=== PATIENT | male | born 1935 | race Caucasian/White ===

== ENCOUNTER 2017-01-02 12:20 | Inpatient (IN) ==
[2017-01-02] MEDS ORDERED: SALINE FLUSH 10ml SYRINGE IVF PRN (14:00)
--- OUTSIDE RECORDS SUMMARY | 2017-01-02 14:03 | External Medical Summary | Referral Summary ---
:1935 Author Organization [facility] Address [address] [place] [address] Care Team Providers Name Role Phone Daryl Solis I Primary Care Physician Encounter VC Date(s): 05/29/16 - 06/07/16 [facility] [address] [place] [address] [phone] Discharge Disposition: 01-Home or Self Care Attending Physician: Barb Valentine DO Admitting Physician: Eleni Belcher DO Vital Signs Most recent to oldest [Reference Range]: 1 Temperature Axillary [35.2-36.7 degC] 37 degC *HI* (06/05/16 8:45 PM) Temperature Oral [35.8-37.3 degC] 36.5 degC (06/07/16 4:00 PM) Temperature Temporal Artery [36.3-37.8 degC] 36.8 degC 1 (06/05/16 4:00 AM) Peripheral Pulse Rate [60-100 bpm] 65 bpm (06/07/16 4:00 PM) Heart Rate Monitored [60-100 bpm] 84 bpm 2 (06/03/16 12:40 AM) Respiratory Rate [14-20 br/min] 16 br/min (06/07/16 4:00 PM) Blood Pressure [90-140/60-90 mmHg] 127/69 mmHg (06/07/16 4:00 PM) Mean Arterial Pressure, Cuff 100 mmHg (06/06/16 8:40 PM) SpO2 97 % (06/07/16 4:00 PM) Remote Telemetry Ongoing (06/06/16 9:05 PM) 1Result Comment: WILL RECHECK BP, JUST INC/ BED [id number] Comment: Per Caitie at [facility], pt. sleeping at this time. [facility] notified RNof rhythm and rate at 0046 Problem List Condition Effective Dates Status Health Status Informant Acute pain(Confirmed) Active CAD (coronary artery Active patient disease)(Confirmed) At risk for falls(Confirmed)1 Active At risk for injury(Confirmed)2 Active At risk of pressure sore(Confirmed) Active Diabetes(Confirmed) Active patient HTN (hypertension)(Confirmed) Active patient Hypothyroid(Confirmed) Active patient Tissue perfusion Active alteration(Confirmed)3 DMII (diabetes mellitus, type Active patient 2)(Confirmed) Urinary incontinence(Confirmed)4 Active 1This problem was added by Discern Expert.2Problem added automatically by system based on initiation of Risk for Injury Plan of [id number] added automatically by system based on initiation of Tissue Perfusion Cerebral Plan of [id number] added automatically by system based on initiation of Urinary Incontinence Plan of Care Allergies, Adverse Reactions, Alerts Substance Reaction Severity Status penicillin BODY STIFFNESS Active Medications aspirin 81 mg oral tablet 81 mg 1 tabs, Oral, Daily, # 30 tabs, 0 Refill(s) Start Date: 06/07/16 Status: Ordereddocusate sodium 100 mg oral capsule 100 mg 1 caps, Oral, BID, Constipation, 0 Refill(s) Start Date: 06/07/16 Status: Ordereddoxycycline monohydrate 100 mg oral tablet 100 mg 1 tabs, Oral, BID, X 5 days, # 10 tabs, 0 Refill(s) Start Date: 06/07/16 Stop Date: 06/12/16 Status: Orderedglimepiride 4 mg oral tablet 8 mg, Oral, Daily, # 60 tabs, 0 Refill(s) Start Date: 06/07/16 Status: Orderedlevothyroxine 50 mcg, Oral, Before Breakfast, 0 Refill(s) Start Date: 05/29/16 Status: OrderedLipitor 20 mg oral tablet 20 mg 1 tabs, Oral, Daily, # 30 tabs, 0 Refill(s) Start Date: 06/07/16 Status: Orderedlisinopril 20 mg oral tablet 20 mg 1 tabs, Oral, Daily, # 30 tabs, 0 Refill(s) Start Date: 06/07/16 Status: Orderedmeclizine 12.5 mg, Oral, TID, as needed for dizziness, 0 Refill(s) Start Date: 05/29/16 Status: Orderedmetoprolol tartrate 25 mg oral tablet 25 mg 1 tabs, Oral, BID, 0 Refill(s) Start Date: 05/29/16 Status: OrderedVimpat 50 mg oral tablet 50 mg 1 tabs, Oral, BID, # 180 tabs, 0 Refill(s) Start Date: 06/07/16 Stop Date: 09/05/16 Status: Ordered Results Hematology Most recent to oldest [Reference Range]: 1 WBC [4.8-10.8 10*3/uL] 7.2 10*3/uL (06/07/16 5:36 AM) RBC [4.60-6.20] 4.45 *LOW* (06/07/16 5:36 AM) Hgb [14.0-18.0 gm/dL] 13.2 gm/dL *LOW* (06/07/16 5:36 AM) Hct [42.0-52.0 %] 39.0 % *LOW* (06/07/16 5:36 AM) MCV [82.0-99.0 fL] 87.6 fL (06/07/16 5:36 AM) MCH [27.0-32.0 pg] 29.7 pg (06/07/16 5:36 AM) MCHC [32.0-36.0 gm/dL] 33.8 gm/dL (06/07/16 5:36 AM) RDW [11.5-14.5 %] 13.0 % (06/07/16 5:36 AM) Platelet [150-400 10*3/uL] 214 10*3/uL (06/07/16 5:36 AM) MPV [9.4-12.3 fL] 9.6 fL (06/07/16 5:36 AM) Immature Granulocytes [0.0-1.0 %] 0.1 % (05/29/16 12:00 PM) Neutrophils [51-75 %] 89 % *HI* (05/29/16 12:00 PM) Lymphocytes [20-46 %] 5 % *LOW* (05/29/16 12:00 PM) Monocytes [4-11 %] 6 % (05/29/16 12:00 PM) Eosinophils [0-4 %] 0 % (05/29/16 12:00 PM) Basophils [0-2 %] 0 % (05/29/16 12:00 PM) Neutro Absolute [1.90-7.00] 7.52 *HI* (05/29/16 12:00 PM) Lymph Absolute [0.80-3.30] 0.44 *LOW* (05/29/16 12:00 PM) Weld Absolute [0.30-1.00] 0.52 (05/29/16 12:00 PM) Eos Absolute [0.00-0.50] 0.00 (05/29/16 12:00 PM) Baso Absolute [0.00-0.20] 0.01 (05/29/16 12:00 PM) Nucleated RBC Automated [0 /100 WBC] 0.0 /100 WBC (05/29/16 12:00 PM) Chemistry Most recent to oldest [Reference Range]: 1 Sodium Lvl [136-144 mEq/L] 136 mEq/L (06/07/16 7:05 AM) Potassium Lvl [3.6-5.1 mEq/L] 4.0 mEq/L (06/07/16 7:05 AM) Chloride [99-109 mEq/L] 101 mEq/L (06/07/16 7:05 AM) CO2 [22-32 mEq/L] 26 mEq/L (06/07/16 7:05 AM) AGAP [3-20] 9 (06/07/16 7:05 AM) BUN [4-20 mg/dL] 9 mg/dL (06/07/16 7:05 AM) Glucose Lvl [70-100 mg/dL] 158 mg/dL *HI* (06/07/16 7:05 AM) Creatinine Lvl [0.64-1.27 mg/dL] 0.71 mg/dL (06/07/16 7:05 AM) eGFR [>60] >60 1 (06/07/16 7:05 AM) Calcium Lvl [8.6-10.0 mg/dL] 8.9 mg/dL (06/07/16 7:05 AM) Albumin Lvl [3.5-4.8 gm/dL] 3.2 gm/dL *LOW* (06/03/16 6:00 AM) Total Protein [6.1-7.9 gm/dL] 5.6 gm/dL *LOW* (05/31/16 4:30 AM) Globulin [1.9-4.3 gm/dL] 2.7 gm/dL (05/31/16 4:30 AM) ALT [17-63 U/L] 12 U/L *LOW* (05/31/16 4:30 AM) AST [15-41 U/L] 24 U/L (05/31/16 4:30 AM) Alk Phos [26-104 U/L] 43 U/L (05/31/16 4:30 AM) Bili Total [0.2-1.2 mg/dL] 1.2 mg/dL 2 (05/31/16 4:30 AM) Magnesium Lvl [1.8-2.5 mg/dL] 1.9 mg/dL (06/04/16 11:32 AM) Phosphorus [2.4-4.7 mg/dL] 3.2 mg/dL 3 (06/03/16 6:00 AM) Total CK [49-397 U/L] 359 U/L (05/30/16 10:37 AM) Troponin [<0.06 ng/mL] 0.10 ng/mL 4 *HHI* (05/30/16 4:18 AM) Sodium Venous [136-144 mEq/L] 142 mEq/L (05/29/16 3:25 PM) Potassium Venous [3.6-5.1 mEq/L] 3.8 mEq/L 5 (05/29/16 3:25 PM) Calcium Ionized Venous [1.19-1.41 mmol/L] 1.06 mmol/L *LOW* (05/29/16 3:25 PM) Total CO2 Venous [25-29 mEq/L] 29 mEq/L (05/29/16 3:25 PM) HGB Venous NPT [14.0-16.0 gm/dL] 13.6 gm/dL *LOW* (05/29/16 3:25 PM) HCT Venous [42.0-52.0 %] 40.0 % *LOW* (05/29/16 3:25 PM) Glucose Venous [70-100 mg/dL] 324 mg/dL *HI* (05/29/16 3:25 PM) BUN Venous [4-20] 16 (05/29/16 3:25 PM) Creatinine Venous [0.7-1.2 mg/dL] 0.9 mg/dL (05/29/16 3:25 PM) Venous CL [99-109 mEq/L] 99 mEq/L (05/29/16 3:25 PM) Anion Gap, Tyrone [3-20] 14 (05/29/16 3:25 PM) Blood Glucose, Capillary [70-100 mg/dL] 151 mg/dL *HI* (06/07/16 1:57 PM) Chol [0-200 mg/dL] 126 mg/dL (05/29/16 12:00 PM) Trig [0-150 mg/dL] 95 mg/dL (05/29/16 12:00 PM) HDL [>40 mg/dL] 26 mg/dL *ABN* (05/29/16 12:00 PM) LDL [0-100 mg/dL] 81 mg/dL (05/29/16 12:00 PM) VLDL Cholesterol [0-30 mg/dL] 19 mg/dL (05/29/16 12:00 PM) Cardiac Risk [0.0-5.7] 4.8 (05/29/16 12:00 PM) Hgb A1c [4.1-5.6 %] 9.1 % *HI* (05/31/16 4:30 AM) eAvg Glucose 214.5 mg/dL (05/31/16 4:30 AM) 1Result Comment: Multiply eGFR results by 1.21 for race.2Result Comment: Naproxen, specifically the metabolite O-desmethylnaproxen, may cause spurious elevation in Total Bilirubin levels.3Result Comment: High dosages of liposomal Amphotericin B (AmBisome) therapy or other drug preparations that use a liposomal envelope to facilitate drug delivery may cause falsely elevated results for phosphorus.4Result Comment: Critical value called, and read-back verified. Called to MARCIA Geronimo at 05/30/2016 05:195Result Comment: This test was performed on a whole blood specimen. The presence or absence of hemolysis cannot be assessed. Hemolysis can falsely elevate potassium levels. Normals are for venous specimens only.Toxicology Most recent to oldest [Reference Range]: 1 U Amphetamine Scrn Negative (05/29/16 1:37 PM) U Cocaine Scrn Negative (05/29/16 1:37 PM) U Cannab Scrn Negative (05/29/16 1:37 PM) U Opiate Scrn Negative (05/29/16 1:37 PM) U PCP Scrn Negative (05/29/16 1:37 PM) U Benzodiazepine Scrn Negative (05/29/16 1:37 PM) U Barbiturate Scrn Negative (05/29/16 1:37 PM) Methadone Lvl Negative (05/29/16 1:37 PM) Tricyclics Not Detected 1 (05/29/16 1:37 PM) 1Result Comment: Cut-off concentrations: Amphetamines: 1000 ng/mL Cocaine: 300 ng/mL Cannabinoid: 50 ng/mL Opiate: 300 ng/mL Phencyclidine (PCP): 25 ng/mL Benzodiazepine: 200 ng/mL Barbiturate: 200 ng/mL Methadone: 300 ng/mL Tricyclic: 300 ng/mL The urine drug screen assays are qualitative screens. A more specific GC/MS method must be performed to obtain a confirmed analytical result. Unconfirmed screening results must not be used for non-medical purposes(e.g. employment or legal testing)Urinalysis Most recent to oldest [Reference Range]: 1 UA Color Yellow (06/05/16 6:14 PM) UA Appear Clear (06/05/16 6:14 PM) UA pH [5.0-8.0] 6.0 (06/05/16 6:14 PM) UA Leuk Est [Negative] Pos 1+ *ABN* (06/05/16 6:14 PM) UA Nitrite [Negative] Positive *ABN* (06/05/16 6:14 PM) UA Protein [Negative] Pos 1+ *ABN* (06/05/16 6:14 PM) UA Glucose [Negative] Pos 3+ *ABN* (06/05/16 6:14 PM) UA Ketones [Negative] Negative (06/05/16 6:14 PM) UA Urobilinogen [<1.0] Negative (06/05/16 6:14 PM) UA Bili [Negative] Negative (06/05/16 6:14 PM) UA Blood [Negative] Pos 1+ *ABN* (06/05/16 6:14 PM) UA Spec Grav [1.003-1.030] 1.015 (06/05/16 6:14 PM) Type Clean Catch (06/05/16 6:14 PM) UA WBC [0-4 /HPF] >50 /HPF *ABN* (06/05/16 6:14 PM) UA RBC [0-2] 0-2 (06/05/16 6:14 PM) Epithelial Cells None Seen (06/05/16 6:14 PM) UA Bacteria Rare (06/05/16 6:14 PM) UA Mucous Present (06/05/16 6:14 PM) Microbiology Reports TEST:Urine Culture STATUS:Auth (Verified) BODY SITE: SOURCE:Urine COLLECTED DATE/TIME:06/05/16 6:14 PMUrine Culture- - - - - - - Positive urine culture (even if >100,000 cfu/ml) without presence of symptoms does not require antibiotic treatment unless the patient is or undergoing urinary surgery. Please document as bacteriuria. Staphylococcus, coagulase negative >100,000 cfu/ml ORGANISM:Staphylococcus coagulase negative Immunizations No data available for this section Procedures No data available for this section Social History Social History Type Response Smoking Status Never smoker Assessment and Plan No data available for this section
--- NOTE | 2017-01-02 14:26 | Emergency Department Report ---
General Adult HPI - General Chief complaint: Weakness Stated complaint: dizzy,weakness,fall,no balance Time Seen by Provider: 01/02/17 13:53 Source: patient, family Mode of arrival: ambulatory Limitations: no limitations - History of Present Illness HPI narrative: 81-year-old male presents to the emergency department with a chief complaint of generalized weakness which has been increasing over the past 2 weeks. Patient states that he was weak earlier today and suffered a fall because of the weakness. Patient notes that he did hit the left side of his ribs against a kitchen appliance. Patient notes a mild dull discomfort locally at the site of injury. No other complaints or associated symptoms. He was at home when his symptoms began. Symptoms have been persistent in nature since onset. No other complaints or associated symptoms. - Related Data Home Medications Medication Instructions Recorded Confirmed Cyanocobalamin (Vitamin B-12) 1,000 mcg PO DAILY #0 tab 05/04/16 01/02/17 [Vitamin B-12] Aspirin 81 mg PO DAILY 01/02/17 01/02/17 Coenzyme Q-10 [Co Q-10] 200 mg PO DAILY 01/02/17 01/02/17 Duloxetine [Cymbalta] 90 mg PO DAILY 01/02/17 01/02/17 Glimepiride [Amaryl] 8 mg PO WB 01/02/17 01/02/17 Lisinopril [Prinivil] 10 mg PO DAILY 01/02/17 01/02/17 Meclizine HCl 12.5 mg PO TID PRN 01/02/17 01/02/17 Pioglitazone [Actos] 30 mg PO DAILY 01/02/17 01/02/17 Pravastatin Sodium 80 mg PO HS 01/02/17 01/02/17 Previous Rx's Medication Instructions Recorded Levothyroxine Sodium 50 mcg PO ACB #30 tab 05/09/16 Nitroglycerin Oint [Nitro-Bid] 0.5 inch TOP O #0.5 inch 01/02/17 Allergies Allergy/AdvReac Type Severity Reaction Status Date / Time hydrochlorothiazide Allergy Intermediate SWELLING Verified 01/02/17 13:30 Penicillins Allergy Unknown Verified 01/02/17 13:30 losartan potassium Allergy Intermediate SWELLING Uncoded 12/28/11 17:09 pioglitazone HCl Allergy Mild FLUID Uncoded 12/28/11 17:09 RETENTION midazolam HCl Allergy Unknown Uncoded 12/28/11 17:09 Review of Systems Constitutional: Reports: weakness (generalized). Denies: fever, chills Eyes: Denies: eye pain, eye discharge ENT: Denies: ear pain, throat pain Cardiovascular: Denies: chest pain, palpitations Respiratory: Denies: cough, dyspnea Gastrointestinal: Denies: abdominal pain, nausea, vomiting, diarrhea Genitourinary: Denies: urgency, dysuria Musculoskeletal: Denies: back pain, arthralgia Integumentary: Denies: erythema, rash Neurological: Denies: headache, numbness Psychiatric: Denies: anxiety, depression Endocrine: Denies: fatigue, heat or cold intolerance Hematological/Lymphatic: Denies: easy bleeding, easy bruising Allergic/Immunologic: Denies: facial swelling, urticaria PFSH Patient Stated Medical History Cataracts Yes Coronary Artery Disease Yes Hypertension Yes Diabetes Mellitus Type 2 Yes Hx Urinary Tract Infection Yes Surgical History: CABG Family History: Reviewed and Non-contributory. - Social History Smoking status: Never smoker Substance use type: does not use Alcohol intake frequency: does not drink Physical Exam - Limitations Limitations: no limitations - General General appearance: alert, in no apparent distress - Normal Exams: Head:: Normocephalic without trauma Eyes:: Pupils are PERRLA w/ EOMI, No scleral icterus, irritation, or foreign bodies noted ENMT:: No facial trauma, nasal exudates, pharyngeal erythema, or exudates are noted Dental: No fractured, loose, or missing teeth noted Neck:: Full range of motion, without adenopathy, JVD, bruits or thyromegaly (No midline tenderness or deformity of the cervical spine. ) Chest/Respirations:: Clear all brewer, with good airflow, and symmetry bilaterally (L ribs tender to palpation without crepitus. No sign of trauma. ) Cardiovascular:: Regular rate and rhythm, without murmur or gallop, Pulses 2+ all extremities, capillary refill, <2 seconds all extremities Abdomen:: Bowel sounds positive, soft, non-tender, non-distended, no hepatosplenomegaly, masses or bruits noted Lymphatic:: No lymphadenopathy, or lymphedema noted Musculoskeletal:: No tenderness, or deformity noted, good range of motion, all extremities Integumentary:: No rashes, hives, or bruising noted, hair and nails, without abnormality Neurological:: Patient is alert, and oriented, cranial nerves, motor/sensory/ cerebellar, exams w/o gross deficits, to observation Psychiatric:: Patient exhibits, appropriate attention, emotion and affect Course Vital Signs Temperature 98.1 F 01/02/17 12:30 Pulse Rate 62 01/02/17 12:30 Respiratory Rate 18 01/02/17 12:30 Blood Pressure 103/52 01/02/17 12:30 Pulse Oximetry 99 01/02/17 12:30 Temperature 98.2 F 01/02/17 20:00 Pulse Rate 73 01/03/17 06:00 Respiratory Rate 27 H 01/03/17 06:00 Blood Pressure 168/76 H 01/03/17 06:00 Pulse Oximetry 100 01/03/17 06:00 Medical Decision Making - [facility] Narrative Medical decision making narrative: Labs / imaging were discussed in detail with the patient and family and questions are answered. Patient's potassium is noted to be 2.0. While in the emergency department the patient has 2 separate episodes and noted to be bradycardic in the 30s and recovered to the 50s. Patient is discussed with Dr. Ramirez who will see the patient in consultation and admitted to the service of the hospitalist Dr. Pennington. Patient is admitted to the hospital in improved condition. 40 meq of potassium by mouth 1 and 40 meq of potassium intravenously were ordered. Patient is admitted to the intensive care unit in improved condition. No further orders from accepting or consulting physicians who were in agreement with the current plan of management. Patient is admitted to the hospital in improved condition. - Differential Diagnosis Symptomatic bradycardia, rib fx, metabolic disorder, dehydration - Lab Data Result diagrams: 01/03/17 04:30 01/03/17 04:30 Lab Results 01/02/17 01/02/17 Range/Units 14:24 14:24 WBC 6.3 (4.5-11.0) T/MM3 RBC 3.62 L (4.50-5.90) M/MM3 Hgb 10.4 L (13.5-17.5) GM/DL Hct 32.6 L (41-53) % MCV 90.1 (80-100) UM3 MCH 28.7 (26-34) UUG MCHC 31.9 (31-37) GM/DL RDW Std Deviation 49.0 (36.9-50.2) FL Plt Count 167 (130-400) T/MM3 MPV 9.8 (9.4-12.4) UM3 Immature Gran % (Auto) 0.2 (0.0-0.5) % Neut % (Auto) 79.1 H (33-66) % Lymph % (Auto) 15.0 L (23-45) % Burnet % (Auto) 4.9 (0-9.0) % Eos % (Auto) 0.6 (0-4) % Baso % (Auto) 0.2 (0-2) % Neut # 5.0 (1.8-7.7) T/MM3 Lymph # 1.0 (1-4.8) T/MM3 Burnet # 0.3 (0-0.8) T/MM3 Eos # 0.0 (0-0.5) T/MM3 Baso # 0.0 (0-0.2) T/MM3 Abs Immat Gran (auto) 0.01 (0.00-0.03) T/MM3 Turbidity < 20 (0-20) Sodium 143 (134-144) MEQ/L Potassium 2.0 L* (3.6-5) MEQ/L Chloride 92 L (98-107) MEQ/L Carbon Dioxide 41 H* (22-30) MEQ/L Anion Gap 10 (5-15) MEQ/L BUN 14.0 (9-20) MG/DL Creatinine 1.0 (0.8-1.5) MG/DL GFR Calculation 72 BUN/Creatinine Ratio 14 (6-26) RATIO Glucose 254 H (75-110) MG/DL Calculated Osmolality 285 H (261-280) MOSM/KG Calcium 9.0 (8.4-10.2) MG/DL Total Bilirubin 1.30 (0.20-1.30) MG/DL Icterus Index < 2 (0-7) AST 20 (17-59) U/L ALT 27 (21-72) U/L Alkaline Phosphatase 82 (38-126) U/L Troponin I 0.068 (0-0.12) ng/ml Total Protein 6.8 (6.3-8.2) G/DL Albumin 3.6 (3.5-5.0) G/DL Globulin 3.2 (2.4-3.6) G/DL Albumin/Globulin Ratio 1.1 (1.1-2.2) RATIO TSH 1.37 (0.47-4.68) MIU/L Specimen Hemolysis < 15 (0-25) - Radiology Data CT HEAD - No acute processes. L Ribs with Chest X-ray: Non-displaced 10th rib fracture otherwise negative. - EKG Data EKG #1 EKG results narrative: Sinus bradycardia. 1st degree AV block. No STEMI. 52 bpm. Disposition Clinical Impression: hypokalemia, bradycardia Rib fracture Qualifiers: Encounter type: initial encounter Rib fracture type: single rib Fracture type: closed Laterality: left Qualified Code(s): S22.32XA - Fracture of one rib, left side, initial encounter for closed fracture [place] [facility] [place] Condition: Stable Time of Disposition: 15:00 (Admit. Dr. Pennington. ) - Seen By: physician
--- NOTE | 2017-01-02 14:49 | CT Scan Report ---
EXAM: CT head/brain wo con DATE: 01/02/2017 12:00 AM ENCOUNTER: Initial INDICATION: dizzy COMPARISON: 12/28/2011 TECHNIQUE: 5 mm axial tomographic images were obtained of the head without contrast. The current CT scan was performed using radiation dose-reduction techniques. FINDINGS: Ill defined hypoattenuations within the periventricular deep white matter, a nonspecific finding, however most suggestive of chronic small vessel ischemic disease. Intracranial atherosclerotic calcifications noted. The ward-white matter junction is otherwise normal. No intra or extra-axial mass or hemorrhage is identified. There is no midline shift. Symmetric prominence of the ventricles and cerebral sulci consistent with age appropriate cerebral volume loss. The ventricles are otherwise normal in shape and morphology. The basilar cisterns are patent. No acute osseous or soft tissue abnormality. Near complete opacification of the left sphenoid sinus with high-density material suggesting chronic inspissated secretions. The remaining visualized paranasal sinuses are normal. The visualized portions of the orbits and globes are normal. The mastoid air cells are clear. IMPRESSION: 1. No acute intracranial process identified by CT. 2. Age appropriate cerebral volume loss and mild chronic small vessel ischemic disease. 3. Likely chronic left sphenoid sinus disease. .
--- NOTE | 2017-01-02 15:07 | XRay Report ---
Indication: Injury Procedure: XR ribs LT min 3V w [id number]: Encounter: Initial Comparison: Chest radiographs 12/28/2011 Technique: An AP view of the chest and three views of the left ribs were obtained. Findings: Lungs and airways: Normal lung volumes. No focal airspace consolidation. Normal pulmonary vasculature. Pleura: No pleural effusion or pneumothorax. Heart and mediastinum: Postoperative changes of CABG. The cardiomediastinal silhouette and great vessels are otherwise within normal limits. Subtle cortical irregularity of the lateral left 10th rib seen only on the last of the submitted images. No acute osseous abnormality is seen. Postoperative changes of median sternotomy. Degenerative arthrosis of the AC joints. Impression: Nondisplaced lateral left 10th rib fracture with no pneumothorax or pleural effusion identified. .
[2017-01-02] MEDS ORDERED: POTASSIUM CHLORIDE PREMIX 10 MEQ/100 ML BAG IV SCH (16:00)
[2017-01-02] MEDS: NITROGLYCERIN 2% OINTMENT 1gm PACKET TP SCH ×2 (16:47→22:33)
[2017-01-02] MEDS: LIDOCAINE 1% 2ml INJ 10 MG, POTASSIUM CHLORIDE INJ 10 MEQ in NS 100 ML IV SCH ×4 (17:23→21:03)
--- NOTE | 2017-01-02 17:27 | History & Physical Report ---
<Cherry Johnson - Last Filed: 01/02/17 18:23> History of Present Illness Date: 01/02/17 Chief complaint: weakness, fall HPI: Riccardo Ackerman is an 81 year old male who was taken to [facility] ED for weakness and falling. Apparently over the last several months, he's had issues with weakness and falling - in more detail, however, he describes near-syncope/syncope, especially when he changes positions (i.e. bends down to pull his pants up). It most frequently occurs after urinating, but he reports feeling lightheaded/dizzy , like he's going to black out, when he changes positions doing other activities as well. He was admitted to [facility] in May, 2016 for stroke like symptoms. MRI at that time was negative for stroke, but neurology felt that he was having complex partial seizures and started him on Vimpat (which he's no longer taking for 2 reasons - first it was too expensive and second they didn't feel that he was having seizures - never had a witnessed one). After this hospitalization he lived with his daughter and son-in-law for about a month and then moved back home. However, family noticed increased weakness for about the last month, and recently took his keys away because they don't feel safe with him driving. He doesn't have a regular dietary intake and eats at odd times of the day - family also state that when they checked on him today he told them he hadn't eaten anything for 3 days (which he then denied to me). He has been trying to lose weight b/c his former PCP told him that if he lost 40 lbs he would no longer be diabetic, so over the last 6-7 months he's gone from 180 lbs to 140 lbs (but is still diabetic). His sugars typically range between 200-250 ( hgb A1c was 9.3% on 12/14/16). He also admits that he occasionally forgets to take his home meds, but this isn't too often. He has diabetic peripheral neuropathy to both feet but otherwise denies any paresthesias. No unilateral weakness, dysphagia, or choking. His son-in-law reports slurring of speech when he's dizzy, but overall denies any mental status changes other than occasional forgetfulness. He finished a course of abx for UTI last week, but doesn't get UTIs that often, despite having difficulty starting his stream of urine and difficulty emptying his bladder. He denies chest pain, palpitations, dyspnea, or recent leg swelling. He hasn't been sleeping well recently - has nocturia ( which was worse when he had the UTI). He denies any abdominal pain, nausea/ vomiting, constipation, or diarrhea. In the ED he was found to be profoundly hypokalemic with a level of 2.0. In addition, his palpated HR initially was in the 20s. By the time he was placed on the monitor it had improved into the 50-60s. However, during this interview his rhythm changed to bigeminy with a perfusing rate in the 30s - he remained asymptomatic and this resolved prior to transfer to the CCU. His BP increased greatly to 215/90s after hospital admission was recommended. CBC was unremarkable except for mild normocytic anemia (which is chronic). CT head was negative for acute findings. He was given PO and IV K bolus and admitted to the hospitalist service as an inpatient for electrolyte replacement and cardiac irritability with underlying CAD and DM. Review of Systems Comprehensive ROS: completed and no additional positive findings except those as stated - Constitutional Constitutional: Present: as per HPI - EENMT Eyes: Present: blurry vision (ever since cataracts removed) - Cardiovascular Cardiovascular: Absent: chest pain Vascular: Present: see HPI - Respiratory Respiratory: Present: as per HPI. Absent: cough - Gastrointestinal Gastrointestinal: Present: as per HPI - Genitourinary Genitourinary: Present: as per HPI - Musculoskeletal Musculoskeletal: Present: as per HPI - Integumentary/Breasts Integumentary: Present: rash (to left forearm) - Neurological Neurological: Present: as per HPI - Psychiatric Psychiatric: Present: as per HPI - Endocrine Endocrine: Present: as per HPI PFS CAD HTN History of syncope Type 2 DM, A1c was 9.3% on 12/14/16 Diabetic peripheral neuropathy Hypothyroidism - TSH was 0.96 on 12/14/16 Dyslipidemia Prostate cancer - radiation around 2006 Previous diagnoses of dementia (vascular vs. 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 Echocardiogram showed an EF of 55%, was otherwise unremarkable (read by Amira Gerber). * JENNIFER (creatinine peaked 1.7) - resolved * Uncontrolled diabetes - Hgb A1c 9.1 - glimepiride increased 8mg daily * Hypokalemia (mild) /Hypomagnesemia He was hospitalized at [facility] in 2011 with polymorphic VT and bradycardia, at which time he was mildly hypokalemic Surgical History: CABG x4 in 2010. Coronary stent x2. 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 Solis in [place]) CV _ used to see Dr. Chisholm but hasn't seen him for a while (doesn't wish to follow with him any longer) Medications Home Medications Medication Instructions Recorded Confirmed Type Cyanocobalamin (Vitamin B-12) 1,000 mcg PO DAILY #0 tab 05/04/16 01/02/17 History [Vitamin B-12] Aspirin 81 mg PO DAILY 01/02/17 01/02/17 History Coenzyme Q-10 [Co Q-10] 200 mg PO DAILY 01/02/17 01/02/17 History Duloxetine [Cymbalta] 90 mg PO DAILY 01/02/17 01/02/17 History Glimepiride [Amaryl] 8 mg PO WB 01/02/17 01/02/17 History Lisinopril [Prinivil] 10 mg PO DAILY 01/02/17 01/02/17 History Meclizine HCl 12.5 mg PO TID PRN 01/02/17 01/02/17 History Pioglitazone [Actos] 30 mg PO DAILY 01/02/17 01/02/17 History Pravastatin Sodium 80 mg PO HS 01/02/17 01/02/17 History Allergies Allergy/AdvReac Type Severity Reaction Status Date / Time hydrochlorothiazide Allergy Intermediate SWELLING Verified 01/02/17 13:30 Penicillins Allergy Unknown Verified 01/02/17 13:30 losartan potassium Allergy Intermediate SWELLING Uncoded 12/28/11 17:09 pioglitazone HCl Allergy Mild FLUID Uncoded 12/28/11 17:09 RETENTION midazolam HCl Allergy Unknown Uncoded 12/28/11 17:09 Exam Vital Signs: Temperature 98.1 F 01/02/17 12:30 Pulse Rate 56 L 01/02/17 16:45 Respiratory Rate 23 01/02/17 16:45 Blood Pressure 215/91 H 01/02/17 16:20 Pulse Oximetry 100 01/02/17 16:45 Telemetry Ectopy: Bigeminal PVC - Constitutional Present: no acute distress, well developed, thin - Routine HEENT Exam Head: Present: normocephalic Eye: Present: EOMI ENT: Present: mucous membranes moist, oropharynx clear. Absent: dentition normal (edentulous) - Routine Neck Exam Present: supple, lymphadenopathy (anterior cervical) - Routine Respiratory Exam Present: CTA bilaterally - Routine Cardiovascular Exam Present: S1, S2, bradycardia - Routine Abdominal Exam Present: soft, normoactive bowel sounds, non distended, non tender Comments: scaphoid abdomen - Routine Extremities Exam Present: no edema, pulses intact - Routine Skin Exam Present: intact, dry, pallor, warm, rash (left forearm (mild)) - Routine Neurological Exam Present: alert, oriented X3, CN II-XII intact, normal speech. Absent: motor deficit, altered mental status, nystagmus, facial asymmetry - Routine Psychiatric Exam Present: normal affect, normal thought process, cooperative Results - Labs CBC & Chem 7: 01/02/17 14:24 01/02/17 14:24 - ECG Data Tracing #1 Bradycardia Prolonged QT (U wave noted) Subtle ST depression in anterior leads - Imaging and Cardiology CT scan - head Status: image reviewed by me Additional comments: Type of Exam(s): CT head/brain wo con DATE: 01/02/2017 Ill defined hypoattenuations within the periventricular deep white matter, a nonspecific finding, however most suggestive of chronic small vessel ischemic disease. Intracranial atherosclerotic calcifications noted. The ward-white matter junction is otherwise normal. No intra or extra-axial mass or hemorrhage is identified. There is no midline shift. Symmetric prominence of the ventricles and cerebral sulci consistent with age appropriate cerebral volume loss. The ventricles are otherwise normal in shape and morphology. The basilar cisterns are patent. No acute osseous or soft tissue abnormality. Near complete opacification of the left sphenoid sinus with high-density material suggesting chronic inspissated secretions. The remaining visualized paranasal sinuses are normal. The visualized portions of the orbits and globes are normal. The mastoid air cells are clear. IMPRESSION: 1. No acute intracranial process identified by CT. 2. Age appropriate cerebral volume loss and mild chronic small vessel ischemic disease. 3. Likely chronic left sphenoid sinus disease. Chest x-ray Status: image reviewed by me Additional comments: Date of Exam: 01/02/17 Type of Exam(s): XR ribs LT min 3V w CXR1V Findings: Lungs and airways: Normal lung volumes. No focal airspace consolidation. Normal pulmonary vasculature. Pleura: No pleural effusion or pneumothorax. Heart and mediastinum: Postoperative changes of CABG. The cardiomediastinal silhouette and great vessels are otherwise within normal limits. Subtle cortical irregularity of the lateral left 10th rib seen only on the last of the submitted images. No acute osseous abnormality is seen. Postoperative changes of median sternotomy. Degenerative arthrosis of the AC joints. Impression: Nondisplaced lateral left 10th rib fracture with no pneumothorax or pleural effusion identified. Assessment and Plan (1) Hypokalemia Current visit: Yes Status: Acute DVT Prophylaxis: Lovenox Resuscitation Status: Full Code Assessment and Plan: ASSESSMENT Severe hypokalemia with bradycardia and bigeminy HTN with markedly elevated pressures CAD History of syncope Possible history of partial complex seizures - no longer on antiepileptic (was on Vimpat) Type 2 DM, A1c was 9.3% on 12/14/16 Diabetic peripheral neuropathy Hypothyroidism - TSH was 0.96 on 12/14/16 Dyslipidemia Prostate cancer - S/P radiation around 2006 PLAN Admit to CCU, inpatient status. Consult Dr. Wilkerson regarding cardiac ectopy. Case discussed with him. NTG paste ordered per attending. Replace K IV + PO. Check Mg. Recheck K this evening. History of urine retention and recent UTI - check UA. Straight cath if retention of 500 mL. Uncontrolled DM - monitor postprandial sugars. Resume diabetic meds. SSI (pt had been on insulin in the past, but chart from [facility] indicated he refused it). Advanced directives: Daughter Emilee is medical DPOA; Full code but wouldn't want life prolonged if there is little chance of recovery - i.e. no feeding tube. Family is aware of wishes. PCP: Dr. Paz. Hospital Course Summary Disclaimer: The visit summary below is not to be considered part of the above Progress Note. Hospital Course: 01/02/17 ASSESSMENT Severe hypokalemia with bradycardia and bigeminy HTN with markedly elevated pressures CAD History of syncope Possible history of partial complex seizures - no longer on antiepileptic (was on Vimpat) Type 2 DM, A1c was 9.3% on 12/14/16 Diabetic peripheral neuropathy Hypothyroidism - TSH was 0.96 on 12/14/16 Dyslipidemia Prostate cancer - S/P radiation around 2006 PLAN Admit to CCU, inpatient status. Consult Dr. Wilkerson regarding cardiac ectopy. Case discussed with him. NTG paste ordered per attending. Replace K IV + PO. Check Mg. Recheck K this evening. History of urine retention and recent UTI - check UA. Straight cath if retention of 500 mL. Uncontrolled DM - monitor postprandial sugars. Resume diabetic meds. SSI (pt had been on insulin in the past, but chart from [facility] indicated he refused it). Advanced directives: Daughter Emilee is medical DPOA; Full code but wouldn't want life prolonged if there is little chance of recovery - i.e. no feeding tube. Family is aware of wishes. PCP: Dr. Paz. <Ian Pennington - Last Filed: 01/02/17 18:58> History of Present Illness Date: 01/02/17 Exam Vital Signs: Temperature 98.1 F 01/02/17 12:30 Pulse Rate 56 L 01/02/17 16:45 Respiratory Rate 23 01/02/17 16:45 Blood Pressure 215/91 H 01/02/17 16:20 Pulse Oximetry 100 01/02/17 16:45 Results - Labs CBC & Chem 7: 01/02/17 14:24 01/02/17 18:04 Assessment and Plan (1) Hypokalemia Current visit: Yes Status: Acute GI Prophylaxis: other Assessment and Plan: Pt was seen and examined with Cherry in the ED. Noted above history findings as well as documented Physical exam findings. Pt SBP was very high and he was given Nitropaste. ED doctor reported pt HR was in the 20's at one time. Per Cherry pt went onto bigemi pattern with pulse deficit of 40/min - EKG showed HR of 80 every other beat was not felt. Pt is type II DM and states his HbA1c was 14% in the recent past but the last one was 9% PE Cachectic NC/AT Chest increased AP diameter - RRR Abd soft NT/ND Ext no edema. Diagnosis 1) Hypokalemia in a pt with uncontrolled HTN (Systolic) could be due to hyperaldosteronism - also with bradycardia and frequent PVCs in a pt with H.O CAD S/P CABG in the past. - R/O [place] - admit to the ICU - Syncope or near syncope - Check orthostatic BP - Cardiology consult as above. 2) Type II DM with HbA1C of 9.3% with macrovascular disease (CAD) and microvascular disease (neuropathy) - Will add Sliding scale. - get old records if needed to review diabetic control. 3) H.O Partial seizures - Was on Vimpat. No symptoms to suggest temporal lobe epilepsy at this time. 4) Hypothyroidism 5) H.O Prostate cancer. - H.O LUTS - with urinary rentention - cath if needed. Code status - FULL CODE> - Time spent with patient greater than 35 minutes Hospital Course Summary Disclaimer: The visit summary below is not to be considered part of the above Progress Note.
[2017-01-02] MEDS: ASPIRIN 81 MG CHEWABLE TABLET PO SCH (17:50)
[2017-01-02] MEDS: LISINOPRIL 10 MG TABLET PO SCH (17:50)
[2017-01-02] MEDS: ENOXAPARIN 40 MG/0.4 ML INJECTION SQ SCH (18:58)
[2017-01-02] MEDS: INSULIN ASPART 100unit/ml INJECTION SQ PRN (20:36)
[2017-01-03] MEDS: NITROGLYCERIN 2% OINTMENT 1gm PACKET TP SCH ×2 (04:09→11:51)
[2017-01-03] MEDS: LEVOTHYROXINE 50 MCG TABLET PO SCH (05:54)
[2017-01-03] MEDS: INSULIN ASPART 100unit/ml INJECTION SQ PRN ×4 (06:09→20:24)
[2017-01-03] MEDS: DULOXETINE 30 MG CAPSULE PO SCH (08:45)
[2017-01-03] MEDS: ASPIRIN 81 MG CHEWABLE TABLET PO SCH (08:45)
[2017-01-03] MEDS: LISINOPRIL 10 MG TABLET PO SCH (08:46)
[2017-01-03] MEDS: ENOXAPARIN 40 MG/0.4 ML INJECTION SQ SCH (08:46)
[2017-01-03] MEDS ORDERED: SPIRONOLACTONE 50 MG TABLET PO SCH (09:00)
--- NOTE | 2017-01-03 10:56 | Progress Note ---
Subjective: Pt states he is feeling a bit better today. Denies any near syncope or dizzy spells since admission. Objective Vital signs: Temperature 98.2 F 01/02/17 20:00 Pulse Rate 64 01/03/17 10:00 Respiratory Rate 19 01/03/17 10:00 Blood Pressure 136/65 01/03/17 10:00 Pulse Oximetry 95 01/03/17 10:00 Rhythm: Normal Sinus Rhythm Height/Weight/BMI: Height 5 ft 8 in Weight 63.8 kg Body Mass Index 21.4 - Constitutional Present: no acute distress, cachectic - Routine HEENT Exam Head: Present: normocephalic, atraumatic Eye: Present: EOMI, PERRL - Routine Respiratory Exam Present: accessory muscle use, CTA bilaterally - Routine Cardiovascular Exam Present: RRR, S1, S2 - Routine Abdominal Exam Present: soft, non distended, non tender - Routine Extremities Exam Absent: cyanosis, clubbing, edema - Routine Back/Spine/Pelvis Exam Back/Spine: Present: full ROM - Routine Neurological Exam Present: alert, oriented X3, CN II-XII intact - Routine Psychiatric Exam Present: normal affect, cooperative Results - Labs CBC & Chem 7: 01/03/17 04:30 01/03/17 04:30 Assessment and Plan (1) Hypokalemia Current visit: Yes Status: Acute DVT Prophylaxis: Lovenox GI Prophylaxis: other Resuscitation Status: Full Code Assessment and Plan: SUMMARY - This is a 81 YO male that was admitted yesterday due to recurrent falls at home, dizzy spells, near syncope. Pt SBP was very high in the ED, and he was given Nitropaste. ED doctor reported pt HR was in the 20's at one time. Per Cherry pt went onto bigemi pattern with pulse deficit of 40/min - EKG showed HR of 80 every other beat was not felt. Pt is type II DM and states his HbA1c was 14% in the recent past but the last one was 9% Rib X rays ".............................. Impression: Nondisplaced lateral left 10th rib fracture with no pneumothorax or pleural effusion identified. ..........................................." Diagnosis 1) S/P fall in a pt with marked hypertension in the ED and hypokalemia - with 10th rib fracture. Pt has extensive cardiac history including CABG and stents x 4. A) Hypertension and Hypokalemia - could be due to hyperaldosteronism - Aldosterone level ordered as well as renin. - Start Aldactone 50mg/day (01/03) - Cardiology consult with Dr Wilkerson has been completed. B) H/O CAD - No evidence of acute PR - TnI x 2 negative will check a third sample. - No pauses reported. 2) Type II DM with poor control per pt, reports last HbA1C of 9.3% with macrovascular disease (CAD) and microvascular disease (neuropathy) - Will add Sliding scale, continue close observation in the ICU. - Resume pravastatin 80mg/day 3) H.O Partial seizures - Was on Vimpat. No symptoms to suggest temporal lobe epilepsy at this time. 4) Hypothyroidism - TSH is normal. 5) H.O Prostate cancer. - H.O LUTS - with urinary rentention - cath if needed. PREVENTION DVT - LOVENOX PUD - OMEPRAZOLE. Code status - FULL CODE - Time spent with patient 25 - 35 minutes Sepsis Assessment - Evaluation Sepsis screening result: No Definite Risk Hospital Course Summary Disclaimer: The visit summary below is not to be considered part of the above Progress Note. Hospital Course: 01/02/17 ASSESSMENT Severe hypokalemia with bradycardia and bigeminy HTN with markedly elevated pressures CAD History of syncope Possible history of partial complex seizures - no longer on antiepileptic (was on Vimpat) Type 2 DM, A1c was 9.3% on 12/14/16 Diabetic peripheral neuropathy Hypothyroidism - TSH was 0.96 on 12/14/16 Dyslipidemia Prostate cancer - S/P radiation around 2006 PLAN Admit to CCU, inpatient status. Consult Dr. Wilkerson regarding cardiac ectopy. Case discussed with him. NTG paste ordered per attending. Replace K IV + PO. Check Mg. Recheck K this evening. History of urine retention and recent UTI - check UA. Straight cath if retention of 500 mL. Uncontrolled DM - monitor postprandial sugars. Resume diabetic meds. SSI (pt had been on insulin in the past, but chart from [facility] indicated he refused it). Advanced directives: Daughter Emilee is medical DPOA; Full code but wouldn't want life prolonged if there is little chance of recovery - i.e. no feeding tube. Family is aware of wishes. PCP: Dr. Paz.
--- NOTE | 2017-01-03 12:58 | Cardiology Consult Note ---
History of Present Illness Consult date: 01/03/17 History of present illness: Chief complaint arrhythmia Mr. Ackerman is a pleasant 81-year-old occasion male with a CABG he is to be seen by Dr. Peres at [facility] [address]. He was brought [place] [facility] [place] on 01/02/2017 following a fall. It happened in the bathroom as he was done he leaned forward and held on against rack to pull up his pants and then he describes feeling "and "numb all over and about to blackout and very lightheaded he fell down and besides his CAT. He denies preceding chest pain or pressure or palpitations. In the emergency room and before he was attached to the telemetry and he was reported to have a pulse rate in the 20s and we was placed on the telemetry he was found to have a frequent PVCs including ventricular bigeminy suite appears to his peripheral pulse was inaccurate. He was also found to be profoundly hypokalemic level of 2 is been getting intravenous and oral potassium chloride his and his potassium up to 2.9- 3.0 range. Patient apparently has been not eat has not been eating for over a month he has lost 40 pounds over several months. He has had falls for about 2 months and long-standing history of orthostatic hypotension documented in the past and the redemonstrated today here in CCU. Patient has been struggling also with confusion and issues been gradually declining for the last couple of years with his daughter his son-in-law is his main caregiver. They have not been any reported angina no unusual or new dyspnea or lower he has gotten short of breath with activity unchanged for several years. No orthopnea or PND. Patient was also noted to be I per tensive range of 200/90 is placed back on lisinopril. He is a started on spironolactone for hypokalemia and nitroglycerin paste was added for any concern about possible myocardial ischemia. Again patient denies any anginal type pain or change or significant in his shortness of breath. He is complaining of some rib pain since his fall which is readily reproducible by palpation. At one point there was a concern about possible seizure due to her mental status changes and confusion after falls and he was treated with an antiepileptic drug. Previous hospitalization months ago at [facility] also noted to have orthostatic hypotension and echocardiogram at that time read by Dr. layton Gerber showed normal LV function with out significant valvular dysfunction. According to family patient has not had any heart catheterization since CABG in 2010 and no recent stress nuclear scan that the recall. Review of Systems Review of systems: Comprehensive review of system is Entirely negative except as in history of present illness and no diarrhea nausea or vomiting patient did have recurrent UTI for which treated with antibiotics - Constitutional Constitutional: Present: as per HPI, anorexia - Cardiovascular Vascular: Present: see HPI - Genitourinary Genitourinary: Present: as per HPI PFSH Patient Stated Medical History Cataracts Yes Coronary Artery Disease Yes Hypertension Yes Diabetes Mellitus Type 2 Yes Hx Urinary Tract Infection Yes Surgical History: CABG 4 in 2010. Previous coronary stents 2 at proceeded his CABG no previous MS - Social History Smoking status: Never smoker Substance use type: does not use Alcohol intake frequency: holidays/special occasions only Medications Home Medications Medication Instructions Recorded Confirmed Type Cyanocobalamin (Vitamin B-12) 1,000 mcg PO DAILY #0 tab 05/04/16 01/02/17 History [Vitamin B-12] Aspirin 81 mg PO DAILY 01/02/17 01/02/17 History Coenzyme Q-10 [Co Q-10] 200 mg PO DAILY 01/02/17 01/02/17 History Duloxetine [Cymbalta] 90 mg PO DAILY 01/02/17 01/02/17 History Glimepiride [Amaryl] 8 mg PO WB 01/02/17 01/02/17 History Lisinopril [Prinivil] 10 mg PO DAILY 01/02/17 01/02/17 History Meclizine HCl 12.5 mg PO TID PRN 01/02/17 01/02/17 History Pioglitazone [Actos] 30 mg PO DAILY 01/02/17 01/02/17 History Pravastatin Sodium 80 mg PO HS 01/02/17 01/02/17 History Allergies Allergy/AdvReac Type Severity Reaction Status Date / Time hydrochlorothiazide Allergy Intermediate SWELLING Verified 01/02/17 13:30 Penicillins Allergy Unknown Verified 01/02/17 13:30 losartan potassium Allergy Intermediate SWELLING Uncoded 12/28/11 17:09 pioglitazone HCl Allergy Mild FLUID Uncoded 12/28/11 17:09 RETENTION midazolam HCl Allergy Unknown Uncoded 12/28/11 17:09 Exam Vital signs: Temperature 98.2 F 01/02/17 20:00 Pulse Rate 64 01/03/17 12:00 Respiratory Rate 19 01/03/17 10:00 Blood Pressure 136/65 01/03/17 10:00 Pulse Oximetry 95 01/03/17 10:00 Positive orthostasis with a 40 point drop upon standing up to 90s systolic see nurse's note - Constitutional no acute distress, other (a chronically ill elderly) - Routine HEENT Exam Head: Present: normocephalic, atraumatic Eye: Present: EOMI, PERRL ENT: Present: mucous membranes moist - Routine Neck Exam Present: normal carotid upstroke. Absent: JVD, carotid bruit, lymphadenopathy, thyromegaly - Routine Chest/Breast/Axilla Exam Chest wall: Present: tenderness (left side) - Routine Respiratory Exam Present: CTA bilaterally. Absent: accessory muscle use, dyspnea, decreased breath sounds, rales, wheezes - Routine Cardiovascular Exam Present: RRR, murmur (soft 1/6 systolic murmur best heard at left lower sternal border) - Routine Abdominal Exam Present: soft, normoactive bowel sounds, non distended, non tender - Routine Extremities Exam Present: no edema, non tender, normal capillary refill. Absent: cyanosis, clubbing, pulses intact (mildly decreased pedal pulses bilaterally) - Routine Skin Exam Present: intact. Absent: cyanosis - Routine Neurological Exam Present: alert, oriented X3, CN II-XII intact, normal speech. Absent: motor deficit, facial asymmetry - Routine Psychiatric Exam Present: normal affect, cooperative Results 01/03/17 04:30 01/03/17 04:30 Cardiac Enzymes 01/03/17 01/03/17 Range/Units 04:30 11:10 Troponin I 0.071 0.049 (0-0.12) ng/ml CBC 01/03/17 Range/Units 04:30 WBC 10.7 D (4.5-11.0) T/MM3 RBC 3.62 L (4.50-5.90) M/MM3 Hgb 10.3 L (13.5-17.5) GM/DL Hct 32.1 L (41-53) % Plt Count 160 (130-400) T/MM3 Neut # Not performed Lymph # Not performed [place] # Not performed Eos # Not performed Baso # Not performed Comprehensive Metabolic Panel 01/02/17 01/02/17 01/03/17 Range/Units 18:04 22:12 04:30 Sodium 140 140 (134-144) MEQ/L Potassium 2.4 L* D 3.0 L D 2.9 L* (3.6-5) MEQ/L Chloride 95 L 94 L (98-107) MEQ/L Carbon Dioxide 34 H 38 H (22-30) MEQ/L BUN 20.0 26.0 H (9-20) MG/DL Creatinine 1.1 1.2 (0.8-1.5) MG/DL Glucose 380 H 299 H (75-110) MG/DL Calcium 8.8 8.9 (8.4-10.2) MG/DL Intake and Output 01/02/17 01/03/17 01/03/17 22:59 06:59 14:59 Intake Total 960 / 960 260 / 260 Output Total 300 / 300 Balance 660 / 660 260 / 260 Intake: IV 500 / 500 Xylocaine-Mpf 1% Vial 10 400 / 400 mg KCl 10 Meq In Normal Saline 100 ml @ 100 mls/ hr IV .Q1H CHANG Rx#: [id number] POTASSIUM CHLORIDE PREMIX 100 / 100 10 meq In 100 ml @ 100 mls/hr IV Q1H CHANG Rx#: [id number] Oral 460 / 460 260 / 260 Output: Urine 300 / 300 Other: Urine Appearance Clear Urine Color Yellow Yellow # Voids 1 Weight 64 kg 63.8 kg Patient Weight 01/04/17 06:59 Weight 63.8 kg - Imaging and Cardiology EKG results: other (diffuse nonspecific ST-T abnormality with prolonged QT prominent U wave probably related to profound hypokalemia) Imaging & Cardiology Narrative: 01/03/17 13:14 Chest x-ray does not show any CHF - EKG Interpretation EKG: sinus rhythm Assessment and Plan - Assessment and Plan (1) Premature ventricular contractions Current visit: Yes Status: Acute (2) Ventricular bigeminy seen on surveillance monitor Current visit: Yes Status: Acute (3) Orthostatic hypotension Current visit: Yes Status: Acute (4) Orthostatic hypotension dysautonomic syndrome Current visit: Yes Status: Acute (5) Falls frequently Current visit: Yes Status: Acute (6) S/P CABG x 4 Current visit: Yes Status: Acute (7) Hypokalemia Current visit: Yes Status: Acute (8) Rib fracture Current visit: Yes Status: Acute Hospital Course Summary Disclaimer: The visit summary below is not to be considered part of the above Progress Note. 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 - no longer on antiepileptic (was on Vimpat) Type 2 DM, A1c was 9.3% on 12/14/16 Diabetic peripheral neuropathy Hypothyroidism - TSH was 0.96 on 12/14/16 Dyslipidemia Prostate cancer - S/P radiation around 2006 Chronic anemia Discontinue nitroglycerin paste due to orthostasis and lack of angina Agree with your management owing serial EKGs and troponins, so far no evidence of acute cardiac syndrome EKG abnormality appears to be related to hypokalemia Discontinue spironolactone and I'm going to hold lisinopril due to orthostasis I recommend taking and treating only standing blood pressure, to prevent orthostatic hypotension and and hopefully prevent falls If orthostasis continues consider addition of Florinef 0.1 mg daily to twice a day Bilateral lower extremity pressure stockings Thank you very much for your consultation we'll follow patient along with you! 01/03/17 13:14 Sepsis Assessment - Evaluation Sepsis screening result: No Definite Risk
[2017-01-03] MEDS ORDERED: GLIMEPIRIDE 4 MG TABLET PO SCH (17:00)
[2017-01-03] MEDS: INSULIN GLARGINE 100unit/ml INJECTION SQ SCH (17:50)
[2017-01-03] MEDS: ONDANSETRON 4 MG/2 ML INJECTION IVP PRN (17:50)
[2017-01-03] MEDS: OMEPRAZOLE 20 MG CAPSULE PO SCH (17:51)
[2017-01-03] MEDS: MAGNESIUM SULFATE 1gm PREMIX 1 GM/100 ML BAG IV SCH ×2 (18:24→20:01)
[2017-01-03] MEDS: ACETAMINOPHEN 325 MG TABLET PO PRN (20:24)
[2017-01-03] MEDS: PRAVASTATIN 40 MG TABLET PO SCH (20:24)
[2017-01-04] MEDS: ACETAMINOPHEN 325 MG TABLET PO PRN (04:24)
[2017-01-04] MEDS: OMEPRAZOLE 20 MG CAPSULE PO SCH ×2 (05:54→16:50)
[2017-01-04] MEDS: LEVOTHYROXINE 50 MCG TABLET PO SCH (05:55)
--- NOTE | 2017-01-04 08:32 | Progress Note ---
<Cherry Johnson D - Last Filed: 01/04/17 08:29> Subjective: Les was sleeping but woke up easily. He wasn't very talkative this morning. He complains of feeling cold and pulled his covers up over his head. His only pain is where his rib is fractured. He still feels weak all over. He hasn't had a good appetite but denies vomiting. He denies feeling short of breath or having chest pain. BG was low this am at 66 - he took juice but refused zoey cracker + PB; nonetheless his BG came up to 96. Objective Vital signs: Temperature 97.5 F 01/04/17 03:31 Pulse Rate 62 01/04/17 07:40 Respiratory Rate 20 01/04/17 07:40 Blood Pressure 146/65 H 01/04/17 07:40 Pulse Oximetry 98 01/04/17 07:40 Rhythm: Normal Sinus Rhythm Height/Weight/BMI: Height 1.73 m Weight 65 kg Body Mass Index 21.4 - Constitutional Present: no acute distress, well nourished, well developed, thin - Routine HEENT Exam Head: Present: normocephalic - Routine Respiratory Exam Present: CTA bilaterally, diminished air movement - Routine Cardiovascular Exam Present: RRR, S1, S2, murmur (very soft systolic murmur) - Routine Abdominal Exam Present: soft, normoactive bowel sounds, non distended - Routine Extremities Exam Present: no edema, pulses intact - Routine Musculoskeletal Exam Musculoskeletal: Present: no joint swelling - Routine Skin Exam Present: intact, dry, pallor, warm - Routine Neurological Exam Present: alert, normal speech - Routine Psychiatric Exam Present: normal thought process Results - Labs CBC & Chem 7: 01/04/17 03:53 01/04/17 03:53 Assessment and Plan (1) Hypokalemia Current visit: Yes Status: Acute Resuscitation Status: Full Code Assessment and Plan: SUMMARY - This is a 81 YO male that was admitted yesterday due to recurrent falls at home, dizzy spells, near syncope. Pt SBP was very high in the ED, and he was given Nitropaste. ED doctor reported pt HR was in the 20's at one time. Per Cherry pt went onto bigemi pattern with pulse deficit of 40/min - EKG showed HR of 80 every other beat was not felt. Pt is type II DM and states his HbA1c was 14% in the recent past but the last one was 9% Rib X rays ".............................. Impression: Nondisplaced lateral left 10th rib fracture with no pneumothorax or pleural effusion identified. ..........................................." Diagnosis 1) S/P fall in a pt with marked hypertension in the ED and hypokalemia - with 10th rib fracture. Pt has extensive cardiac history including CABG and stents x 4. A) Hypertension and Hypokalemia and hypomagnesemia - could be due to hyperaldosteronism - Aldosterone and renin levels are pending. - Considered Aldactone 50mg/day (01/03), but Dr. Wilkerson recommended against this and lisinopril due to orthostasis. - Per Dr. Wilkerson, treat only standing BP to prevent orthostatic hypotension (and falls) - consider Florinef 0.1 mg BID - BP much improved, most lately running 130s/60s - Hypokalemia has improved to 3.5; mg is also better at 2.1 - continue oral replacement B) H/O CAD; bradycardia - No evidence of acute CO - TnI x 2 negative x3 - HR stable in the 60s. EKG abnormality on admit was most likely related to hypokalemia. 2) Leukocytosis, left shift - WBC increased to 11.7 and bands up to 9% - No UTI. CXR done today was personally reviewed ?LLL infiltrate? (Though pt has no respiratory symptoms) 3) Type II DM with poor control per pt, last HbA1C of 9.3% (12/14/16) with macrovascular disease (CAD) and microvascular disease (neuropathy) - Continue Sliding scale. Repeat HbA1c was 8.3%. - Lantus was started yesterday (given at 1750) - had hypoglycemia this am. Will discuss timing of Lantus with attending. - Resume pravastatin 80mg/day 4) H.O Partial seizures - Previously on Vimpat. No symptoms to suggest temporal lobe epilepsy at this time. 5) Hypothyroidism - TSH is normal. 6) H.O Prostate cancer. - H.O LUTS - with urinary retention - cath if needed. PREVENTION DVT - LOVENOX PUD - OMEPRAZOLE. Code status - FULL CODE Sepsis Assessment - Evaluation Sepsis screening result: No Definite Risk Hospital Course Summary Disclaimer: The visit summary below is not to be considered part of the above Progress Note. 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 - no longer on antiepileptic (was on Vimpat) Type 2 DM, A1c was 9.3% on 12/14/16 Diabetic peripheral neuropathy Hypothyroidism - TSH was 0.96 on 12/14/16 Dyslipidemia Prostate cancer - S/P radiation around 2006 Chronic anemia Discontinue nitroglycerin paste due to orthostasis and lack of angina Agree with your management owing serial EKGs and troponins, so far no evidence of acute cardiac syndrome EKG abnormality appears to be related to hypokalemia Discontinue spironolactone and I'm going to hold lisinopril due to orthostasis I recommend taking and treating only standing blood pressure, to prevent orthostatic hypotension and and hopefully prevent falls If orthostasis continues consider addition of Florinef 0.1 mg daily to twice a day Bilateral lower extremity pressure stockings Thank you very much for your consultation we'll follow patient along with you! 01/03/17 13:14 <Ian Pennington - Last Filed: 01/04/17 15:28> Objective Vital signs: Temperature 98.7 F 01/04/17 11:00 Pulse Rate 70 01/04/17 11:00 Respiratory Rate 16 01/04/17 11:00 Blood Pressure 145/58 H 01/04/17 11:00 Pulse Oximetry 97 01/04/17 11:00 Height/Weight/BMI: Height 5 ft 8 in Weight 64.8 kg Body Mass Index 21.4 Results - Labs CBC & Chem 7: 01/04/17 03:53 01/04/17 03:53 Assessment and Plan (1) Hypokalemia Current visit: Yes Status: Acute Assessment and Plan: Above pt seen and examined. Pt oral intake has dropped precipitously. This AM his BS was low and pt was given D50%. He is increasingly agitated and upset with his family member(s). Overall looks very depressed. States pain on the L side of his chest is much worse. WBC count is up with a L shift. AM CXR did not show an infiltrate. PT NC/AT Mucosas a bit dry Neck supple Chest - Decreased air entry on the L base Abd - soft NT/NT Ext - No edema Labs - WBC up, L shift. A/P - ? of LLL atelectasis with developing PNA ? - Recheck CXR PA and Lateral - Duonebs - Pain control - Recheck CBC at 18:00 H - Diminished oral intake - Reduce insulin to avoid hypoglycemia. Family requested competency evaluation due to pt increased agitation and refusal to eat. - Time spent with patient 25 - 35 minutes Hospital Course Summary Disclaimer: The visit summary below is not to be considered part of the above Progress Note.
[2017-01-04] MEDS ORDERED: PIOGLITAZONE 30 MG TABLET PO SCH (09:00)
[2017-01-04] MEDS: ASPIRIN 81 MG CHEWABLE TABLET PO SCH (09:23)
[2017-01-04] MEDS: DULOXETINE 30 MG CAPSULE PO SCH (09:23)
[2017-01-04] MEDS: ENOXAPARIN 40 MG/0.4 ML INJECTION SQ SCH (09:23)
--- NOTE | 2017-01-04 09:34 | XRay Report ---
INDICATION: F/U on Rib Fracture (R/O Atelectasis) PROCEDURE: CHEST 2-VIEWS UPRIGHT (PA & LAT) Encounter: Initial COMPARISON: January 02, 2017 FINDINGS: The lungs are clear without evidence of focal abnormal airspace opacity. There is no pleural effusion or pneumothorax. Poststernotomy changes are present. The heart size, mediastinal contours and pulmonary vascularity are within normal limits. The known left rib fracture is not visualized on this exam. IMPRESSION: No acute cardiopulmonary disease. .
[2017-01-04] MEDS: INSULIN GLARGINE 100unit/ml INJECTION SQ SCH (09:41)
[2017-01-04] MEDS: DEXTROSE 50% SYRINGE 50ml (1 AMP) IVP PRN (14:59)
--- NOTE | 2017-01-04 15:56 | XRay Report ---
INDICATION: Rib fracture-leukocytosis - L shift PROCEDURE: CHEST 2-VIEWS UPRIGHT (PA & LAT) Encounter: Initial COMPARISON: January 04, 2017 at zero 654 FINDINGS: Lungs are stable and grossly clear. No pleural effusion or pneumothorax. No visible change from the recent comparison study. Cardiomediastinal contours and pulmonary vascularity are unchanged. Impression: Stable chest. .
[2017-01-04] MEDS: HYDROCODONE/APAP 5mg/325mg TABLET PO SCH ×3 (16:35→23:30)
--- NOTE | 2017-01-04 18:50 | Cardiology Progress Note ---
Subjective Principal diagnosis: falls, hypokalemia Interval history: pt is lying in bed, appears comfortable. son in law is in the room. pt has been up to go to the bathroom only; states he feels slightly dizzy when standing up. denies SOA, CP, or chest pressure, lightheadedness, dizziness while lying. complains of pain in his left lower rib which is reproducible to palpation. pts potassium has increased to 3.5. the son in law states that the family decided they want to leave tomorrow, saying that whatever treatment that is done here in the hospital, that they can do at home. pts family is worried and feel that spending more time in the hospital is not beneficial; states that the pt has been in and out of the hospital multiple times and due to financial issues they don't feel he would benefit. Exam Vital signs: Temperature 96.2 F L 01/04/17 15:00 Pulse Rate 73 01/04/17 16:04 Respiratory Rate 16 01/04/17 15:00 Blood Pressure 145/70 H 01/04/17 15:00 Pulse Oximetry 96 01/04/17 15:00 - Constitutional no acute distress Comments: chronically ill, elderly, quiet - Routine HEENT Exam Head: Present: normocephalic, atraumatic Eye: Present: EOMI, PERRL ENT: Present: mucous membranes moist - Routine Neck Exam Present: supple. Absent: JVD, carotid bruit - Routine Chest/Breast/Axilla Exam Chest wall: Present: tenderness (left lower ribs- reproducible to palpation) - Routine Respiratory Exam Present: CTA bilaterally. Absent: accessory muscle use, dyspnea, decreased breath sounds, respiratory distress - Routine Cardiovascular Exam Present: RRR - Routine Abdominal Exam Present: soft, non tender - Routine Extremities Exam Present: no edema, pulses intact (diminished B). Absent: cyanosis - Routine Skin Exam Present: intact, warm. Absent: cyanosis, erythema - Routine Neurological Exam Present: alert, oriented X3, CN II-XII intact, normal speech. Absent: motor deficit, facial asymmetry - Routine Psychiatric Exam Present: normal affect Assessment and Plan - Assessment and Plan (1) Premature ventricular contractions Current visit: Yes Status: Acute Related to hypokalemia, resolved. It appears that was the reason for the slow palpable pulse rate, , no significant bradycardia or recurrent PVCs on prolonged cardiac monitoring in the hospital. (2) Ventricular bigeminy seen on air sampling and monitoring Current visit: Yes Status: Acute (3) Orthostatic hypotension Current visit: Yes Status: Acute (4) Orthostatic hypotension dysautonomic syndrome Current visit: Yes Status: Acute (5) Falls frequently Current visit: Yes Status: Acute (6) S/P CABG x 4 Current visit: Yes Status: Acute (7) Hypokalemia Problem details: Appears related to poor oral intake chronically. He does explain the EKG abnormality. he remains asymptomatic without angina or CHF. Current visit: Yes Status: Acute (8) Rib fracture Current visit: Yes Status: Acute - Assessment and Plan educated the patient, son in law, and daughter (was on the phone) about how yesterday we d/c nitro, spironolactone, and lisinopril and that it may take a few days to see results of that. educated on the risks of taking him out AMA. educated on using 15 P for the miguel hose. after educating, the family would like the father to be out of the hospital by monday, explained that is ultimately up to the hospitalist and what they decide. will continue to monitor BP, get pt ambulatory and assess orthostatic hypotension. Hospital Course Summary Disclaimer: The visit summary below is not to be considered part of the above Progress Note. Hospital Course: This appears stable continue present treatment 01/02/17 ASSESSMENT Severe hypokalemia with bradycardia and bigeminy HTN with markedly elevated pressures and documented a chronic orthostatic hypotension and falls CAD History of syncope Possible history of partial complex seizures - no longer on antiepileptic (was on Vimpat) Type 2 DM, A1c was 9.3% on 12/14/16 Diabetic peripheral neuropathy Hypothyroidism - TSH was 0.96 on 12/14/16 Dyslipidemia Prostate cancer - S/P radiation around 2006 Chronic anemia Discontinue nitroglycerin paste due to orthostasis and lack of angina Agree with your management owing serial EKGs and troponins, so far no evidence of acute cardiac syndrome EKG abnormality appears to be related to hypokalemia Discontinue spironolactone and I'm going to hold lisinopril due to orthostasis I recommend taking and treating only standing blood pressure, to prevent orthostatic hypotension and and hopefully prevent falls If orthostasis continues consider addition of Florinef 0.1 mg daily to twice a day Bilateral lower extremity pressure stockings Thank you very much for your consultation we'll follow patient along with you! 01/03/17 13:14 01/07/17 13:45
[2017-01-04] MEDS: PRAVASTATIN 40 MG TABLET PO SCH (20:39)
--- NOTE | 2017-01-04 21:59 | Neuropsychiatric Consult ---
[facility] Date: 01/04/17 Reason for Consultation: Depression Start Time: 18:00 Stop Time: 18:30 History of Present Illness: HPI: 81 Y/O CM admitted for increasing falls. Psychiatry was consulted as family was concerned about depression. On face to face the pt is pleasant but confused. He is oriented x 2 but is not sure of the month. He is some what tangential and is a poor historian. He falls asleep at times during the interview. Pt states he does feel depressed but denies any S/i. STRESSORS: Pt states his health issues and recent falls are a stressor and he is unable to be as active as he has in the past. PSYCH ROS; Pt reports feeling depressed with issues falling asleep, decreased energy and motivation, some anhedonia at times. and some morbid thoughts but denies any S/I. He denies any anxiety, elvis, or psychosis. He does appear to have some possible delirium as he is slightly confused. PAST PSYCH: Pt is currently on Cymbalta which the family states is more for his neuropathy. He denies ever seeing a psychiatrist and has not past psych hx. [facility] Patient Stated Medical History Cataracts Yes Coronary Artery Disease Yes Hypertension Yes Diabetes Mellitus Type 2 Yes Hx Urinary Tract Infection Yes Surgical History: CABG 4 in 2010. Previous coronary stents 2 at proceeded his CABG no previous SD - Social History Smoking status: Never smoker Review of Systems - Cardiovascular Vascular: Present: see HPI - Genitourinary Genitourinary: Present: as per HPI - Psychiatric Psychiatric: Present: abnormal sleep pattern, anhedonia, depression, difficulty concentrating Mental Status Exam Vitals: Last Vital Signs Temp 98.7 F 01/04/17 20:00 Pulse 70 01/04/17 20:00 Resp 14 01/04/17 20:00 BP 127/64 01/04/17 20:00 Pulse Ox 95 01/04/17 20:00 Height: 1.73 m Weight: 64.8 kg - Mental Status Exam Muscle Strength/Tone: Normal Dressing: Casual Grooming: Fair Attitude: Cooperative Motor Activity: Retardation Eye Contact: Fair Speech: Slowed Volume: Soft Rhythm: Appropriate Rhythm Orientation: Disoriented to time Mood: Depressed Affect: Sad Rate of Thoughts: Delayed Thought Organization: [place] Associations: [employer] Abstract Reasoning: Poor abstract reasoning Thought Content: Normal Perception/Psychotic: Perception Normal Fund of Knowledge: Poor fund of knowledge Memory: Poor-immediate, Poor-recent Suicidal Ideation: None Homicidal Ideation: None Insight: Fair Judgement: Fair Impulse Control: Fair - Laboratory Result Diagrams: 01/04/17 18:38 01/04/17 18:38 Laboratory Results - last 24 hr 01/04/17 01/04/17 01/04/17 03:53 03:53 03:53 WBC 11.7 H RBC 3.28 L Hgb 9.4 L Hct 30.0 L MCV 91.5 MCH 28.7 MCHC 31.3 RDW Std Deviation 51.5 H Plt Count 149 MPV 10.7 Immature Gran % (Auto) Not performed Neut % (Auto) Not performed Lymph % (Auto) Not performed [place] % (Auto) Not performed Eos % (Auto) Not performed Baso % (Auto) Not performed Neut # Not performed Lymph # Not performed [place] # Not performed Eos # Not performed Baso # Not performed Abs Immat Gran (auto) Not performed Neutrophils % (Manual) 83.0 H Band Neutrophils % 9.0 H Lymphocytes % (Manual) 4.0 L Monocytes % (Manual) 4.0 Neutrophils # (Manual) 9.7 H Band Neutrophils # 1.1 Lymphocytes # (Manual) 0.5 L Monocytes # (Manual) 0.5 RBC Morph Comment Normal Turbidity < 20 Sodium 141 Potassium 3.5 L D Chloride 96 L Carbon Dioxide 37 H Anion Gap 8 BUN 24.0 H Creatinine 1.0 GFR Calculation 72 BUN/Creatinine Ratio 24 Glucose 81 Glucometer Hemoglobin A1c 8.3 H Calculated Osmolality 274 Calcium 8.8 Magnesium 2.1 D Total Bilirubin 0.90 Icterus Index < 2 AST 20 ALT 27 Alkaline Phosphatase 71 Total Protein 6.2 L Albumin 3.1 L Globulin 3.1 Albumin/Globulin Ratio 1.0 L Prealbumin 11.9 L Vitamin B12 > 1000 H Specimen Hemolysis < 15 01/04/17 01/04/17 01/04/17 06:17 06:38 07:52 WBC RBC Hgb Hct MCV MCH MCHC RDW Std Deviation Plt Count MPV Immature Gran % (Auto) Neut % (Auto) Lymph % (Auto) [place] % (Auto) Eos % (Auto) Baso % (Auto) Neut # Lymph # [place] # Eos # Baso # Abs Immat Gran (auto) Neutrophils % (Manual) Band Neutrophils % Lymphocytes % (Manual) Monocytes % (Manual) Neutrophils # (Manual) Band Neutrophils # Lymphocytes # (Manual) Monocytes # (Manual) RBC Morph Comment Turbidity Sodium Potassium Chloride Carbon Dioxide Anion Gap BUN Creatinine GFR Calculation BUN/Creatinine Ratio Glucose Glucometer 66 66 96 Hemoglobin A1c Calculated Osmolality Calcium Magnesium Total Bilirubin Icterus Index AST ALT Alkaline Phosphatase Total Protein Albumin Globulin Albumin/Globulin Ratio Prealbumin Vitamin B12 Specimen Hemolysis 01/04/17 01/04/17 01/04/17 10:19 14:07 15:18 WBC RBC Hgb Hct MCV MCH MCHC RDW Std Deviation Plt Count MPV Immature Gran % (Auto) Neut % (Auto) Lymph % (Auto) [place] % (Auto) Eos % (Auto) Baso % (Auto) Neut # Lymph # [place] # Eos # Baso # Abs Immat Gran (auto) Neutrophils % (Manual) Band Neutrophils % Lymphocytes % (Manual) Monocytes % (Manual) Neutrophils # (Manual) Band Neutrophils # Lymphocytes # (Manual) Monocytes # (Manual) RBC Morph Comment Turbidity Sodium Potassium Chloride Carbon Dioxide Anion Gap BUN Creatinine GFR Calculation BUN/Creatinine Ratio Glucose Glucometer 95 57 103 Hemoglobin A1c Calculated Osmolality Calcium Magnesium Total Bilirubin Icterus Index AST ALT Alkaline Phosphatase Total Protein Albumin Globulin Albumin/Globulin Ratio Prealbumin Vitamin B12 Specimen Hemolysis 01/04/17 01/04/17 01/04/17 18:38 18:38 20:48 WBC 12.7 H RBC 3.20 L Hgb 9.3 L Hct 29.4 L MCV 91.9 MCH 29.1 MCHC 31.6 RDW Std Deviation 53.1 H Plt Count 142 MPV 10.3 Immature Gran % (Auto) Not performed Neut % (Auto) Not performed Lymph % (Auto) Not performed [place] % (Auto) Not performed Eos % (Auto) Not performed Baso % (Auto) Not performed Neut # Not performed Lymph # Not performed [place] # Not performed Eos # Not performed Baso # Not performed Abs Immat Gran (auto) Not performed Neutrophils % (Manual) 82.0 H Band Neutrophils % 8.0 H Lymphocytes % (Manual) 2.0 L Monocytes % (Manual) 8.0 Neutrophils # (Manual) 10.4 H Band Neutrophils # 1.0 Lymphocytes # (Manual) 0.3 L Monocytes # (Manual) 1.0 H RBC Morph Comment Normal Turbidity < 20 Sodium 139 Potassium 5.0 D Chloride 98 Carbon Dioxide 32 H Anion Gap 9 BUN 25.0 H Creatinine 1.0 GFR Calculation 72 BUN/Creatinine Ratio 25 Glucose 117 H Glucometer 86 Hemoglobin A1c Calculated Osmolality 273 Calcium 8.7 Magnesium Total Bilirubin Icterus Index < 2 AST ALT Alkaline Phosphatase Total Protein Albumin Globulin Albumin/Globulin Ratio Prealbumin Vitamin B12 Specimen Hemolysis < 15 Assessment and Plan (1) Major depressive disorder Qualifiers: Major depression recurrence: single episode Major depression episode severity: moderate Current visit: Yes Status: Acute Continue medical management. Discussed possibly starting Remeron to target mood , sleep and help with appetite. We discussed taking care of medical issues and seeing if confusion improves and then possibly starting Remeron either before discharge or as an outpatient. Family is in agreement with this plan. (2) Delirium Problem details: Suspect Current visit: Yes Status: Acute
[2017-01-05] MEDS: HYDROCODONE/APAP 5mg/325mg TABLET PO SCH ×3 (03:55→11:30)
[2017-01-05] MEDS: DEXTROSE 50% SYRINGE 50ml (1 AMP) IVP PRN ×3 (05:52→20:00)
[2017-01-05] MEDS: LEVOTHYROXINE 50 MCG TABLET PO SCH (06:43)
[2017-01-05] MEDS: OMEPRAZOLE 20 MG CAPSULE PO SCH ×2 (06:43→17:28)
[2017-01-05] MEDS ORDERED: D5W 1,000 ML IV SCH (06:45)
[2017-01-05] MEDS: DULOXETINE 30 MG CAPSULE PO SCH (08:24)
[2017-01-05] MEDS: ENOXAPARIN 40 MG/0.4 ML INJECTION SQ SCH (08:24)
[2017-01-05] MEDS: ASPIRIN 81 MG CHEWABLE TABLET PO SCH (08:25)
[2017-01-05] MEDS ORDERED: POLYETHYL GLYCOL 3350 17gm PACKET PO SCH (09:00)
--- NOTE | 2017-01-05 10:24 | Cardiology Progress Note ---
Subjective Principal diagnosis: falls, hypokalemia Interval history: pt seen at 0910. pt is lying in bed, appears comfortable. pt states he doesn't feel any better, still feels dizzy. pt seems confused and doesn't remember much. he states he has not been eating d/t decreased appetite; he does not remember what he ate last, he does say that he has been drinking water. he has not been up to walk. denies CP, chest pressure, lightheadedness, SOA. Exam Vital signs: Temperature 98.5 F 01/05/17 07:54 Pulse Rate 61 01/05/17 07:54 Respiratory Rate 14 01/05/17 07:54 Blood Pressure 165/71 H 01/05/17 07:54 Pulse Oximetry 98 01/05/17 07:54 Narrative: potassium lab last night went from 5 to 5.3, order to hold potassium. supine BP reviewed, would like orthostatic BP tele strip was normal sinus rhythm - Constitutional no acute distress, cooperative - Routine HEENT Exam Head: Present: normocephalic, atraumatic Eye: Present: EOMI, PERRL ENT: Present: mucous membranes moist - Routine Neck Exam Absent: JVD, carotid bruit - Routine Chest/Breast/Axilla Exam Chest wall: Present: tenderness (L lower ribs) - Routine Respiratory Exam Present: CTA bilaterally. Absent: accessory muscle use, decreased breath sounds , respiratory distress - Routine Cardiovascular Exam Present: RRR, murmur (I/ Sys murmur heard at LLSB) - Routine Abdominal Exam Present: soft, non tender - Routine Extremities Exam Present: pulses intact. Absent: cyanosis - Routine Skin Exam Present: intact, warm. Absent: cyanosis - Routine Neurological Exam Present: alert, normal speech. Absent: motor deficit, facial asymmetry (poor historian, falls asleep while talking to him) - Routine Psychiatric Exam Present: cooperative Assessment and Plan - Assessment and Plan (1) Premature ventricular contractions Current visit: Yes Status: Acute (2) Ventricular bigeminy seen on school lunch monitor Current visit: Yes Status: Acute (3) Orthostatic hypotension Current visit: Yes Status: Acute * ordered orthostatic BP, will re-assess in evening. * pt is wearing pressure stockings * informed pt to find a local ingredient scaler helper in [place] to f/u with. (4) Orthostatic hypotension dysautonomic syndrome Current visit: Yes Status: Acute (5) Falls frequently Current visit: Yes Status: Acute (6) S/P CABG x 4 Current visit: Yes Status: Acute (7) Hypokalemia Current visit: Yes Status: Acute * held potassium, informed hospitalist * hospitalist will continue further care for hypokalemia (8) Rib fracture Current visit: Yes Status: Acute Hospital Course Summary Disclaimer: The visit summary below is not to be considered part of the above Progress Note. 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 - no longer on antiepileptic (was on Vimpat) Type 2 DM, A1c was 9.3% on 12/14/16 Diabetic peripheral neuropathy Hypothyroidism - TSH was 0.96 on 12/14/16 Dyslipidemia Prostate cancer - S/P radiation around 2006 Chronic anemia Discontinue nitroglycerin paste due to orthostasis and lack of angina Agree with your management owing serial EKGs and troponins, so far no evidence of acute cardiac syndrome EKG abnormality appears to be related to hypokalemia Discontinue spironolactone and I'm going to hold lisinopril due to orthostasis I recommend taking and treating only standing blood pressure, to prevent orthostatic hypotension and and hopefully prevent falls If orthostasis continues consider addition of Florinef 0.1 mg daily to twice a day Bilateral lower extremity pressure stockings Thank you very much for your consultation we'll follow patient along with you! 01/03/17 13:14
[2017-01-05] MEDS ORDERED: CHOLESTYRAMINE LIGHT 4 G PACKET PO PRN (13:14)
[2017-01-05] MEDS: MetroNIDAZOLE 500 MG TABLET PO SCH ×2 (14:16→17:28)
--- NOTE | 2017-01-05 14:33 | Progress Note ---
Subjective: F/U: Hypokalemia, orthostasis, Type II DM More listless and tired. Hard to get up and be mobile; about all therapy could do was have patient set on side of bed. Oral drive decreased. Sugars decreased. Breathing well. Did have loose, liquid stool. Objective Vital signs: Temperature 98.3 F 01/05/17 11:47 Pulse Rate 68 01/05/17 11:47 Respiratory Rate 20 01/05/17 11:47 Blood Pressure 136/67 01/05/17 11:47 Pulse Oximetry 96 01/05/17 11:47 Rhythm: Normal Sinus Rhythm Height/Weight/BMI: Height 1.73 m Weight 64.7 kg Body Mass Index 21.4 - Constitutional Present: no acute distress, well nourished, well developed, other (Appears weak and tired. ) - Routine HEENT Exam Head: Present: normocephalic, atraumatic Eye: Present: EOMI, PERRL ENT: Present: mucous membranes moist - Routine Respiratory Exam Present: decreased breath sounds. Absent: respiratory distress, rhonchi, wheezes, crackles - Routine Cardiovascular Exam Present: RRR - Routine Abdominal Exam Present: soft, normoactive bowel sounds, non distended, non tender - Routine Extremities Exam Absent: cyanosis, clubbing - Routine Skin Exam Present: intact, dry, warm - Routine Neurological Exam Present: CN II-XII intact, moving all extremities, vision grossly intact, hearing grossly intact - Routine Psychiatric Exam Present: depressed. Absent: anxious, agitated Results - Labs CBC & Chem 7: 01/04/17 18:38 01/04/17 22:45 Assessment and Plan (1) Hypokalemia Current visit: Yes Status: Acute DVT Prophylaxis: SCD's Resuscitation Status: Full Code Assessment and Plan: ASSESSMENT Severe hypokalemia with bradycardia and bigeminy -improved. 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 Routine Miralax stopped. Will stop D5W due to concern to potentially develop hyponatremia. Start D10NS at 50cc/hr. Oral potassium stopped as patient overcorrected. Will need to continue to monitor potassium. Encourage increase in activities - today, only able to sit up at side of bed with therapy. Lantus stopped yesterday evening due to low sugars. Will stop ISS due to concern for hypoglycemia with patient's low oral intake. Will start Miacalcin due to rib fracture. Stop routine [place] due to delirium. Encourage oral intake. Case discussed with Dr Wilkerson and CM. Time spent with patient care 25 minutes. - Time spent with patient 25 - 35 minutes Hospital Course Summary Disclaimer: The visit summary below is not to be considered part of the above Progress Note. 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 Consult Dr. Wilkerson regarding cardiac ectopy. Case discussed with him. NTG paste ordered per attending. Replace K IV + PO. Check Mg. Recheck K this evening. History of urine retention and recent UTI - check UA. Straight cath if retention of 500 mL. Uncontrolled DM - monitor postprandial sugars. Resume diabetic meds. SSI (pt had been on insulin in the past, but chart from [facility] indicated he refused it). Advanced directives: Daughter Emiele is medical DPOA; Full code but wouldn't want life prolonged if there is little chance of recovery - i.e. no feeding tube. Family is aware of wishes. PCP: Dr. Paz. 01/03/[address] [place] [address] Dr Wilkerson - he states pt is very orthostatic and recommends to stop Aldactone. Will proceed. Sliding scale coverage changed to intermediate dose. BS is above 200 consistently Will resume Glimepiride at 4mg - daily (Was on 8mg/day) Will resume Actos in the AM - Will be cautious with fluid retention. Discussed with family and home care scheduler (Silvio - son in law) - and probably pt will be better off with no Actos and Amaryl - will start Lantus and will check a nuclear emptying scan in 2 days. Pt likely has autonomic neuropathy with postural hypotension Cardiology Discontinue nitroglycerin paste due to orthostasis and lack of angina Agree with your management owing serial EKGs and troponins, so far no evidence of acute cardiac syndrome EKG abnormality appears to be related to hypokalemia Discontinue spironolactone and I'm going to hold lisinopril due to orthostasis I recommend taking and treating only standing blood pressure, to prevent orthostatic hypotension and and hopefully prevent falls If orthostasis continues consider addition of Florinef 0.1 mg daily to twice a day Bilateral lower extremity pressure stockings Thank you very much for your consultation we'll follow patient along with you ! 01/04/17 [place] Blood sugars very low with Lantus - Lantus stopped. Looks down and depressed. Psych consult initiated. Potassium elevated to 5.0, increased to 5.3 recheck later this evening. Oral potassium stopped. Psych Dx: MDD, single episode, moderate; delirium Discussed possibly starting Remeron to target mood, sleep and help with appetite. We discussed taking care of medical issues and seeing if confusion improves and then possibly starting Remeron either before discharge or as an outpatient. Family is in agreement with this plan. 01/05/17 [place] Blood sugars still low-oral drive variable. Had loose stool-C diff positive. WBC elevated. Start metronidazole 500mg TID to treat C diff; Questran as needed for loose stools. Routine Miralax stopped. Will stop D5W due to concern to potentially develop hyponatremia. Start D10NS at 50cc/hr. Oral potassium stopped as patient overcorrected. Will need to continue to monitor potassium. Encourage increase in activities - today, only able to sit up at side of bed with therapy. Lantus stopped yesterday evening due to low sugars. Will stop ISS due to concern for hypoglycemia with patient's low oral intake. Will start Miacalcin due to rib fracture. Stop routine [place] due to delirium. Encourage oral intake.
[2017-01-05] MEDS: CALCITONIN NASAL SPRAY 3.7ml NS SCH (15:42)
[2017-01-05] MEDS: SODIUM CHLORIDE CONC 154 MEQ in D10W 1,000 ML IV SCH (15:42)
[2017-01-05] MEDS ORDERED: DEXTROSE 50% INJECTION 50ml VIAL IV ONE (19:58)
[2017-01-05] MEDS: PRAVASTATIN 40 MG TABLET PO SCH (23:47)
[2017-01-06] MEDS: DEXTROSE 50% SYRINGE 50ml (1 AMP) IVP PRN ×3 (05:01→21:48)
[2017-01-06] MEDS: OMEPRAZOLE 20 MG CAPSULE PO SCH ×2 (06:31→17:35)
[2017-01-06] MEDS: LEVOTHYROXINE 50 MCG TABLET PO SCH (06:31)
[2017-01-06] MEDS ORDERED: D5-1/2NS 1,000 ML IV SCH (07:00)
[2017-01-06] MEDS: ASPIRIN 81 MG CHEWABLE TABLET PO SCH (08:12)
[2017-01-06] MEDS: DULOXETINE 30 MG CAPSULE PO SCH (08:12)
[2017-01-06] MEDS: ENOXAPARIN 40 MG/0.4 ML INJECTION SQ SCH (08:12)
[2017-01-06] MEDS: MetroNIDAZOLE 500 MG TABLET PO SCH ×3 (08:12→17:11)
[2017-01-06] MEDS: CALCITONIN NASAL SPRAY 3.7ml NS SCH (08:13)
[2017-01-06] MEDS: SODIUM CHLORIDE CONC 154 MEQ in D10W 1,000 ML IV SCH ×3 (10:19→23:03)
--- NOTE | 2017-01-06 12:11 | Progress Note ---
Subjective: F/U: Hypokalemia, orthostasis, Type II DM Resting in bed this morning. Nursing reports was able to walk to bathroom with assistance. Very worn out from that activity. Chest wall sore from rib fracture- pain with movements. Is more awake and alert, but still very weak and tired. Oral drive very minimal-not liking the food here. Breathing stable; mild cough at times. Urinating well. Stools less watery. No ab pain or cramping. Not reporting nausea. Objective Vital signs: Temperature 98.7 F 01/06/17 08:00 Pulse Rate 74 01/06/17 08:04 Respiratory Rate 20 01/06/17 08:00 Blood Pressure 120/62 01/06/17 08:04 Pulse Oximetry 98 01/06/17 08:04 Rhythm: Normal Sinus Rhythm Height/Weight/BMI: Height 1.73 m Weight 66.1 kg Body Mass Index 21.4 - Constitutional Present: no acute distress, well nourished, well developed, other (Appear very tired and weak. Answers guestions with short phrases. ) - Routine HEENT Exam Head: Present: normocephalic, atraumatic Eye: Present: EOMI, PERRL ENT: Present: mucous membranes moist - Routine Respiratory Exam Present: decreased breath sounds. Absent: respiratory distress, wheezes, crackles - Routine Cardiovascular Exam Present: RRR, no murmur - Routine Abdominal Exam Present: soft, normoactive bowel sounds, non distended, non tender - Routine Extremities Exam Present: no edema. Absent: cyanosis, clubbing - Routine Musculoskeletal Exam Musculoskeletal: Present: no clubbing or cyanosis - Routine Skin Exam Present: dry, warm - Routine Neurological Exam Present: alert, CN II-XII intact, vision grossly intact, hearing grossly intact - Routine Psychiatric Exam Absent: anxious, agitated Results - Labs CBC & Chem 7: 01/06/17 05:28 01/06/17 05:28 Assessment and Plan (1) Hypokalemia Current visit: Yes Status: Acute DVT Prophylaxis: Lovenox Resuscitation Status: Full Code Assessment and Plan: ASSESSMENT Severe hypokalemia with bradycardia and bigeminy -improved. 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 D10 NS increase to 100cc/hr. Blood sugar lowering agents stopped. Oral drive minimal. Okay for outside food. Start Marinol 5mg BID to stimulate appetite. Continue metronidazole 500mg TID to treat C diff; Questran as needed for loose stools. Stool frequency slowing, becoming less watery. Stress the importance of increasing activities. Continue PT/OT. Nursing to ambulate TID with assistance. Discussed with son about IRU - Not in favor of this. Does not feel Dr Ackerman would participate. Does not see anything that would be done there that could not be done at home. Pt's profound weakness a concern for us medically. Monitor lab. Case discussed with CM and patient's son. Time spent with patient care 35 minutes. - Time spent with patient greater than 35 minutes Hospital Course Summary Disclaimer: The visit summary below is not to be considered part of the above Progress Note. 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 Consult Dr. Wilkerson regarding cardiac ectopy. Case discussed with him. NTG paste ordered per attending. Replace K IV + PO. Check Mg. Recheck K this evening. History of urine retention and recent UTI - check UA. Straight cath if retention of 500 mL. Uncontrolled DM - monitor postprandial sugars. Resume diabetic meds. SSI (pt had been on insulin in the past, but chart from [facility] indicated he refused it). Advanced directives: Daughter Emilee is medical DPOA; Full code but wouldn't want life prolonged if there is little chance of recovery - i.e. no feeding tube. Family is aware of wishes. PCP: Dr. Paz. 01/03/17 [place] Discussed case with Dr Wilkerson - he states pt is very orthostatic and recommends to stop Aldactone. Will proceed. Sliding scale coverage changed to intermediate dose. BS is above 200 consistently Will resume Glimepiride at 4mg - daily (Was on 8mg/day) Will resume Actos in the AM - Will be cautious with fluid retention. Discussed with family and manager critical care (Silvio - son in law) - and probably pt will be better off with no Actos and Amaryl - will start Lantus and will check a nuclear emptying scan in 2 days. Pt likely has autonomic neuropathy with postural hypotension Cardiology Discontinue nitroglycerin paste due to orthostasis and lack of angina Agree with your management owing serial EKGs and troponins, so far no evidence of acute cardiac syndrome EKG abnormality appears to be related to hypokalemia Discontinue spironolactone and I'm going to hold lisinopril due to orthostasis I recommend taking and treating only standing blood pressure, to prevent orthostatic hypotension and and hopefully prevent falls If orthostasis continues consider addition of Florinef 0.1 mg daily to twice a day Bilateral lower extremity pressure stockings Thank you very much for your consultation we'll follow patient along with you ! 01/04/17 [place] Blood sugars very low with Lantus - Lantus stopped. Looks down and depressed. Psych consult initiated. Potassium elevated to 5.0, increased to 5.3 recheck later this evening. Oral potassium stopped. Psych Dx: MDD, single episode, moderate; delirium Discussed possibly starting Remeron to target mood, sleep and help with appetite. We discussed taking care of medical issues and seeing if confusion improves and then possibly starting Remeron either before discharge or as an outpatient. Family is in agreement with this plan. 01/05/17 [place] Blood sugars still low-oral drive variable. Had loose stool-C diff positive. WBC elevated. Start metronidazole 500mg TID to treat C diff; Questran as needed for loose stools. Routine Miralax stopped. Will stop D5W due to concern to potentially develop hyponatremia. Start D10NS at 50cc/hr. Oral potassium stopped as patient overcorrected. Will need to continue to monitor potassium. Encourage increase in activities - today, only able to sit up at side of bed with therapy. Lantus stopped yesterday evening due to low sugars. Will stop ISS due to concern for hypoglycemia with patient's low oral intake. Will start Miacalcin due to rib fracture. Stop routine [place] due to delirium. Encourage oral intake. 01/06/17 Blood sugars still low. D10 NS increase to 100cc/hr. Blood sugar lowering agents stopped. Oral drive minimal. Okay for outside food. Start Marinol 5mg BID to stimulate appetite. Continue metronidazole 500mg TID to treat C diff; Questran as needed for loose stools. Stool frequency slowing, becoming less watery. Stress the importance of increasing activities. Continue PT/OT. Nursing to ambulate TID with assistance. Discussed with son about IRU - Not in favor of this. Does not feel Dr Ackerman would participate. Does not see anything that would be done there that could not be done at home. Pt's profound weakness a concern for us medically.
[2017-01-06] MEDS: DRONABINOL 2.5 MG CAPSULE PO SCH ×2 (12:24→22:15)
--- NOTE | 2017-01-06 13:39 | Cardiology Progress Note ---
Subjective Principal diagnosis: falls, hypokalemia, orthostatic hypotension Interval history: pt seen at 1200. pt is lying in bed, appears comfortable and more alert today. pt has been up to the bathroom with assistance from nurse. he felt lightheaded laying in bed this morning for about 30 seconds. pt complains of left rib pain. pt still has decreased appetite. denies CP, chest pressure, syncope, SOA, dizziness. he states that he feels alright and wants to go home. Exam Vital signs: Temperature 98.7 F 01/06/17 08:00 Pulse Rate 72 01/06/17 12:00 Respiratory Rate 18 01/06/17 12:00 Blood Pressure 157/72 H 01/06/17 12:00 Pulse Oximetry 96 01/06/17 12:00 Narrative: all labs and imaging reviewed. tele strip shows normal sinus rhythm. orthostatic BP dropped 40 points from 160 to 140. - Constitutional no acute distress, cooperative - Routine HEENT Exam Head: Present: normocephalic, atraumatic Eye: Present: EOMI, PERRL ENT: Present: mucous membranes moist - Routine Neck Exam Present: supple. Absent: JVD, carotid bruit - Routine Chest/Breast/Axilla Exam Chest wall: Present: tenderness (Left lower rib) - Routine Respiratory Exam Present: decreased breath sounds (bases B), crackles (minimal at bases B). Absent: accessory muscle use, dyspnea, respiratory distress - Routine Cardiovascular Exam Present: RRR, murmur (I/IV sys murmur LLSB) - Routine Abdominal Exam Present: soft, non distended, non tender - Routine Extremities Exam Absent: cyanosis, clubbing, edema - Routine Skin Exam Present: intact, warm. Absent: cyanosis - Routine Neurological Exam Present: alert, CN II-XII intact, normal speech. Absent: motor deficit, facial asymmetry - Routine Psychiatric Exam Present: normal affect Assessment and Plan - Assessment and Plan (1) Premature ventricular contractions Current visit: Yes Status: Acute (2) Ventricular bigeminy seen on director of cardiac rehabilitation Current visit: Yes Status: Acute (3) Orthostatic hypotension Current visit: Yes Status: Acute (4) Orthostatic hypotension dysautonomic syndrome Current visit: Yes Status: Acute * ONLY treat standing BP to prevent orthostasis. * will be signing off on pt. (5) Falls frequently Current visit: Yes Status: Acute (6) S/P CABG x 4 Current visit: Yes Status: Acute follow up with transmission worker for management. (7) Hypokalemia Current visit: Yes Status: Acute potassium is under control currently, it will be managed by hospitalist. (8) Rib fracture Current visit: Yes Status: Acute (9) CAD (coronary artery disease) Current visit: Yes Status: Acute Hospital Course Summary Disclaimer: The visit summary below is not to be considered part of the above Progress Note. 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 Consult Dr. Wilkerson regarding cardiac ectopy. Case discussed with him. NTG paste ordered per attending. Replace K IV + PO. Check Mg. Recheck K this evening. History of urine retention and recent UTI - check UA. Straight cath if retention of 500 mL. Uncontrolled DM - monitor postprandial sugars. Resume diabetic meds. SSI (pt had been on insulin in the past, but chart from [facility] indicated he refused it). Advanced directives: Daughter Emilee is medical DPOA; Full code but wouldn't want life prolonged if there is little chance of recovery - i.e. no feeding tube. Family is aware of wishes. PCP: Dr. Paz. 01/03/[address] [place] [address] case with Dr Wilkerson - he states pt is very orthostatic and recommends to stop Aldactone. Will proceed. Sliding scale coverage changed to intermediate dose. BS is above 200 consistently Will resume Glimepiride at 4mg - daily (Was on 8mg/day) Will resume Actos in the AM - Will be cautious with fluid retention. Discussed with family and group care worker (Silvio - son in law) - and probably pt will be better off with no Actos and Amaryl - will start Lantus and will check a nuclear emptying scan in 2 days. Pt likely has autonomic neuropathy with postural hypotension Cardiology Discontinue nitroglycerin paste due to orthostasis and lack of angina Agree with your management owing serial EKGs and troponins, so far no evidence of acute cardiac syndrome EKG abnormality appears to be related to hypokalemia Discontinue spironolactone and I'm going to hold lisinopril due to orthostasis I recommend taking and treating only standing blood pressure, to prevent orthostatic hypotension and and hopefully prevent falls If orthostasis continues consider addition of Florinef 0.1 mg daily to twice a day Bilateral lower extremity pressure stockings Thank you very much for your consultation we'll follow patient along with you ! 01/04/17 [place] Blood sugars very low with Lantus - Lantus stopped. Looks down and depressed. Psych consult initiated. Potassium elevated to 5.0, increased to 5.3 recheck later this evening. Oral potassium stopped. Psych Dx: MDD, single episode, moderate; delirium Discussed possibly starting Remeron to target mood, sleep and help with appetite. We discussed taking care of medical issues and seeing if confusion improves and then possibly starting Remeron either before discharge or as an outpatient. Family is in agreement with this plan. 01/05/17 [place] Blood sugars still low-oral drive variable. Had loose stool-C diff positive. WBC elevated. Start metronidazole 500mg TID to treat C diff; Questran as needed for loose stools. Routine Miralax stopped. Will stop D5W due to concern to potentially develop hyponatremia. Start D10NS at 50cc/hr. Oral potassium stopped as patient overcorrected. Will need to continue to monitor potassium. Encourage increase in activities - today, only able to sit up at side of bed with therapy. Lantus stopped yesterday evening due to low sugars. Will stop ISS due to concern for hypoglycemia with patient's low oral intake. Will start Miacalcin due to rib fracture. Stop routine [place] due to delirium. Encourage oral intake. 01/06/17 Blood sugars still low. D10 NS increase to 100cc/hr. Blood sugar lowering agents stopped. Oral drive minimal. Okay for outside food. Start Marinol 5mg BID to stimulate appetite. Continue metronidazole 500mg TID to treat C diff; Questran as needed for loose stools. Stool frequency slowing, becoming less watery. Stress the importance of increasing activities. Continue PT/OT. Nursing to ambulate TID with assistance. Discussed with son about IRU - Not in favor of this. Does not feel Dr Ackerman would participate. Does not see anything that would be done there that could not be done at home. Pt's profound weakness a concern for us medically.
[2017-01-06] MEDS: PRAVASTATIN 40 MG TABLET PO SCH (22:16)
[2017-01-07] MEDS: OMEPRAZOLE 20 MG CAPSULE PO SCH ×2 (07:18→17:07)
[2017-01-07] MEDS: LEVOTHYROXINE 50 MCG TABLET PO SCH (07:18)
[2017-01-07] MEDS: DRONABINOL 2.5 MG CAPSULE PO SCH ×2 (08:53→20:02)
[2017-01-07] MEDS: DULOXETINE 30 MG CAPSULE PO SCH (08:53)
[2017-01-07] MEDS: MetroNIDAZOLE 500 MG TABLET PO SCH ×3 (08:53→17:07)
[2017-01-07] MEDS: ASPIRIN 81 MG CHEWABLE TABLET PO SCH (08:55)
[2017-01-07] MEDS: CALCITONIN NASAL SPRAY 3.7ml NS SCH (08:56)
[2017-01-07] MEDS: ENOXAPARIN 40 MG/0.4 ML INJECTION SQ SCH (09:36)
[2017-01-07] MEDS: SODIUM CHLORIDE CONC 154 MEQ in D10W 1,000 ML IV SCH ×2 (09:36→18:18)
--- NOTE | 2017-01-07 17:10 | Progress Note ---
Subjective: F/U: Hypokalemia, orthostasis, Type II DM Sitting up in chair this afternoon-appears restless. Report little appetite. Nursing charting patient eating about 50% of meals. No nausea or ab pain. Strength feels fair. Breathing well. Not reporting ab pain. Objective Vital signs: Temperature 96.1 F L 01/07/17 16:00 Pulse Rate 74 01/07/17 16:00 Respiratory Rate 18 01/07/17 12:30 Blood Pressure 149/73 H 01/07/17 16:00 Pulse Oximetry 95 01/07/17 16:00 Rhythm: Normal Sinus Rhythm Height/Weight/BMI: Height 1.73 m Weight 65.1 kg Body Mass Index 21.4 - Constitutional Present: well nourished, well developed, disheveled - Routine HEENT Exam Head: Present: normocephalic, atraumatic Eye: Present: EOMI, PERRL ENT: Present: mucous membranes moist - Routine Respiratory Exam Present: CTA bilaterally. Absent: respiratory distress, rhonchi, wheezes, crackles - Routine Cardiovascular Exam Present: RRR, no murmur - Routine Abdominal Exam Present: soft, normoactive bowel sounds, non distended, non tender - Routine Extremities Exam Present: no edema. Absent: cyanosis, clubbing - Routine Neurological Exam Present: alert, CN II-XII intact, abnormal gait, moving all extremities, vision grossly intact, hearing grossly intact - Routine Psychiatric Exam Comments: More awake than prior visit, but appears more restless and irritable Results - Labs CBC & Chem 7: 01/07/17 04:58 01/07/17 04:58 Assessment and Plan (1) Hypokalemia Problem details: Appears related to poor oral intake chronically. He does explain the EKG abnormality. he remains asymptomatic without angina or CHF. Current visit: Yes Status: Acute DVT Prophylaxis: Lovenox Resuscitation Status: Full Code Assessment and Plan: ASSESSMENT Severe hypokalemia with bradycardia and bigeminy -improved. 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 Potassium decrease to 3.7 (hemolysis yesterday) - restart potassium at 20mEq BID. Nursing to help ambulate patient. Orthostatic decreased with positional changes noted. Needs caution with positional change. Metronidazole for C. diff (Day #3). Marinol to stimulate appetite (Day #2). Recheck BMP in am secondary to hypokalemia concern. Time spent with patient care 25 minutes. Hospital Course Summary Disclaimer: The visit summary below is not to be considered part of the above Progress Note. 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 Consult Dr. Wilkerson regarding cardiac ectopy. Case discussed with him. NTG paste ordered per attending. Replace K IV + PO. Check Mg. Recheck K this evening. History of urine retention and recent UTI - check UA. Straight cath if retention of 500 mL. Uncontrolled DM - monitor postprandial sugars. Resume diabetic meds. SSI (pt had been on insulin in the past, but chart from [facility] indicated he refused it). Advanced directives: Daughter Emilee is medical DPOA; Full code but wouldn't want life prolonged if there is little chance of recovery - i.e. no feeding tube. Family is aware of wishes. PCP: Dr. Paz. 01/03/17 [place] [address]iscuss[address] case with Dr Wilkerson - he states pt is very orthostatic and recommends to stop Aldactone. Will proceed. Sliding scale coverage changed to intermediate dose. BS is above 200 consistently Will resume Glimepiride at 4mg - daily (Was on 8mg/day) Will resume Actos in the AM - Will be cautious with fluid retention. Discussed with family and director of patient care (Silvio - son in law) - and probably pt will be better off with no Actos and Amaryl - will start Lantus and will check a nuclear emptying scan in 2 days. Pt likely has autonomic neuropathy with postural hypotension Cardiology Discontinue nitroglycerin paste due to orthostasis and lack of angina Agree with your management owing serial EKGs and troponins, so far no evidence of acute cardiac syndrome EKG abnormality appears to be related to hypokalemia Discontinue spironolactone and I'm going to hold lisinopril due to orthostasis I recommend taking and treating only standing blood pressure, to prevent orthostatic hypotension and and hopefully prevent falls If orthostasis continues consider addition of Florinef 0.1 mg daily to twice a day Bilateral lower extremity pressure stockings Thank you very much for your consultation we'll follow patient along with you ! 01/04/17 [place] Blood sugars very low with Lantus - Lantus stopped. Looks down and depressed. Psych consult initiated. Potassium elevated to 5.0, increased to 5.3 recheck later this evening. Oral potassium stopped. Psych Dx: MDD, single episode, moderate; delirium Discussed possibly starting Remeron to target mood, sleep and help with appetite. We discussed taking care of medical issues and seeing if confusion improves and then possibly starting Remeron either before discharge or as an outpatient. Family is in agreement with this plan. 01/05/17 [place] Blood sugars still low-oral drive variable. Had loose stool-C diff positive. WBC elevated. Start metronidazole 500mg TID to treat C diff; Questran as needed for loose stools. Routine Miralax stopped. Will stop D5W due to concern to potentially develop hyponatremia. Start D10NS at 50cc/hr. Oral potassium stopped as patient overcorrected. Will need to continue to monitor potassium. Encourage increase in activities - today, only able to sit up at side of bed with therapy. Lantus stopped yesterday evening due to low sugars. Will stop ISS due to concern for hypoglycemia with patient's low oral intake. Will start Miacalcin due to rib fracture. Stop routine [place] due to delirium. Encourage oral intake. 01/06/17 Blood sugars still low. D10 NS increase to 100cc/hr. Blood sugar lowering agents stopped. Oral drive minimal. Okay for outside food. Start Marinol 5mg BID to stimulate appetite. Continue metronidazole 500mg TID to treat C diff; Questran as needed for loose stools. Stool frequency slowing, becoming less watery. Stress the importance of increasing activities. Continue PT/OT. Nursing to ambulate TID with assistance. Discussed with son about IRU - Not in favor of this. Does not feel Dr Ackerman would participate. Does not see anything that would be done there that could not be done at home. Pt's profound weakness a concern for us medically. 01/07/ Decrease D10NS to 75cc/hr - sugars not as low as prior days. Potassium decrease to 3.7 (hemolysis yesterday) - restart potassium at 20mEq BID. Nursing to help ambulate patient. Orthostatic decreased with positional changes noted. Needs caution with positional change. Metronidazole for C. diff (Day #3). Marinol to stimulate appetite (Day #2). Recheck BMP in am secondary to hypokalemia concern.
[2017-01-07] MEDS: PRAVASTATIN 40 MG TABLET PO SCH (20:02)
[2017-01-08] MEDS: OMEPRAZOLE 20 MG CAPSULE PO SCH ×2 (06:16→16:48)
[2017-01-08] MEDS: LEVOTHYROXINE 50 MCG TABLET PO SCH (06:17)
[2017-01-08] MEDS: ACETAMINOPHEN 325 MG TABLET PO PRN (09:06)
[2017-01-08] MEDS: CALCITONIN NASAL SPRAY 3.7ml NS SCH (09:06)
[2017-01-08] MEDS: ENOXAPARIN 40 MG/0.4 ML INJECTION SQ SCH (09:06)
[2017-01-08] MEDS: SODIUM CHLORIDE CONC 154 MEQ in D10W 1,000 ML IV SCH (09:08)
[2017-01-08] MEDS: ASPIRIN 81 MG CHEWABLE TABLET PO SCH (09:13)
[2017-01-08] MEDS: DULOXETINE 30 MG CAPSULE PO SCH (09:13)
[2017-01-08] MEDS: MetroNIDAZOLE 500 MG TABLET PO SCH ×3 (09:14→16:48)
[2017-01-08] MEDS: DRONABINOL 2.5 MG CAPSULE PO SCH ×2 (09:14→21:16)
[2017-01-08] MEDS ORDERED: SODIUM CHLORIDE CONC 154 MEQ in D10W 1,000 ML IV SCH (10:15)
[2017-01-08] MEDS ORDERED: D5NS 1,000 ML IV SCH (17:00)
--- NOTE | 2017-01-08 17:48 | Progress Note ---
Subjective: F/U: Hypokalemia, orthostasis, Type II DM Resting in bed this evening. Has been up in chair most of day. Walked some with nursing; unsteady when first up but once can get to his walker he does better. Needing less assistance to get up. Stools still loose. No ab pain or cramping. Appetite decreased and hard for him to find something that sounds appealing. No nausea. Breathing well. Urinating well. Objective Vital signs: Temperature 97.9 F 01/08/17 15:25 Pulse Rate 66 01/08/17 15:25 Respiratory Rate 16 01/08/17 15:25 Blood Pressure 118/62 01/08/17 15:25 Pulse Oximetry 96 01/08/17 15:25 Rhythm: Normal Sinus Rhythm Height/Weight/BMI: Height 1.73 m Weight 63.5 kg Body Mass Index 21.4 - Constitutional Present: well nourished, well developed, other (Looks more energetic and not as irritated this evening.) - Routine HEENT Exam Head: Present: normocephalic, atraumatic, abrasion Eye: Present: PERRL ENT: Present: mucous membranes moist - Routine Respiratory Exam Present: CTA bilaterally. Absent: respiratory distress, rhonchi, wheezes, crackles - Routine Cardiovascular Exam Present: RRR, no murmur - Routine Abdominal Exam Present: soft, normoactive bowel sounds, non distended, non tender - Routine Extremities Exam Present: no edema. Absent: cyanosis, clubbing - Routine Skin Exam Present: intact, dry, warm - Routine Neurological Exam Present: alert, CN II-XII intact, moving all extremities, vision grossly intact , hearing grossly intact - Routine Psychiatric Exam Absent: anxious, agitated Results - Labs CBC & Chem 7: 01/07/17 04:58 01/08/17 04:19 Assessment and Plan (1) Hypokalemia Problem details: Appears related to poor oral intake chronically. He does explain the EKG abnormality. he remains asymptomatic without angina or CHF. Current visit: Yes Status: Acute DVT Prophylaxis: Lovenox Resuscitation Status: Full Code Assessment and Plan: ASSESSMENT Severe hypokalemia with bradycardia and bigeminy -improved. 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 IVF changed to D5NS at 50cc/hr Would like try to decrease sugars by decreasing supplement fluid before starting hypoglycemic agents due to recent hypoglycemia. Potassium decrease to 3.5 - increase potassium at 20mEq TID with meals. Continue to work on ambulation and strengthening. Metronidazole for C. diff (Day #4). Questran prn loose stool (so far, not been used). Marinol to stimulate appetite (Day #3). Okay for any home/outside foods as he desires. Will stop omeprazole BID - started during hospitalization. Recheck BMP in am secondary to hypokalemia concern. Will repeat CBC due to C diff. Check Mg in am due to loose stools. Time spent with patient care 25 minutes. - Time spent with patient 25 - 35 minutes Hospital Course Summary Disclaimer: The visit summary below is not to be considered part of the above Progress Note. 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 Consult Dr. Wilkerson regarding cardiac ectopy. Case discussed with him. NTG paste ordered per attending. Replace K IV + PO. Check Mg. Recheck K this evening. History of urine retention and recent UTI - check UA. Straight cath if retention of 500 mL. Uncontrolled DM - monitor postprandial sugars. Resume diabetic meds. SSI (pt had been on insulin in the past, but chart from [facility] indicated he refused it). Advanced directives: Daughter Emilee is medical DPOA; Full code but wouldn't want life prolonged if there is little chance of recovery - i.e. no feeding tube. Family is aware of wishes. PCP: Dr. Paz. 01/03/17 [place] Discussed case with Dr Wilkerson - he states pt is very orthostatic and recommends to stop Aldactone. Will proceed. Sliding scale coverage changed to intermediate dose. BS is above 200 consistently Will resume Glimepiride at 4mg - daily (Was on 8mg/day) Will resume Actos in the AM - Will be cautious with fluid retention. Discussed with family and childcare worker (Silvio - son in law) - and probably pt will be better off with no Actos and Amaryl - will start Lantus and will check a nuclear emptying scan in 2 days. Pt likely has autonomic neuropathy with postural hypotension Cardiology Discontinue nitroglycerin paste due to orthostasis and lack of angina Agree with your management owing serial EKGs and troponins, so far no evidence of acute cardiac syndrome EKG abnormality appears to be related to hypokalemia Discontinue spironolactone and I'm going to hold lisinopril due to orthostasis I recommend taking and treating only standing blood pressure, to prevent orthostatic hypotension and and hopefully prevent falls If orthostasis continues consider addition of Florinef 0.1 mg daily to twice a day Bilateral lower extremity pressure stockings Thank you very much for your consultation we'll follow patient along with you ! 01/04/17 [place] Blood sugars very low with Lantus - Lantus stopped. Looks down and depressed. Psych consult initiated. Potassium elevated to 5.0, increased to 5.3 recheck later this evening. Oral potassium stopped. Psych Dx: MDD, single episode, moderate; delirium Discussed possibly starting Remeron to target mood, sleep and help with appetite. We discussed taking care of medical issues and seeing if confusion improves and then possibly starting Remeron either before discharge or as an outpatient. Family is in agreement with this plan. 01/05/17 [place] Blood sugars still low-oral drive variable. Had loose stool-C diff positive. WBC elevated. Start metronidazole 500mg TID to treat C diff; Questran as needed for loose stools. Routine Miralax stopped. Will stop D5W due to concern to potentially develop hyponatremia. Start D10NS at 50cc/hr. Oral potassium stopped as patient overcorrected. Will need to continue to monitor potassium. Encourage increase in activities - today, only able to sit up at side of bed with therapy. Lantus stopped yesterday evening due to low sugars. Will stop ISS due to concern for hypoglycemia with patient's low oral intake. Will start Miacalcin due to rib fracture. Stop routine [place] due to delirium. Encourage oral intake. 01/06/17 Blood sugars still low. D10 NS increase to 100cc/hr. Blood sugar lowering agents stopped. Oral drive minimal. Okay for outside food. Start Marinol 5mg BID to stimulate appetite. Continue metronidazole 500mg TID to treat C diff; Questran as needed for loose stools. Stool frequency slowing, becoming less watery. Stress the importance of increasing activities. Continue PT/OT. Nursing to ambulate TID with assistance. Discussed with son about IRU - Not in favor of this. Does not feel Dr Ackerman would participate. Does not see anything that would be done there that could not be done at home. Pt's profound weakness a concern for us medically. 01/07/17 Decrease D10NS to 75cc/hr - sugars not as low as prior days. Potassium decrease to 3.7 (hemolysis yesterday) - restart potassium at 20mEq BID. Nursing to help ambulate patient. Orthostatic decreased with positional changes noted. Needs caution with positional change. Metronidazole for C. diff (Day #3). Marinol to stimulate appetite (Day #2). Recheck BMP in am secondary to hypokalemia concern. 01/08/17 Sugars showing elevation - profound hypoglycemia of prior days resolved. IVF changed to D5NS at 50cc/hr Would like try to decrease sugars by decreasing supplement fluid before starting hypoglycemic agents due to recent hypoglycemia. Potassium decrease to 3.5 - increase potassium at 20mEq TID with meals. Continue to work on ambulation and strengthening. Metronidazole for C. diff (Day #4). Questran prn loose stool (so far, not been used). Marinol to stimulate appetite (Day #3). Okay for any home/outside foods as he desires. Will stop omeprazole BID - started during hospitalization. Recheck BMP in am secondary to hypokalemia concern. Will repeat CBC due to C diff. Check Mg in am due to loose stools.
[2017-01-08] MEDS: PRAVASTATIN 40 MG TABLET PO SCH (21:16)
[2017-01-09] MEDS: LEVOTHYROXINE 50 MCG TABLET PO SCH (06:04)
[2017-01-09] MEDS: DRONABINOL 2.5 MG CAPSULE PO SCH ×2 (08:17→21:10)
[2017-01-09] MEDS: CYANOCOBALAMIN (B-12) 500mcg TABLET PO SCH (08:17)
[2017-01-09] MEDS: CALCITONIN NASAL SPRAY 3.7ml NS SCH (08:18)
[2017-01-09] MEDS: MetroNIDAZOLE 500 MG TABLET PO SCH ×3 (08:18→17:10)
[2017-01-09] MEDS: DULOXETINE 30 MG CAPSULE PO SCH (08:18)
[2017-01-09] MEDS: ASPIRIN 81 MG CHEWABLE TABLET PO SCH (08:18)
[2017-01-09] MEDS: ENOXAPARIN 40 MG/0.4 ML INJECTION SQ SCH (08:19)
[2017-01-09] MEDS ORDERED: NON-FORMULARY MEDICATION 1 EACH EACH (Cyanocobalamin (Vitamin B-12) [Vitamin B-12] 1,000 M PO SCH (09:00)
--- NOTE | 2017-01-09 12:42 | Progress Note ---
Subjective: F/U: Hypokalemia, orthostasis, Type II DM More confused today. Breathing feels 'okay.' Notes some discomfort with breathing. No cough. Appetite variable, still hard to find food that sounds appealing. Son at bedside-upset about the C diff. Wants to know why antibiotics started this hospitalization when he came in for weakness/falls and then found to have very low potassium. Reviewed MAR and no antibiotics other than metronidazole (started for C diff) given-had pharmacy double check and they also found no antibiotics given. Medical record does show Urine culture with Klebsiella pneumonia from 12/18 - no antibiotics listed on his home med list at presentation. Patient was NOT having any diarrhea before admission. WBC normal at admission. Objective Vital signs: Temperature 95.6 F L 01/09/17 10:53 Pulse Rate 70 01/09/17 10:53 Respiratory Rate 18 01/09/17 10:53 Blood Pressure 172/72 H 01/09/17 10:53 Pulse Oximetry 94 01/09/17 10:53 Rhythm: Normal Sinus Rhythm Height/Weight/BMI: Height 1.73 m Weight 64.5 kg Body Mass Index 21.4 - Constitutional Present: well nourished, well developed, thin, other (Confused) - Routine HEENT Exam Head: Present: normocephalic, atraumatic Eye: Present: EOMI, PERRL ENT: Present: mucous membranes moist - Routine Respiratory Exam Present: CTA bilaterally. Absent: respiratory distress, wheezes, crackles - Routine Cardiovascular Exam Present: RRR - Routine Abdominal Exam Present: soft, normoactive bowel sounds, non distended, non tender. Absent: guarding, firm - Routine Extremities Exam Present: no edema, pulses intact. Absent: cyanosis, clubbing - Routine Skin Exam Present: dry. Absent: warm - Routine Neurological Exam Present: CN II-XII intact, moving all extremities, vision grossly intact, hearing grossly intact. Absent: motor deficit - Routine Psychiatric Exam Absent: anxious, agitated Comments: Restless, confusion not present yesterday. Results - Labs CBC & Chem 7: 01/09/17 04:22 01/09/17 04:22 Assessment and Plan (1) Hypokalemia Problem details: Appears related to poor oral intake chronically. He does explain the EKG abnormality. he remains asymptomatic without angina or CHF. Current visit: Yes Status: Acute DVT Prophylaxis: Lovenox Resuscitation Status: Full Code Assessment and Plan: ASSESSMENT Severe hypokalemia with bradycardia and bigeminy -improved. 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 Would still avoid agents to lower sugars due to significant hypoglycemia earlier. Potassium increase to 4.7 - decrease potassium at 20mEq BID with meals. Continue to work on ambulation and strengthening. Metronidazole for C. diff (Day #5). Questran prn loose stool (so far, not been used). 4 stools yesterday - 3 so far today. Marinol to stimulate appetite (Day #4). Okay for any home/outside foods as he desires. Discussed with son about care plans and goals. Son would like patient home as soon as possible. Confusion today concerning-strength and cognition doing so well yesterday. Recheck BMP in am secondary to hypokalemia concern. Will repeat CBC due to C diff. Check Mg in am due to loose stools. Case discussed at length with patient's son. Questions answered. Time spent with patient care 35 minutes. Hospital Course Summary Disclaimer: The visit summary below is not to be considered part of the above Progress Note. 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 Consult Dr. Wilkerson regarding cardiac ectopy. Case discussed with him. NTG paste ordered per attending. Replace K IV + PO. Check Mg. Recheck K this evening. History of urine retention and recent UTI - check UA. Straight cath if retention of 500 mL. Uncontrolled DM - monitor postprandial sugars. Resume diabetic meds. SSI (pt had been on insulin in the past, but chart from [facility] indicated he refused it). Advanced directives: Daughter Emilee is medical DPOA; Full code but wouldn't want life prolonged if there is little chance of recovery - i.e. no feeding tube. Family is aware of wishes. PCP: Dr. Paz. 01/03/17 [place] Discuss[address] case with Dr Wilkerson - he states pt is very orthostatic and recommends to stop Aldactone. Will proceed. Sliding scale coverage changed to intermediate dose. BS is above 200 consistently Will resume Glimepiride at 4mg - daily (Was on 8mg/day) Will resume Actos in the AM - Will be cautious with fluid retention. Discussed with family and critical care technician (Silvio - son in law) - and probably pt will be better off with no Actos and Amaryl - will start Lantus and will check a nuclear emptying scan in 2 days. Pt likely has autonomic neuropathy with postural hypotension Cardiology Discontinue nitroglycerin paste due to orthostasis and lack of angina Agree with your management owing serial EKGs and troponins, so far no evidence of acute cardiac syndrome EKG abnormality appears to be related to hypokalemia Discontinue spironolactone and I'm going to hold lisinopril due to orthostasis I recommend taking and treating only standing blood pressure, to prevent orthostatic hypotension and and hopefully prevent falls If orthostasis continues consider addition of Florinef 0.1 mg daily to twice a day Bilateral lower extremity pressure stockings Thank you very much for your consultation we'll follow patient along with you ! 01/04/17 [place] Blood sugars very low with Lantus - Lantus stopped. Looks down and depressed. Psych consult initiated. Potassium elevated to 5.0, increased to 5.3 recheck later this evening. Oral potassium stopped. Psych Dx: MDD, single episode, moderate; delirium Discussed possibly starting Remeron to target mood, sleep and help with appetite. We discussed taking care of medical issues and seeing if confusion improves and then possibly starting Remeron either before discharge or as an outpatient. Family is in agreement with this plan. 01/05/17 [place] Blood sugars still low-oral drive variable. Had loose stool-C diff positive. WBC elevated. Start metronidazole 500mg TID to treat C diff; Questran as needed for loose stools. Routine Miralax stopped. Will stop D5W due to concern to potentially develop hyponatremia. Start D10NS at 50cc/hr. Oral potassium stopped as patient overcorrected. Will need to continue to monitor potassium. Encourage increase in activities - today, only able to sit up at side of bed with therapy. Lantus stopped yesterday evening due to low sugars. Will stop ISS due to concern for hypoglycemia with patient's low oral intake. Will start Miacalcin due to rib fracture. Stop routine [place] due to delirium. Encourage oral intake. 01/06/17 Blood sugars still low. D10 NS increase to 100cc/hr. Blood sugar lowering agents stopped. Oral drive minimal. Okay for outside food. Start Marinol 5mg BID to stimulate appetite. Continue metronidazole 500mg TID to treat C diff; Questran as needed for loose stools. Stool frequency slowing, becoming less watery. Stress the importance of increasing activities. Continue PT/OT. Nursing to ambulate TID with assistance. Discussed with son about IRU - Not in favor of this. Does not feel Dr Ackerman would participate. Does not see anything that would be done there that could not be done at home. Pt's profound weakness a concern for us medically. 01/07/17 Decrease D10NS to 75cc/hr - sugars not as low as prior days. Potassium decrease to 3.7 (hemolysis yesterday) - restart potassium at 20mEq BID. Nursing to help ambulate patient. Orthostatic decreased with positional changes noted. Needs caution with positional change. Metronidazole for C. diff (Day #3). Marinol to stimulate appetite (Day #2). Recheck BMP in am secondary to hypokalemia concern. 01/08/17 Sugars showing elevation - profound hypoglycemia of prior days resolved. IVF changed to D5NS at 50cc/hr Would like try to decrease sugars by decreasing supplement fluid before starting hypoglycemic agents due to recent hypoglycemia. Potassium decrease to 3.5 - increase potassium at 20mEq TID with meals. Continue to work on ambulation and strengthening. Metronidazole for C. diff (Day #4). Questran prn loose stool (so far, not been used). Marinol to stimulate appetite (Day #3). Okay for any home/outside foods as he desires. Will stop omeprazole BID - started during hospitalization. Recheck BMP in am secondary to hypokalemia concern. Will repeat CBC due to C diff. Check Mg in am due to loose stools. 01/09/17 Change to NS at 50cc/hr - sugars elevated. Would still avoid agents to lower sugars due to significant hypoglycemia earlier. Potassium increase to 4.7 - decrease potassium at 20mEq BID with meals. Continue to work on ambulation and strengthening. Metronidazole for C. diff (Day #5). Questran prn loose stool (so far, not been used). 4 stools yesterday - 3 so far today. Marinol to stimulate appetite (Day #4). Okay for any home/outside foods as he desires. Discussed with son about care plans and goals. Son would like patient home as soon as possible. Confusion today concerning-strength and cognition doing so well yesterday. Recheck BMP in am secondary to hypokalemia concern. Will repeat CBC due to C diff. Check Mg in am due to loose stools.
[2017-01-09] MEDS: NS 1,000 ML IV SCH (12:59)
[2017-01-09] MEDS: ACETAMINOPHEN 325 MG TABLET PO PRN (21:09)
[2017-01-09] MEDS: PRAVASTATIN 40 MG TABLET PO SCH (21:09)
[2017-01-09] MEDS: ONDANSETRON 4 MG/2 ML INJECTION IVP PRN (21:09)
[2017-01-10] MEDS: LEVOTHYROXINE 50 MCG TABLET PO SCH (06:16)
[2017-01-10] MEDS: DULOXETINE 30 MG CAPSULE PO SCH (09:13)
[2017-01-10] MEDS: MetroNIDAZOLE 500 MG TABLET PO SCH ×3 (09:13→18:42)
[2017-01-10] MEDS: ENOXAPARIN 40 MG/0.4 ML INJECTION SQ SCH (09:14)
[2017-01-10] MEDS: CALCITONIN NASAL SPRAY 3.7ml NS SCH (09:14)
[2017-01-10] MEDS: ASPIRIN 81 MG CHEWABLE TABLET PO SCH (09:14)
[2017-01-10] MEDS: DRONABINOL 2.5 MG CAPSULE PO SCH ×2 (09:14→21:36)
[2017-01-10] MEDS: CYANOCOBALAMIN (B-12) 500mcg TABLET PO SCH (09:14)
[2017-01-10] MEDS: NS 1,000 ML IV SCH (11:05)
--- NOTE | 2017-01-10 11:45 | Progress Note ---
Subjective: F/U: Hypokalemia, orthostasis, Type II DM Sitting up in chair this morning. Feels 'okay.' Has been up with nursing-notes some instability and unsteadiness, but about at his baseline. Stools still loose and urgent. Denies ab pain or discomfort. Not reporting anal itch or pain. Breathing well-no cough or congestion. Maintaining saturations well on RA. Appetite about the same-nothing really sounds good. Nursing reports patient more clear this morning. Objective Vital signs: Temperature 97.6 F 01/10/17 11:32 Pulse Rate 70 01/10/17 11:32 Respiratory Rate 16 01/10/17 11:32 Blood Pressure 130/69 01/10/17 11:32 Pulse Oximetry 100 01/10/17 11:32 Rhythm: Normal Sinus Rhythm Height/Weight/BMI: Height 1.73 m Weight 64.6 kg Body Mass Index 21.4 - Constitutional Present: moderate distress, well nourished, thin. Absent: combative, agitated - Routine HEENT Exam Head: Present: normocephalic, atraumatic Eye: Present: EOMI, PERRL ENT: Present: mucous membranes moist - Routine Respiratory Exam Present: decreased breath sounds, CTA bilaterally. Absent: respiratory distress , rhonchi, wheezes, crackles - Routine Cardiovascular Exam Present: RRR, no murmur - Routine Abdominal Exam Present: soft, normoactive bowel sounds, non distended, non tender - Routine Extremities Exam Present: no edema. Absent: cyanosis, clubbing - Routine Skin Exam Present: dry, warm - Routine Neurological Exam Present: CN II-XII intact, clonus, vision grossly intact, hearing grossly intact. Absent: motor deficit - Routine Psychiatric Exam Present: normal affect. Absent: anxious, agitated Results - Labs CBC & Chem 7: 01/10/17 04:23 01/10/17 04:23 Assessment and Plan (1) Hypokalemia Problem details: Appears related to poor oral intake chronically. He does explain the EKG abnormality. he remains asymptomatic without angina or CHF. Current visit: Yes Status: Acute DVT Prophylaxis: Lovenox Resuscitation Status: Full Code Assessment and Plan: ASSESSMENT Severe hypokalemia with bradycardia and bigeminy -improved. 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 Running in the 180-200 range. Not a bad target goal with his decreased and variable oral drive. Really need to avoid hypoglycemia. Potassium 3.7 this am. Will continue 20mEg BID. Encourage continued activities. Metronidazole for C. diff (Day #6). Questran prn loose stool (so far, not been used). Will have nursing give Questran to help slow stools . Marinol to stimulate appetite (Day #5). Okay for any home/outside foods as he desires. Recheck BMP in am secondary to hypokalemia concern. Will repeat CBC due to C diff. Check Mg in am due to loose stools. With sugars and potassium improving, hope for discharge in near future. Time spent with patient care 25 minutes. Hospital Course Summary Disclaimer: The visit summary below is not to be considered part of the above Progress Note. 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 Consult Dr. Wilkerson regarding cardiac ectopy. Case discussed with him. NTG paste ordered per attending. Replace K IV + PO. Check Mg. Recheck K this evening. History of urine retention and recent UTI - check UA. Straight cath if retention of 500 mL. Uncontrolled DM - monitor postprandial sugars. Resume diabetic meds. SSI (pt had been on insulin in the past, but chart from [facility] indicated he refused it). Advanced directives: Daughter Emilee is medical DPOA; Full code but wouldn't want life prolonged if there is little chance of recovery - i.e. no feeding tube. Family is aware of wishes. PCP: Dr. Paz. 01/03/17 [place] Discussed case with Dr Wilkerson - he states pt is very orthostatic and recommends to stop Aldactone. Will proceed. Sliding scale coverage changed to intermediate dose. BS is above 200 consistently Will resume Glimepiride at 4mg - daily (Was on 8mg/day) Will resume Actos in the AM - Will be cautious with fluid retention. Discussed with family and wound care physician (Silvio - son in law) - and probably pt will be better off with no Actos and Amaryl - will start Lantus and will check a nuclear emptying scan in 2 days. Pt likely has autonomic neuropathy with postural hypotension Cardiology Discontinue nitroglycerin paste due to orthostasis and lack of angina Agree with your management owing serial EKGs and troponins, so far no evidence of acute cardiac syndrome EKG abnormality appears to be related to hypokalemia Discontinue spironolactone and I'm going to hold lisinopril due to orthostasis I recommend taking and treating only standing blood pressure, to prevent orthostatic hypotension and and hopefully prevent falls If orthostasis continues consider addition of Florinef 0.1 mg daily to twice a day Bilateral lower extremity pressure stockings Thank you very much for your consultation we'll follow patient along with you ! 01/04/17 [place] Blood sugars very low with Lantus - Lantus stopped. Looks down and depressed. Psych consult initiated. Potassium elevated to 5.0, increased to 5.3 recheck later this evening. Oral potassium stopped. Psych Dx: MDD, single episode, moderate; delirium Discussed possibly starting Remeron to target mood, sleep and help with appetite. We discussed taking care of medical issues and seeing if confusion improves and then possibly starting Remeron either before discharge or as an outpatient. Family is in agreement with this plan. 01/05/17 [place] Blood sugars still low-oral drive variable. Had loose stool-C diff positive. WBC elevated. Start metronidazole 500mg TID to treat C diff; Questran as needed for loose stools. Routine Miralax stopped. Will stop D5W due to concern to potentially develop hyponatremia. Start D10NS at 50cc/hr. Oral potassium stopped as patient overcorrected. Will need to continue to monitor potassium. Encourage increase in activities - today, only able to sit up at side of bed with therapy. Lantus stopped yesterday evening due to low sugars. Will stop ISS due to concern for hypoglycemia with patient's low oral intake. Will start Miacalcin due to rib fracture. Stop routine [place] due to delirium. Encourage oral intake. 01/06/17 Blood sugars still low. D10 NS increase to 100cc/hr. Blood sugar lowering agents stopped. Oral drive minimal. Okay for outside food. Start Marinol 5mg BID to stimulate appetite. Continue metronidazole 500mg TID to treat C diff; Questran as needed for loose stools. Stool frequency slowing, becoming less watery. Stress the importance of increasing activities. Continue PT/OT. Nursing to ambulate TID with assistance. Discussed with son about IRU - Not in favor of this. Does not feel Dr Ackerman would participate. Does not see anything that would be done there that could not be done at home. Pt's profound weakness a concern for us medically. 01/07/17 Decrease D10NS to 75cc/hr - sugars not as low as prior days. Potassium decrease to 3.7 (hemolysis yesterday) - restart potassium at 20mEq BID. Nursing to help ambulate patient. Orthostatic decreased with positional changes noted. Needs caution with positional change. Metronidazole for C. diff (Day #3). Marinol to stimulate appetite (Day #2). Recheck BMP in am secondary to hypokalemia concern. 01/08/17 Sugars showing elevation - profound hypoglycemia of prior days resolved. IVF changed to D5NS at 50cc/hr Would like try to decrease sugars by decreasing supplement fluid before starting hypoglycemic agents due to recent hypoglycemia. Potassium decrease to 3.5 - increase potassium at 20mEq TID with meals. Continue to work on ambulation and strengthening. Metronidazole for C. diff (Day #4). Questran prn loose stool (so far, not been used). Marinol to stimulate appetite (Day #3). Okay for any home/outside foods as he desires. Will stop omeprazole BID - started during hospitalization. Recheck BMP in am secondary to hypokalemia concern. Will repeat CBC due to C diff. Check Mg in am due to loose stools. 01/09/17 Change to NS at 50cc/hr - sugars elevated. Would still avoid agents to lower sugars due to significant hypoglycemia earlier. Potassium increase to 4.7 - decrease potassium at 20mEq BID with meals. Continue to work on ambulation and strengthening. Metronidazole for C. diff (Day #5). Questran prn loose stool (so far, not been used). 4 stools yesterday - 3 so far today. Marinol to stimulate appetite (Day #4). Okay for any home/outside foods as he desires. Discussed with son about care plans and goals. Son would like patient home as soon as possible. Confusion today concerning-strength and cognition doing so well yesterday. Recheck BMP in am secondary to hypokalemia concern. Will repeat CBC due to C diff. Check Mg in am due to loose stools. 01/10/17 Blood sugars improved. Running in the 180-200 range. Not a bad target goal with his decreased and variable oral drive. Really need to avoid hypoglycemia. Potassium 3.7 this am. Will continue 20mEg BID. Encourage continued activities. Metronidazole for C. diff (Day #6). Questran prn loose stool (so far, not been used). Will have nursing give Questran to help slow stools . Marinol to stimulate appetite (Day #5). Okay for any home/outside foods as he desires. Recheck BMP in am secondary to hypokalemia concern. Will repeat CBC due to C diff. Check Mg in am due to loose stools. With sugars and potassium improving, hope for discharge in near future.
[2017-01-10] MEDS: INSULIN ASPART 100unit/ml INJECTION SQ SCH (18:43)
[2017-01-10] MEDS: PRAVASTATIN 40 MG TABLET PO SCH (21:36)
[2017-01-10] MEDS: ACETAMINOPHEN 325 MG TABLET PO PRN (21:37)
[2017-01-11] MEDS: LEVOTHYROXINE 50 MCG TABLET PO SCH (07:27)
[2017-01-11] MEDS: NS 1,000 ML IV SCH (07:27)
[2017-01-11] MEDS: DULOXETINE 30 MG CAPSULE PO SCH (08:57)
[2017-01-11] MEDS: CYANOCOBALAMIN (B-12) 500mcg TABLET PO SCH (08:57)
[2017-01-11] MEDS: ASPIRIN 81 MG CHEWABLE TABLET PO SCH (08:57)
[2017-01-11] MEDS: ENOXAPARIN 40 MG/0.4 ML INJECTION SQ SCH (08:58)
[2017-01-11] MEDS: MetroNIDAZOLE 500 MG TABLET PO SCH ×3 (08:58→16:55)
[2017-01-11] MEDS: DRONABINOL 2.5 MG CAPSULE PO SCH ×2 (08:58→21:26)
[2017-01-11] MEDS: INSULIN ASPART 100unit/ml INJECTION SQ SCH ×3 (08:59→16:55)
[2017-01-11] MEDS: CALCITONIN NASAL SPRAY 3.7ml NS SCH (09:02)
[2017-01-11 13:09] VITALS: BMI 22.1
--- NOTE | 2017-01-11 15:12 | Progress Note ---
<Sandy Lau V - Last Filed: 01/11/17 15:08> Subjective: Mr Ackerman is seen and examined today in follow-up for hypoglycemia. He is up in the chair watching television. He is alert and pleasant, however, states he really like to be discharged today. Overall blood sugars have been better controlled, fasting sugar this morning was elevated at 238. He denies having pain, shortness of breath or GI complaints. Vitals reviewed. Objective Vital signs: Temperature 97.4 F 01/11/17 11:23 Pulse Rate 62 01/11/17 11:23 Respiratory Rate 16 01/11/17 11:23 Blood Pressure 147/66 H 01/11/17 11:23 Pulse Oximetry 98 01/11/17 11:23 Height/Weight/BMI: Height 1.73 m Weight 66.224 kg Body Mass Index 22.1 - Constitutional Present: no acute distress, well nourished, well developed - Routine HEENT Exam Eye: Present: EOMI ENT: Present: mucous membranes moist, dentition normal - Routine Respiratory Exam Present: CTA bilaterally. Absent: wheezes - Routine Cardiovascular Exam Present: RRR, S1, S2. Absent: murmur - Routine Abdominal Exam Present: soft, normoactive bowel sounds, non distended. Absent: tenderness - Routine Extremities Exam Present: normal capillary refill - Routine Back/Spine/Pelvis Exam Back/Spine: Present: full ROM - Routine Skin Exam Present: intact, dry, warm - Routine Neurological Exam Present: alert, oriented X3, CN II-XII intact - Routine Lymphatic Exam Lymphatic: Absent: adenopathy - Routine Psychiatric Exam Present: normal affect Results - Labs CBC & Chem 7: 01/11/17 04:14 01/11/17 04:14 Assessment and Plan (1) Hypokalemia Problem details: Appears related to poor oral intake chronically. He does explain the EKG abnormality. he remains asymptomatic without angina or CHF. Current visit: Yes Status: Acute Assessment and Plan: ASSESSMENT Severe hypokalemia with bradycardia and bigeminy -improved. 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 Will is to avoid any further episodes of hypoglycemia. Overall, appetite appears to be improved today. Patient 825% of breakfast, however, 100% of lunch. Marinol given for appetite stimulation Continue with metronidazole for treatment of C. difficile. Today is day 7 of treatment. Encourage nursing staff to utilize Questran as needed for loose stools Electrolytes remain normal. Hemoglobin stable, although is low at 8.9. Lovenox subcutaneous daily for DVT prophylaxis Overall doing well. Will discuss further plan with attending Dr Kirkpatrick Hospital Course Summary Disclaimer: The visit summary below is not to be considered part of the above Progress Note. 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 Consult Dr. Wilkerson regarding cardiac ectopy. Case discussed with him. NTG paste ordered per attending. Replace K IV + PO. Check Mg. Recheck K this evening. History of urine retention and recent UTI - check UA. Straight cath if retention of 500 mL. Uncontrolled DM - monitor postprandial sugars. Resume diabetic meds. SSI (pt had been on insulin in the past, but chart from [facility] indicated he refused it). Advanced directives: Daughter Emilee is medical DPOA; Full code but wouldn't want life prolonged if there is little chance of recovery - i.e. no feeding tube. Family is aware of wishes. PCP: Dr. Paz. 01/03/17 [place] [address]iscuss[address] case with Dr Wilkerson - he states pt is very orthostatic and recommends to stop Aldactone. Will proceed. Sliding scale coverage changed to intermediate dose. BS is above 200 consistently Will resume Glimepiride at 4mg - daily (Was on 8mg/day) Will resume Actos in the AM - Will be cautious with fluid retention. Discussed with family and farm or ranch animal caretaker (Silvio - son in law) - and probably pt will be better off with no Actos and Amaryl - will start Lantus and will check a nuclear emptying scan in 2 days. Pt likely has autonomic neuropathy with postural hypotension Cardiology Discontinue nitroglycerin paste due to orthostasis and lack of angina Agree with your management owing serial EKGs and troponins, so far no evidence of acute cardiac syndrome EKG abnormality appears to be related to hypokalemia Discontinue spironolactone and I'm going to hold lisinopril due to orthostasis I recommend taking and treating only standing blood pressure, to prevent orthostatic hypotension and and hopefully prevent falls If orthostasis continues consider addition of Florinef 0.1 mg daily to twice a day Bilateral lower extremity pressure stockings Thank you very much for your consultation we'll follow patient along with you ! 01/04/17 [place] Blood sugars very low with Lantus - Lantus stopped. Looks down and depressed. Psych consult initiated. Potassium elevated to 5.0, increased to 5.3 recheck later this evening. Oral potassium stopped. Psych Dx: MDD, single episode, moderate; delirium Discussed possibly starting Remeron to target mood, sleep and help with appetite. We discussed taking care of medical issues and seeing if confusion improves and then possibly starting Remeron either before discharge or as an outpatient. Family is in agreement with this plan. 01/05/17 [place] Blood sugars still low-oral drive variable. Had loose stool-C diff positive. WBC elevated. Start metronidazole 500mg TID to treat C diff; Questran as needed for loose stools. Routine Miralax stopped. Will stop D5W due to concern to potentially develop hyponatremia. Start D10NS at 50cc/hr. Oral potassium stopped as patient overcorrected. Will need to continue to monitor potassium. Encourage increase in activities - today, only able to sit up at side of bed with therapy. Lantus stopped yesterday evening due to low sugars. Will stop ISS due to concern for hypoglycemia with patient's low oral intake. Will start Miacalcin due to rib fracture. Stop routine [place] due to delirium. Encourage oral intake. 01/06/17 Blood sugars still low. D10 NS increase to 100cc/hr. Blood sugar lowering agents stopped. Oral drive minimal. Okay for outside food. Start Marinol 5mg BID to stimulate appetite. Continue metronidazole 500mg TID to treat C diff; Questran as needed for loose stools. Stool frequency slowing, becoming less watery. Stress the importance of increasing activities. Continue PT/OT. Nursing to ambulate TID with assistance. Discussed with son about IRU - Not in favor of this. Does not feel Dr Ackerman would participate. Does not see anything that would be done there that could not be done at home. Pt's profound weakness a concern for us medically. 01/07/17 Decrease D10NS to 75cc/hr - sugars not as low as prior days. Potassium decrease to 3.7 (hemolysis yesterday) - restart potassium at 20mEq BID. Nursing to help ambulate patient. Orthostatic decreased with positional changes noted. Needs caution with positional change. Metronidazole for C. diff (Day #3). Marinol to stimulate appetite (Day #2). Recheck BMP in am secondary to hypokalemia concern. 01/08/17 Sugars showing elevation - profound hypoglycemia of prior days resolved. IVF changed to D5NS at 50cc/hr Would like try to decrease sugars by decreasing supplement fluid before starting hypoglycemic agents due to recent hypoglycemia. Potassium decrease to 3.5 - increase potassium at 20mEq TID with meals. Continue to work on ambulation and strengthening. Metronidazole for C. diff (Day #4). Questran prn loose stool (so far, not been used). Marinol to stimulate appetite (Day #3). Okay for any home/outside foods as he desires. Will stop omeprazole BID - started during hospitalization. Recheck BMP in am secondary to hypokalemia concern. Will repeat CBC due to C diff. Check Mg in am due to loose stools. 01/09/17 Change to NS at 50cc/hr - sugars elevated. Would still avoid agents to lower sugars due to significant hypoglycemia earlier. Potassium increase to 4.7 - decrease potassium at 20mEq BID with meals. Continue to work on ambulation and strengthening. Metronidazole for C. diff (Day #5). Questran prn loose stool (so far, not been used). 4 stools yesterday - 3 so far today. Marinol to stimulate appetite (Day #4). Okay for any home/outside foods as he desires. Discussed with son about care plans and goals. Son would like patient home as soon as possible. Confusion today concerning-strength and cognition doing so well yesterday. Recheck BMP in am secondary to hypokalemia concern. Will repeat CBC due to C diff. Check Mg in am due to loose stools. 01/10/17 Blood sugars improved. Running in the 180-200 range. Not a bad target goal with his decreased and variable oral drive. Really need to avoid hypoglycemia. Potassium 3.7 this am. Will continue 20mEg BID. Encourage continued activities. Metronidazole for C. diff (Day #6). Questran prn loose stool (so far, not been used). Will have nursing give Questran to help slow stools . Marinol to stimulate appetite (Day #5). Okay for any home/outside foods as he desires. Recheck BMP in am secondary to hypokalemia concern. Will repeat CBC due to C diff. Check Mg in am due to loose stools. With sugars and potassium improving, hope for discharge in near future. 01/11/17 [place] Continue to follow blood sugars. Will is to avoid any further episodes of hypoglycemia. Overall, appetite appears to be improved today. Patient 825% of breakfast, however, 100% of lunch. Marinol given for appetite stimulation Continue with metronidazole for treatment of C. difficile. Today is day 7 of treatment. Encourage nursing staff to utilize Questran as needed for loose stools Electrolytes remain normal. Hemoglobin stable, although is low at 8.9. Lovenox subcutaneous daily for DVT prophylaxis Overall doing well. Will discuss further plan with attending Dr Harper <Cyrus Kirkpatrick - Last Filed: 01/11/17 20:15> Objective Vital signs: Temperature 97.5 F 01/11/17 15:12 Pulse Rate 70 01/11/17 16:00 Respiratory Rate 18 01/11/17 15:12 Blood Pressure 144/83 H 01/11/17 15:12 Pulse Oximetry 99 01/11/17 15:12 Height/Weight/BMI: Height 1.73 m Weight 66.224 kg Body Mass Index 22.1 Results - Labs CBC & Chem 7: 01/11/17 04:14 01/11/17 04:14 Assessment and Plan (1) Hypokalemia Problem details: Appears related to poor oral intake chronically. He does explain the EKG abnormality. he remains asymptomatic without angina or CHF. Current visit: Yes Status: Acute DVT Prophylaxis: Lovenox Resuscitation Status: Full Code Assessment and Plan: ASSESSMENT Severe hypokalemia with bradycardia and bigeminy -improved. 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 Chart reviewed. Case discussed with DESHAUN and my [employer]. Care plan developed with my supervision; agree with above. Resting this evening but easily awakened. No specific c/o. Oral intake with some increase (but still not liking the food). Denies ab pain or nausea. Breathing well. Lungs: clear bilaterally, no distress on RA. CV: regular AB: soft nt/nd Plan: Increase insulin to 6 units TIDWM - not seeing hypoglycemia, oral intake increasing. Continue Metronidazole for C diff treatment. Encourage strengthening. Discussed with CM - pt does have DPOA. Plans for him to return home when ready for discharge. Hospital Course Summary Disclaimer: The visit summary below is not to be considered part of the above Progress Note.
[2017-01-11] MEDS: PRAVASTATIN 40 MG TABLET PO SCH (21:26)
[2017-01-12] MEDS: NS 1,000 ML IV SCH (04:16)
[2017-01-12] MEDS: LEVOTHYROXINE 50 MCG TABLET PO SCH (06:43)
[2017-01-12] MEDS: MetroNIDAZOLE 500 MG TABLET PO SCH ×3 (08:40→17:59)
[2017-01-12] MEDS: CYANOCOBALAMIN (B-12) 500mcg TABLET PO SCH (08:40)
[2017-01-12] MEDS: CALCITONIN NASAL SPRAY 3.7ml NS SCH (08:41)
[2017-01-12] MEDS: DRONABINOL 2.5 MG CAPSULE PO SCH ×2 (08:41→21:01)
[2017-01-12] MEDS: ASPIRIN 81 MG CHEWABLE TABLET PO SCH (08:41)
[2017-01-12] MEDS: ENOXAPARIN 40 MG/0.4 ML INJECTION SQ SCH (08:42)
[2017-01-12] MEDS: INSULIN ASPART 100unit/ml INJECTION SQ SCH ×3 (09:02→17:59)
[2017-01-12] MEDS: DULOXETINE 30 MG CAPSULE PO SCH (09:03)
[2017-01-12] MEDS: LACTOBACILLUS (15B cfu) CAPSULE PO SCH ×2 (13:08→17:59)
[2017-01-12 16:16] VITALS: RESP 18
--- NOTE | 2017-01-12 17:01 | Progress Note ---
Subjective: F/U: Hypokalemia, orthostasis, Type II DM Eating better (still not aways liking the food)-appetite has perked up with Marinol. IVF stopped today to see how orthostasis does without, noting more significant drop in blood pressure-patient feeling more weak/unsteady when getting up. Minimal ab discomfort, but still notes fecal urgency. Nursing did give dose of Questran this afternoon to try to slow stool frequency. Breathing well. Objective Vital signs: Temperature 98.1 F 01/12/17 16:13 Pulse Rate 103 H 01/12/17 16:17 Respiratory Rate 18 01/12/17 16:13 Blood Pressure 130/63 01/12/17 16:17 Pulse Oximetry 91 01/12/17 16:13 Rhythm: Normal Sinus Rhythm Height/Weight/BMI: Height 1.73 m Weight 59.9 kg Body Mass Index 22.1 - Constitutional Present: well nourished, well developed, thin. Absent: combative, agitated - Routine HEENT Exam Head: Present: normocephalic, atraumatic Eye: Present: EOMI, PERRL ENT: Present: mucous membranes moist - Routine Respiratory Exam Present: CTA bilaterally. Absent: respiratory distress, stridor, wheezes, crackles - Routine Cardiovascular Exam Present: RRR, no murmur - Routine Abdominal Exam Present: soft, normoactive bowel sounds, non distended, non tender - Routine Extremities Exam Present: no edema, pulses intact. Absent: cyanosis, clubbing - Routine Musculoskeletal Exam Musculoskeletal: Present: no clubbing or cyanosis - Routine Skin Exam Present: dry, warm - Routine Neurological Exam Present: alert, CN II-XII intact, moving all extremities, vision grossly intact , hearing grossly intact - Routine Psychiatric Exam Present: normal affect. Absent: anxious, agitated Results - Labs CBC & Chem 7: 01/12/17 04:22 01/12/17 04:22 Assessment and Plan (1) Hypokalemia Problem details: Appears related to poor oral intake chronically. He does explain the EKG abnormality. he remains asymptomatic without angina or CHF. Current visit: Yes Status: Acute DVT Prophylaxis: Lovenox Resuscitation Status: Full Code Assessment and Plan: ASSESSMENT Severe hypokalemia with bradycardia and bigeminy -improved. 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 Very interested to know how much insulin to use to help maintain sugar. 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 IVF stopped this afternoon to see how orthostasis does without fluid support. Unfortunately, seeing more decline now than in previous days. Will start Florinef 0.1mg daily to help decrease orthostasis. Add ProAmatine 2.5mg TID. Continue with metronidazole for C diff - day #8. Encouraged nursing to use Questran to help slow stools. Add Culturelle to see if that help. Anticipate use of insulin at home - educate family on how to draw up and inject insulin. Currently at 6 units with meals. Family would like sliding scale - likely add 1 unit if sugars 180 to 210, 2 units if 211 to 240, 3 units if >241. Potassium with decrease to 3.5 today-will give additional potassium 20mEq with lunch. Recheck BMP in am due to hypokalemia and CBC due to C diff. Case discussed with Nursing and family. Time spent with patient care 25 minutes. - Time spent with patient Time with patient PN: 25 minutes Hospital Course Summary Disclaimer: The visit summary below is not to be considered part of the above Progress Note. 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 Consult Dr. Wilkerson regarding cardiac ectopy. Case discussed with him. NTG paste ordered per attending. Replace K IV + PO. Check Mg. Recheck K this evening. History of urine retention and recent UTI - check UA. Straight cath if retention of 500 mL. Uncontrolled DM - monitor postprandial sugars. Resume diabetic meds. SSI (pt had been on insulin in the past, but chart from [facility] indicated he refused it). Advanced directives: Daughter Emilee is medical DPOA; Full code but wouldn't want life prolonged if there is little chance of recovery - i.e. no feeding tube. Family is aware of wishes. PCP: Dr. Paz. 01/03/[address] [place] [address] case [address] Dr Wilkerson - he states pt is very orthostatic and recommends to stop Aldactone. Will proceed. Sliding scale coverage changed to intermediate dose. BS is above 200 consistently Will resume Glimepiride at 4mg - daily (Was on 8mg/day) Will resume Actos in the AM - Will be cautious with fluid retention. Discussed with family and daycare worker (Silvio - son in law) - and probably pt will be better off with no Actos and Amaryl - will start Lantus and will check a nuclear emptying scan in 2 days. Pt likely has autonomic neuropathy with postural hypotension Cardiology Discontinue nitroglycerin paste due to orthostasis and lack of angina Agree with your management owing serial EKGs and troponins, so far no evidence of acute cardiac syndrome EKG abnormality appears to be related to hypokalemia Discontinue spironolactone and I'm going to hold lisinopril due to orthostasis I recommend taking and treating only standing blood pressure, to prevent orthostatic hypotension and and hopefully prevent falls If orthostasis continues consider addition of Florinef 0.1 mg daily to twice a day Bilateral lower extremity pressure stockings Thank you very much for your consultation we'll follow patient along with you ! 01/04/17 [place] Blood sugars very low with Lantus - Lantus stopped. Looks down and depressed. Psych consult initiated. Potassium elevated to 5.0, increased to 5.3 recheck later this evening. Oral potassium stopped. Psych Dx: MDD, single episode, moderate; delirium Discussed possibly starting Remeron to target mood, sleep and help with appetite. We discussed taking care of medical issues and seeing if confusion improves and then possibly starting Remeron either before discharge or as an outpatient. Family is in agreement with this plan. 01/05/17 [place] Blood sugars still low-oral drive variable. Had loose stool-C diff positive. WBC elevated. Start metronidazole 500mg TID to treat C diff; Questran as needed for loose stools. Routine Miralax stopped. Will stop D5W due to concern to potentially develop hyponatremia. Start D10NS at 50cc/hr. Oral potassium stopped as patient overcorrected. Will need to continue to monitor potassium. Encourage increase in activities - today, only able to sit up at side of bed with therapy. Lantus stopped yesterday evening due to low sugars. Will stop ISS due to concern for hypoglycemia with patient's low oral intake. Will start Miacalcin due to rib fracture. Stop routine [place] due to delirium. Encourage oral intake. 01/06/17 Blood sugars still low. D10 NS increase to 100cc/hr. Blood sugar lowering agents stopped. Oral drive minimal. Okay for outside food. Start Marinol 5mg BID to stimulate appetite. Continue metronidazole 500mg TID to treat C diff; Questran as needed for loose stools. Stool frequency slowing, becoming less watery. Stress the importance of increasing activities. Continue PT/OT. Nursing to ambulate TID with assistance. Discussed with son about IRU - Not in favor of this. Does not feel Dr Ackerman would participate. Does not see anything that would be done there that could not be done at home. Pt's profound weakness a concern for us medically. 01/07/17 Decrease D10NS to 75cc/hr - sugars not as low as prior days. Potassium decrease to 3.7 (hemolysis yesterday) - restart potassium at 20mEq BID. Nursing to help ambulate patient. Orthostatic decreased with positional changes noted. Needs caution with positional change. Metronidazole for C. diff (Day #3). Marinol to stimulate appetite (Day #2). Recheck BMP in am secondary to hypokalemia concern. 01/08/17 Sugars showing elevation - profound hypoglycemia of prior days resolved. IVF changed to D5NS at 50cc/hr Would like try to decrease sugars by decreasing supplement fluid before starting hypoglycemic agents due to recent hypoglycemia. Potassium decrease to 3.5 - increase potassium at 20mEq TID with meals. Continue to work on ambulation and strengthening. Metronidazole for C. diff (Day #4). Questran prn loose stool (so far, not been used). Marinol to stimulate appetite (Day #3). Okay for any home/outside foods as he desires. Will stop omeprazole BID - started during hospitalization. Recheck BMP in am secondary to hypokalemia concern. Will repeat CBC due to C diff. Check Mg in am due to loose stools. 01/09/17 Change to NS at 50cc/hr - sugars elevated. Would still avoid agents to lower sugars due to significant hypoglycemia earlier. Potassium increase to 4.7 - decrease potassium at 20mEq BID with meals. Continue to work on ambulation and strengthening. Metronidazole for C. diff (Day #5). Questran prn loose stool (so far, not been used). 4 stools yesterday - 3 so far today. Marinol to stimulate appetite (Day #4). Okay for any home/outside foods as he desires. Discussed with son about care plans and goals. Son would like patient home as soon as possible. Confusion today concerning-strength and cognition doing so well yesterday. Recheck BMP in am secondary to hypokalemia concern. Will repeat CBC due to C diff. Check Mg in am due to loose stools. 01/10/17 Blood sugars improved. Running in the 180-200 range. Not a bad target goal with his decreased and variable oral drive. Really need to avoid hypoglycemia. Potassium 3.7 this am. Will continue 20mEg BID. Encourage continued activities. Metronidazole for C. diff (Day #6). Questran prn loose stool (so far, not been used). Will have nursing give Questran to help slow stools . Marinol to stimulate appetite (Day #5). Okay for any home/outside foods as he desires. Recheck BMP in am secondary to hypokalemia concern. Will repeat CBC due to C diff. Check Mg in am due to loose stools. With sugars and potassium improving, hope for discharge in near future. 01/11/17 Continue to follow blood sugars. Will is to avoid any further episodes of hypoglycemia. Overall, appetite appears to be improved today. Patient ate 25% of breakfast, however, 100% of lunch. Marinol given for appetite stimulation Continue with metronidazole for treatment of C. difficile. Today is day 7 of treatment. Encourage nursing staff to utilize Questran as needed for loose stools Electrolytes remain normal. Hemoglobin stable, although is low at 8.9. Lovenox subcutaneous daily for DVT prophylaxis Overall doing well. 01/12/17 Discussed patient's case with son this am-he's frustrated that orthostatic vitals not done (rightly so). Very interested to know how much insulin to use to help maintain sugar. 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 IVF stopped this afternoon to see how orthostasis does without fluid support. Unfortunately, seeing more decline now than in previous days. Will start Florinef 0.1mg daily to help decrease orthostasis. Add ProAmatine 2.5mg TID. Continue with metronidazole for C diff - day #8. Encouraged nursing to use Questran to help slow stools. Add Culturelle to see if that help. Anticipate use of insulin at home - educate family on how to draw up and inject insulin. Currently at 6 units with meals. Family would like sliding scale - likely add 1 unit if sugars 180 to 210, 2 units if 211 to 240, 3 units if >241. Potassium with decrease to 3.5 today-will give additional potassium 20mEq with lunch. Recheck BMP in am due to hypokalemia and CBC due to C diff.
[2017-01-12] MEDS: FLUDROCORTISONE 0.1 MG TABLET PO SCH (17:59)
[2017-01-12] MEDS: PRAVASTATIN 40 MG TABLET PO SCH (21:01)
[2017-01-12] MEDS: MIDODRINE 2.5 MG TABLET PO SCH (21:44)
[2017-01-13] MEDS: LEVOTHYROXINE 50 MCG TABLET PO SCH (06:28)
[2017-01-13 07:46] VITALS: TEMP 96.9
[2017-01-13] MEDS: CYANOCOBALAMIN (B-12) 500mcg TABLET PO SCH (08:16)
[2017-01-13] MEDS: DULOXETINE 30 MG CAPSULE PO SCH (08:16)
[2017-01-13] MEDS: FLUDROCORTISONE 0.1 MG TABLET PO SCH (08:17)
[2017-01-13] MEDS: ASPIRIN 81 MG CHEWABLE TABLET PO SCH (08:17)
[2017-01-13] MEDS: MetroNIDAZOLE 500 MG TABLET PO SCH ×2 (08:18→12:54)
[2017-01-13] MEDS: MIDODRINE 2.5 MG TABLET PO SCH ×2 (08:18→12:54)
[2017-01-13] MEDS: LACTOBACILLUS (15B cfu) CAPSULE PO SCH ×2 (08:19→12:53)
[2017-01-13] MEDS: INSULIN ASPART 100unit/ml INJECTION SQ SCH (08:19)
[2017-01-13] MEDS: ENOXAPARIN 40 MG/0.4 ML INJECTION SQ SCH (08:19)
[2017-01-13] MEDS: DRONABINOL 2.5 MG CAPSULE PO SCH (08:21)
[2017-01-13 11:56] VITALS: O2SAT 64
[2017-01-13 11:57] VITALS: BP 110/68
--- NOTE | 2017-01-13 12:20 | Progress Note ---
Subjective: F/U: Hypokalemia, orthostasis, Type II DM Doing better today. Stools less watery, still with urgency. Orthostatic changes noted, but decreased with Florinef and ProAmatine. Not as weak and dizzy when up as earlier this week. Eating much better (still reports decreased appetite and difficult to find something that sounds appealing to him). Breathing well. No f/c. Objective Vital signs: Temperature 96.9 F 01/13/17 07:45 Pulse Rate 101 H 01/13/17 08:00 Respiratory Rate 18 01/13/17 07:45 Blood Pressure 110/68 01/13/17 08:00 Pulse Oximetry 64 L 01/13/17 08:00 Rhythm: Normal Sinus Rhythm Height/Weight/BMI: Height 1.73 m Weight 59.3 kg Body Mass Index 22.1 - Constitutional Present: no acute distress, well nourished, well developed, thin - Routine HEENT Exam Head: Present: normocephalic, atraumatic Eye: Present: EOMI, PERRL ENT: Present: mucous membranes moist - Routine Respiratory Exam Present: CTA bilaterally. Absent: respiratory distress, wheezes, crackles - Routine Cardiovascular Exam Present: RRR, no murmur - Routine Abdominal Exam Present: soft, normoactive bowel sounds, non distended, non tender - Routine Extremities Exam Present: no edema, pulses intact. Absent: cyanosis, clubbing - Routine Musculoskeletal Exam Musculoskeletal: Present: no clubbing or cyanosis - Routine Skin Exam Present: dry, warm - Routine Neurological Exam Present: alert, CN II-XII intact, moving all extremities, vision grossly intact , hearing grossly intact - Routine Psychiatric Exam Present: normal affect, cooperative Results - Labs CBC & Chem 7: 01/13/17 04:14 01/13/17 04:14 Assessment and Plan (1) Hypokalemia Problem details: Appears related to poor oral intake chronically. He does explain the EKG abnormality. he remains asymptomatic without angina or CHF. Current visit: Yes Status: Acute DVT Prophylaxis: Lovenox Resuscitation Status: Full Code Assessment and Plan: ASSESSMENT Severe hypokalemia with bradycardia and bigeminy -improved. 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 Needs to complete metronidazole in the outpatient setting - will have patient take another 24 doses. May continue Culturelle to help stools. Questran as needed for loose stool. Orthostasis addressed with routine Florinef 0.1mg daily and ProAmatine 2.5mg TID. Lisinopril Nitropatch stopped due to orthostasis. Treat only standing blood pressures. Assistance with getting up to decrease risk for falls. Continue Marinol to help appetite. Regular Insulin 7 units with meals Sliding scale - add 1 unit if sugars 180 to 210, 2 units if 211 to 240, 3 units if >241. Potassium 20 mEq TID with meals. Diet will be mech soft as patient tolerated. F/U with Dr Kasper on 01/17/17 as scheduled. Recommend checking BMP secondary to low potassium. See orders for details. Case discussed with Nursing and family. Time spent with patient care and discharge greater than 30 minutes. Hospital Course Summary Disclaimer: The visit summary below is not to be considered part of the above Progress Note. 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 Consult Dr. Wilkerson regarding cardiac ectopy. Case discussed with him. NTG paste ordered per attending. Replace K IV + PO. Check Mg. Recheck K this evening. History of urine retention and recent UTI - check UA. Straight cath if retention of 500 mL. Uncontrolled DM - monitor postprandial sugars. Resume diabetic meds. SSI (pt had been on insulin in the past, but chart from [facility] indicated he refused it). Advanced directives: Daughter Emilee is medical DPOA; Full code but wouldn't want life prolonged if there is little chance of recovery - i.e. no feeding tube. Family is aware of wishes. PCP: Dr. Paz. 01/03/17 [place] Discussed case with Dr Wilkerson - he states pt is very orthostatic and recommends to stop Aldactone. Will proceed. Sliding scale coverage changed to intermediate dose. BS is above 200 consistently Will resume Glimepiride at 4mg - daily (Was on 8mg/day) Will resume Actos in the AM - Will be cautious with fluid retention. Discussed with family and personal care worker (Silvio - son in law) - and probably pt will be better off with no Actos and Amaryl - will start Lantus and will check a nuclear emptying scan in 2 days. Pt likely has autonomic neuropathy with postural hypotension Cardiology Discontinue nitroglycerin paste due to orthostasis and lack of angina Agree with your management owing serial EKGs and troponins, so far no evidence of acute cardiac syndrome EKG abnormality appears to be related to hypokalemia Discontinue spironolactone and I'm going to hold lisinopril due to orthostasis I recommend taking and treating only standing blood pressure, to prevent orthostatic hypotension and and hopefully prevent falls If orthostasis continues consider addition of Florinef 0.1 mg daily to twice a day Bilateral lower extremity pressure stockings Thank you very much for your consultation we'll follow patient along with you ! 01/04/17 [place] Blood sugars very low with Lantus - Lantus stopped. Looks down and depressed. Psych consult initiated. Potassium elevated to 5.0, increased to 5.3 recheck later this evening. Oral potassium stopped. Psych Dx: MDD, single episode, moderate; delirium Discussed possibly starting Remeron to target mood, sleep and help with appetite. We discussed taking care of medical issues and seeing if confusion improves and then possibly starting Remeron either before discharge or as an outpatient. Family is in agreement with this plan. 01/05/17 [place] Blood sugars still low-oral drive variable. Had loose stool-C diff positive. WBC elevated. Start metronidazole 500mg TID to treat C diff; Questran as needed for loose stools. Routine Miralax stopped. Will stop D5W due to concern to potentially develop hyponatremia. Start D10NS at 50cc/hr. Oral potassium stopped as patient overcorrected. Will need to continue to monitor potassium. Encourage increase in activities - today, only able to sit up at side of bed with therapy. Lantus stopped yesterday evening due to low sugars. Will stop ISS due to concern for hypoglycemia with patient's low oral intake. Will start Miacalcin due to rib fracture. Stop routine [place] due to delirium. Encourage oral intake. 01/06/17 Blood sugars still low. D10 NS increase to 100cc/hr. Blood sugar lowering agents stopped. Oral drive minimal. Okay for outside food. Start Marinol 5mg BID to stimulate appetite. Continue metronidazole 500mg TID to treat C diff; Questran as needed for loose stools. Stool frequency slowing, becoming less watery. Stress the importance of increasing activities. Continue PT/OT. Nursing to ambulate TID with assistance. Discussed with son about IRU - Not in favor of this. Does not feel Dr Ackerman would participate. Does not see anything that would be done there that could not be done at home. Pt's profound weakness a concern for us medically. 01/07/17 Decrease D10NS to 75cc/hr - sugars not as low as prior days. Potassium decrease to 3.7 (hemolysis yesterday) - restart potassium at 20mEq BID. Nursing to help ambulate patient. Orthostatic decreased with positional changes noted. Needs caution with positional change. Metronidazole for C. diff (Day #3). Marinol to stimulate appetite (Day #2). Recheck BMP in am secondary to hypokalemia concern. 01/08/17 Sugars showing elevation - profound hypoglycemia of prior days resolved. IVF changed to D5NS at 50cc/hr Would like try to decrease sugars by decreasing supplement fluid before starting hypoglycemic agents due to recent hypoglycemia. Potassium decrease to 3.5 - increase potassium at 20mEq TID with meals. Continue to work on ambulation and strengthening. Metronidazole for C. diff (Day #4). Questran prn loose stool (so far, not been used). Marinol to stimulate appetite (Day #3). Okay for any home/outside foods as he desires. Will stop omeprazole BID - started during hospitalization. Recheck BMP in am secondary to hypokalemia concern. Will repeat CBC due to C diff. Check Mg in am due to loose stools. 01/09/17 Change to NS at 50cc/hr - sugars elevated. Would still avoid agents to lower sugars due to significant hypoglycemia earlier. Potassium increase to 4.7 - decrease potassium at 20mEq BID with meals. Continue to work on ambulation and strengthening. Metronidazole for C. diff (Day #5). Questran prn loose stool (so far, not been used). 4 stools yesterday - 3 so far today. Marinol to stimulate appetite (Day #4). Okay for any home/outside foods as he desires. Discussed with son about care plans and goals. Son would like patient home as soon as possible. Confusion today concerning-strength and cognition doing so well yesterday. Recheck BMP in am secondary to hypokalemia concern. Will repeat CBC due to C diff. Check Mg in am due to loose stools. 01/10/17 Blood sugars improved. Running in the 180-200 range. Not a bad target goal with his decreased and variable oral drive. Really need to avoid hypoglycemia. Potassium 3.7 this am. Will continue 20mEg BID. Encourage continued activities. Metronidazole for C. diff (Day #6). Questran prn loose stool (so far, not been used). Will have nursing give Questran to help slow stools . Marinol to stimulate appetite (Day #5). Okay for any home/outside foods as he desires. Recheck BMP in am secondary to hypokalemia concern. Will repeat CBC due to C diff. Check Mg in am due to loose stools. With sugars and potassium improving, hope for discharge in near future. 01/11/17 Continue to follow blood sugars. Will is to avoid any further episodes of hypoglycemia. Overall, appetite appears to be improved today. Patient ate 25% of breakfast, however, 100% of lunch. Marinol given for appetite stimulation Continue with metronidazole for treatment of C. difficile. Today is day 7 of treatment. Encourage nursing staff to utilize Questran as needed for loose stools Electrolytes remain normal. Hemoglobin stable, although is low at 8.9. Lovenox subcutaneous daily for DVT prophylaxis Overall doing well. 01/12/17 Discussed patient's case with son this am-he's frustrated that orthostatic vitals not done (rightly so). Very interested to know how much insulin to use to help maintain sugar. 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 IVF stopped this afternoon to see how orthostasis does without fluid support. Unfortunately, seeing more decline now than in previous days. Will start Florinef 0.1mg daily to help decrease orthostasis. Add ProAmatine 2.5mg TID. Continue with metronidazole for C diff - day #8. Encouraged nursing to use Questran to help slow stools. Add Culturelle to see if that help. Anticipate use of insulin at home - educate family on how to draw up and inject insulin. Currently at 6 units with meals. Family would like sliding scale - likely add 1 unit if sugars 180 to 210, 2 units if 211 to 240, 3 units if >241. Potassium with decrease to 3.5 today-will give additional potassium 20mEq with lunch. Recheck BMP in am due to hypokalemia and CBC due to C diff. 01/13/17 Will discharge to home. Needs to complete metronidazole in the outpatient setting - will have patient take another 24 doses. May continue Culturelle to help stools. Questran as needed for loose stool. Orthostasis addressed with routine Florinef 0.1mg daily and ProAmatine 2.5mg TID. Lisinopril Nitropatch stopped due to orthostasis. Treat only standing blood pressures. Assistance with getting up to decrease risk for falls. Continue Marinol to help appetite. Regular Insulin 7 units with meals Sliding scale - add 1 unit if sugars 180 to 210, 2 units if 211 to 240, 3 units if >241. Potassium 20 mEq TID with meals. Diet will be mech soft as patient tolerated. F/U with Dr Kasper on 01/17/17 as scheduled. Recommend checking BMP secondary to low potassium. See orders for details.
[2017-01-13] MEDS ORDERED: INSULIN REGULAR, HUMAN 100 UNIT/ML INJECTION SQ ONE (12:32)
--- NOTE | 2017-01-13 12:37 | Discharge Summary ---
Discharge Information Date of admission: 01/02/17 16:56 Anticipated date of discharge: 01/13/17 Attending Physician: Cyrus Kirkpatrick MD Primary care physician: Chantel Paz DO Consults: Physician Consult: Alli Wilkerson Reason For Exam: bigeminy Physician Consult: Estevan Chairez Reason For Exam: depression; poss reduced mental capacity PT/OT - Discharge Diagnosis (1) Hypokalemia Status: Acute Discharge Diagnosis: Discharge diagnosis Severe hypokalemia with bradycardia and bigeminy -improved. 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 - no longer on antiepileptic (was on Vimpat) Type 2 DM, A1c was 8.3% on 01/04/17 Diabetic peripheral neuropathy Hypothyroidism - TSH was 0.96 on 12/14/16 Dyslipidemia Moderate PCM Anorexia Nondisplaced left lateral 10th rib fracture Gen debility with significant functional decline Prostate cancer - S/P radiation around 2006 MDD, single episode, moderate Delirium - resolved - Laboratory Labs: Admit Lab 01/02/17 14:24 WBC 6.3 Hgb 10.4 L Hct 32.6 L MCV 90.1 MCH 28.7 Plt Count 167 Neut % (Auto) 79.1 H Lymph % (Auto) 15.0 L Admit Lab 01/02/17 14:24 Sodium 143 Potassium 2.0 L* Chloride 92 L Carbon Dioxide 41 H* Anion Gap 10 BUN 14.0 Creatinine 1.0 GFR Calculation 72 BUN/Creatinine Ratio 14 Glucose 254 H Calculated Osmolality 285 H Total Bilirubin 1.30 AST 20 ALT 27 Troponin I 0.068 Other Lab 01/02/17 01/02/17 14:24 18:04 Renin <0.6 Aldosterone Baseline <4.0 TSH 1.37 Other Lab 01/04/17 01/04/17 03:53 03:53 Triglycerides 123 Cholesterol 96 L LDL Cholesterol, Calc 44.4 L VLDL Cholesterol 24.6 HDL Cholesterol 27 L Cholesterol/HDL Ratio 3.6 Vitamin B12 > 1000 H Other Lab 01/04/17 03:53 Hemoglobin A1c 8.3 H Discharge Lab 01/13/17 04:14 01/13/17 04:14 - Radiology Radiology: Date of Exam: 01/02/17 EXAM: CT head/brain wo con IMPRESSION: 1. No acute intracranial process identified by CT. 2. Age appropriate cerebral volume loss and mild chronic small vessel ischemic disease. 3. Likely chronic left sphenoid sinus disease. Date of Exam: 01/02/17 Procedure: XR ribs LT min 3V w CXR1V Impression: Nondisplaced lateral left 10th rib fracture with no pneumothorax or pleural effusion identified. Date of Exam: 01/04/17 PROCEDURE: CHEST 2-VIEWS UPRIGHT (PA & LAT) FINDINGS: Lungs are stable and grossly clear. No pleural effusion or pneumothorax. No visible change from the recent comparison study. Cardiomediastinal contours and pulmonary vascularity are unchanged. Impression: Stable chest. History of Present Illness HPI: Riccardo Ackerman is an 81 year old male who was taken to [facility] for weakness and falling. Apparently over the last several months, he's had issues with weakness and falling - in more detail, however, he describes near-syncope/syncope, especially when he changes positions (i.e. bends down to pull his pants up). It most frequently occurs after urinating, but he reports feeling lightheaded/dizzy , like he's going to black out, when he changes positions doing other activities as well. He was admitted to [facility] in May, 2016 for stroke like symptoms. MRI at that time was negative for stroke, but neurology felt that he was having complex partial seizures and started him on Vimpat (which he's no longer taking for 2 reasons - first it was too expensive and second they didn't feel that he was having seizures - never had a witnessed one). After this hospitalization he lived with his daughter and son-in-law for about a month and then moved back home. However, family noticed increased weakness for about the last month, and recently took his keys away because they don't feel safe with him driving. He doesn't have a regular dietary intake and eats at odd times of the day - family also state that when they checked on him today he told them he hadn't eaten anything for 3 days (which he then denied to me). He has been trying to lose weight b/c his former PCP told him that if he lost 40 lbs he would no longer be diabetic, so over the last 6-7 months he's gone from 180 lbs to 140 lbs (but is still diabetic). His sugars typically range between 200-250 ( hgb A1c was 9.3% on 12/14/16). He also admits that he occasionally forgets to take his home meds, but this isn't too often. He has diabetic peripheral neuropathy to both feet but otherwise denies any paresthesias. No unilateral weakness, dysphagia, or choking. His son-in-law reports slurring of speech when he's dizzy, but overall denies any mental status changes other than occasional forgetfulness. He finished a course of abx for UTI last week, but doesn't get UTIs that often, despite having difficulty starting his stream of urine and difficulty emptying his bladder. He denies chest pain, palpitations, dyspnea, or recent leg swelling. He hasn't been sleeping well recently - has nocturia ( which was worse when he had the UTI). He denies any abdominal pain, nausea/ vomiting, constipation, or diarrhea. In the ED he was found to be profoundly hypokalemic with a level of 2.0. In addition, his palpated HR initially was in the 20s. By the time he was placed on the monitor it had improved into the 50-60s. However, during this interview his rhythm changed to bigeminy with a perfusing rate in the 30s - he remained asymptomatic and this resolved prior to transfer to the CCU. His BP increased greatly to 215/90s after hospital admission was recommended. CBC was unremarkable except for mild normocytic anemia (which is chronic). CT head was negative for acute findings. He was given PO and IV K bolus and admitted to the hospitalist service as an inpatient for electrolyte replacement and cardiac irritability with underlying CAD and DM. For complete details of the H&P refer to that document. Objective Vital signs: Temperature 96.9 F 01/13/17 07:45 Pulse Rate 101 H 01/13/17 08:00 Respiratory Rate 18 01/13/17 07:45 Blood Pressure 110/68 01/13/17 08:00 Pulse Oximetry 64 L 01/13/17 08:00 Rhythm: Normal Sinus Rhythm Height/Weight/BMI: Height 1.73 m Weight 59.3 kg Body Mass Index 22.1 Hospital Course This is a general summary of the patient's hospital course. For more details refer to the complete medical record. 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 Consult Dr. Wilkerson regarding cardiac ectopy. Case discussed with him. NTG paste ordered per attending. Replace K IV + PO. Check Mg. Recheck K this evening. History of urine retention and recent UTI - check UA. Straight cath if retention of 500 mL. Uncontrolled DM - monitor postprandial sugars. Resume diabetic meds. SSI (pt had been on insulin in the past, but chart from [facility] indicated he refused it). Advanced directives: Daughter Emilee is medical DPOA; Full code but wouldn't want life prolonged if there is little chance of recovery - i.e. no feeding tube. Family is aware of wishes. PCP: Dr. Paz. 01/03/[address] [place] [address] Dr Wilkerson - he states pt is very orthostatic and recommends to stop Aldactone. Will proceed. Sliding scale coverage changed to intermediate dose. BS is above 200 consistently Will resume Glimepiride at 4mg - daily (Was on 8mg/day) Will resume Actos in the AM - Will be cautious with fluid retention. Discussed with family and healthcare financial analyst (Silvio - son in law) - and probably pt will be better off with no Actos and Amaryl - will start Lantus and will check a nuclear emptying scan in 2 days. Pt likely has autonomic neuropathy with postural hypotension Cardiology Discontinue nitroglycerin paste due to orthostasis and lack of angina Agree with your management owing serial EKGs and troponins, so far no evidence of acute cardiac syndrome EKG abnormality appears to be related to hypokalemia Discontinue spironolactone and I'm going to hold lisinopril due to orthostasis I recommend taking and treating only standing blood pressure, to prevent orthostatic hypotension and and hopefully prevent falls If orthostasis continues consider addition of Florinef 0.1 mg daily to twice a day Bilateral lower extremity pressure stockings Thank you very much for your consultation we'll follow patient along with you ! 01/04/17 [place] Blood sugars very low with Lantus - Lantus stopped. Looks down and depressed. Psych consult initiated. Potassium elevated to 5.0, increased to 5.3 recheck later this evening. Oral potassium stopped. Psych Dx: MDD, single episode, moderate; delirium Discussed possibly starting Remeron to target mood, sleep and help with appetite. We discussed taking care of medical issues and seeing if confusion improves and then possibly starting Remeron either before discharge or as an outpatient. Family is in agreement with this plan. 01/05/17 [place] Blood sugars still low-oral drive variable. Had loose stool-C diff positive. WBC elevated. Start metronidazole 500mg TID to treat C diff; Questran as needed for loose stools. Routine Miralax stopped. Will stop D5W due to concern to potentially develop hyponatremia. Start D10NS at 50cc/hr. Oral potassium stopped as patient overcorrected. Will need to continue to monitor potassium. Encourage increase in activities - today, only able to sit up at side of bed with therapy. Lantus stopped yesterday evening due to low sugars. Will stop ISS due to concern for hypoglycemia with patient's low oral intake. Will start Miacalcin due to rib fracture. Stop routine [place] due to delirium. Encourage oral intake. 01/06/17 Blood sugars still low. D10 NS increase to 100cc/hr. Blood sugar lowering agents stopped. Oral drive minimal. Okay for outside food. Start Marinol 5mg BID to stimulate appetite. Continue metronidazole 500mg TID to treat C diff; Questran as needed for loose stools. Stool frequency slowing, becoming less watery. Stress the importance of increasing activities. Continue PT/OT. Nursing to ambulate TID with assistance. Discussed with son about IRU - Not in favor of this. Does not feel Dr Ackerman would participate. Does not see anything that would be done there that could not be done at home. Pt's profound weakness a concern for us medically. 01/07/17 Decrease D10NS to 75cc/hr - sugars not as low as prior days. Potassium decrease to 3.7 (hemolysis yesterday) - restart potassium at 20mEq BID. Nursing to help ambulate patient. Orthostatic decreased with positional changes noted. Needs caution with positional change. Metronidazole for C. diff (Day #3). Marinol to stimulate appetite (Day #2). Recheck BMP in am secondary to hypokalemia concern. 01/08/17 Sugars showing elevation - profound hypoglycemia of prior days resolved. IVF changed to D5NS at 50cc/hr Would like try to decrease sugars by decreasing supplement fluid before starting hypoglycemic agents due to recent hypoglycemia. Potassium decrease to 3.5 - increase potassium at 20mEq TID with meals. Continue to work on ambulation and strengthening. Metronidazole for C. diff (Day #4). Questran prn loose stool (so far, not been used). Marinol to stimulate appetite (Day #3). Okay for any home/outside foods as he desires. Will stop omeprazole BID - started during hospitalization. Recheck BMP in am secondary to hypokalemia concern. Will repeat CBC due to C diff. Check Mg in am due to loose stools. 01/09/17 Change to NS at 50cc/hr - sugars elevated. Would still avoid agents to lower sugars due to significant hypoglycemia earlier. Potassium increase to 4.7 - decrease potassium at 20mEq BID with meals. Continue to work on ambulation and strengthening. Metronidazole for C. diff (Day #5). Questran prn loose stool (so far, not been used). 4 stools yesterday - 3 so far today. Marinol to stimulate appetite (Day #4). Okay for any home/outside foods as he desires. Discussed with son about care plans and goals. Son would like patient home as soon as possible. Confusion today concerning-strength and cognition doing so well yesterday. Recheck BMP in am secondary to hypokalemia concern. Will repeat CBC due to C diff. Check Mg in am due to loose stools. 01/10/17 Blood sugars improved. Running in the 180-200 range. Not a bad target goal with his decreased and variable oral drive. Really need to avoid hypoglycemia. Potassium 3.7 this am. Will continue 20mEg BID. Encourage continued activities. Metronidazole for C. diff (Day #6). Questran prn loose stool (so far, not been used). Will have nursing give Questran to help slow stools . Marinol to stimulate appetite (Day #5). Okay for any home/outside foods as he desires. Recheck BMP in am secondary to hypokalemia concern. Will repeat CBC due to C diff. Check Mg in am due to loose stools. With sugars and potassium improving, hope for discharge in near future. 01/11/17 Continue to follow blood sugars. Will is to avoid any further episodes of hypoglycemia. Overall, appetite appears to be improved today. Patient ate 25% of breakfast, however, 100% of lunch. Marinol given for appetite stimulation Continue with metronidazole for treatment of C. difficile. Today is day 7 of treatment. Encourage nursing staff to utilize Questran as needed for loose stools Electrolytes remain normal. Hemoglobin stable, although is low at 8.9. Lovenox subcutaneous daily for DVT prophylaxis Overall doing well. 01/12/17 Discussed patient's case with son this am-he's frustrated that orthostatic vitals not done (rightly so). Very interested to know how much insulin to use to help maintain sugar. 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 IVF stopped this afternoon to see how orthostasis does without fluid support. Unfortunately, seeing more decline now than in previous days. Will start Florinef 0.1mg daily to help decrease orthostasis. Add ProAmatine 2.5mg TID. Continue with metronidazole for C diff - day #8. Encouraged nursing to use Questran to help slow stools. Add Culturelle to see if that help. Anticipate use of insulin at home - educate family on how to draw up and inject insulin. Currently at 6 units with meals. Family would like sliding scale - likely add 1 unit if sugars 180 to 210, 2 units if 211 to 240, 3 units if >241. Potassium with decrease to 3.5 today-will give additional potassium 20mEq with lunch. Recheck BMP in am due to hypokalemia and CBC due to C diff. 9/29/17 Will discharge to home. Needs to complete metronidazole in the outpatient setting - will have patient take another 24 doses. May continue Culturelle to help stools. Questran as needed for loose stool. Orthostasis addressed with routine Florinef 0.1mg daily and ProAmatine 2.5mg TID. Lisinopril and Nitropatch stopped due to orthostasis. Treat only standing blood pressures. Assistance with getting up to decrease risk for falls. Continue Marinol to help appetite. Regular Insulin 7 units with meals Sliding scale - add 1 unit if sugars 180 to 210, 2 units if 211 to 240, 3 units if >241. Potassium 20 mEq TID with meals. Using Miacalcin nasal spray during hospital to help decrease pain from rib fracture. Pain essentially resolved. May take bottle home and finish, but do not feel he needs this detention. Diet will be mech soft as patient tolerated. F/U with Dr Kasper on 01/17/17 as scheduled. Recommend checking BMP secondary to low potassium. See orders for details. Time spent with patient: discharge greater than 30 minutes DVT Prophylaxis: Lovenox Discharge Plan - Med Rec/Dispo Referrals/Follow Up: Chantel Paz DO [Family Provider] - (Has Apt scheduled on 01/17/17. Recommend checking BMP secondary to hypokalemia ) [place] Instructions: Hypokalemia (GEN), Bradycardia (GEN) Prescriptions: New Acidoph/L.bulg/Bif.b/S.thermop [Bacid Caplet] 2 cap PO TIDWM tablet Calcitonin Nasal [place] [Miacalcin [place]] 1 spray NS DAILY bottle Dronabinol [Marinol] 5 mg PO BID #60 cap Fludrocortisone [Florinef] 0.1 mg PO DAILY #30 tab MetroNIDAZOLE [Flagyl] 500 mg PO TIDWM #24 tab Midodrine [Proamatine] 2.5 mg PO 0700,1100,1500 #90 tab Potassium Chloride [K-Dur] 20 meq PO TIDWM #90 tab Acetaminophen [Tylenol] 325 - 650 mg PO Q5H PRN tablet PRN Reason: Discomfort Cholestyramine/Aspartame [Cholestyramine Light Packet] 4 g PO Q6H PRN #1 bottle PRN Reason: Diarrhea Insulin Regular, Human [Novolin R] 7 unit SQ TIDWM #1 vial Continue Cyanocobalamin (Vitamin B-12) [Vitamin B-12] 1,000 mcg PO DAILY #0 tab Levothyroxine Sodium 50 mcg PO ACB #30 tab Aspirin 81 mg PO DAILY Duloxetine [Cymbalta] 90 mg PO DAILY Pravastatin Sodium 80 mg PO HS Coenzyme Q-10 [Co Q-10] 200 mg PO DAILY Discontinued Glimepiride [Amaryl] 8 mg PO WB Meclizine HCl 12.5 mg PO TID PRN PRN Reason: Dizziness Pioglitazone [Actos] 30 mg PO DAILY Lisinopril [Prinivil] 10 mg PO DAILY Discharge Instructions/Outpatient Orders: Final Provider Discharge Instructions Location: Determined By Patient - Disposition [address] [place] [address] Service - Attestation Attestation Narrative: 01/13/17 13:04 I have independently interviewed and examined patient prior to discharge. See my progress not for details. Case discussed with patient's son and daughter. Medically stable for discharge to home with family support and HH.
[2017-01-13] MEDS: CALCITONIN NASAL SPRAY 3.7ml NS SCH (12:56)
[2017-01-13 15:45] VITALS: PULSE 80
[2017-01-13] MEDS ORDERED: MIDODRINE 2.5 MG TABLET PO SCH (17:00)
== END 2017-01-13 15:20 | disposition home health service (06) | DRG 641 ==
LOC: ED 12:20 → CCU 16:56 → MED 01-03 19:55
PROVIDERS: ADMIT Internal Medicine; ATTEND Hospitalist

== ENCOUNTER 2017-01-25 20:53 | Inpatient (IN) ==
--- NOTE | 2017-01-25 21:24 | Emergency Department Report ---
Altered Mental Status HPI - General Chief Complaint: Altered Mental Status Stated Complaint: Lethargic,vomiting,disoriented Time Seen by Provider: 01/25/17 21:03 Source: family Mode of arrival: wheelchair Limitations: altered mental status - History of Present Illness HPI narrative: Son brings pt to ER stating at about 1700 pt was alert and verbal and when he later returned at 1800 pt could do no more than make grunting sounds and could not stand on his own. Pt was recently an inpatient at this facility for a rib fracture, hyperkalemia, and c diff. Son reports pt does have a CVA history of several years ago. MD complaint: altered mental status, decreased responsiveness Onset (ago): hour(s) Timing confirmed by: family member Severity: moderate Consistency of symptoms: constant Context: unknown - Related Data Home Medications Medication Instructions Recorded Confirmed Cyanocobalamin (Vitamin B-12) 1,000 mcg PO DAILY #0 tab 05/04/16 01/25/17 [Vitamin B-12] Aspirin 81 mg PO DAILY 01/02/17 01/25/17 Coenzyme Q-10 [Co Q-10] 200 mg PO DAILY 01/02/17 01/25/17 Duloxetine [Cymbalta] 90 mg PO DAILY 01/02/17 01/25/17 Pravastatin Sodium 80 mg PO HS 01/02/17 01/25/17 Insulin Regular, Human [Novolin R] 10 unit SQ TIDWM 01/25/17 01/25/17 Previous Rx's Medication Instructions Recorded Levothyroxine Sodium 50 mcg PO ACB #30 tab 05/09/16 Acetaminophen [Tylenol] 325 - 650 mg PO Q5H PRN tablet 01/13/17 Acidoph/L.bulg/Bif.b/S.thermop 2 cap PO TIDWM tablet 01/13/17 [Bacid Caplet] Calcitonin Nasal [place] [Miacalcin 1 spray NS DAILY bottle 01/13/17 [place]] Dronabinol [Marinol] 5 mg PO BID #60 cap 01/13/17 Fludrocortisone [Florinef] 0.1 mg PO DAILY #30 tab 01/13/17 Midodrine [Proamatine] 2.5 mg PO 0700,1100,1500 #90 tab 01/13/17 Potassium Chloride [K-Dur] 20 meq PO TIDWM #90 tab 01/13/17 Allergies Allergy/AdvReac Type Severity Reaction Status Date / Time hydrochlorothiazide Allergy Intermediate SWELLING Verified 01/25/17 22:40 Penicillins Allergy Unknown Verified 01/25/17 22:40 losartan potassium Allergy Intermediate SWELLING Uncoded 01/25/17 22:40 pioglitazone HCl Allergy Mild FLUID Uncoded 01/25/17 22:40 RETENTION midazolam HCl Allergy Unknown Uncoded 01/25/17 22:40 Review of Systems Limitations: ROS unobtainable due to patient's medical condition PFS Patient Stated Medical History Cataracts Yes Coronary Artery Disease Yes Hypertension Yes Diabetes Mellitus Type 2 Yes Hx Urinary Tract Infection Yes Surgical History: CABG 4 in 2010. Previous coronary stents 2 at proceeded his CABG no previous IA - Social History Current residence: Apartment/Private Home Physical Exam - Limitations Limitations: altered mental status - General General appearance: in no apparent distress - Normal Exams: Eyes:: Pupils are PERRLA w/ EOMI Neck:: Full range of motion, without adenopathy Chest/Respirations:: Clear all brewer, with good airflow, and symmetry bilaterally Cardiovascular:: Regular rate and rhythm, without murmur or gallop, Pulses 2+ all extremities Abdomen:: Bowel sounds positive, soft, non-tender, non-distended Musculoskeletal:: No tenderness, or deformity noted, good range of motion, all extremities Integumentary:: No rashes - Expanded Neurological Exam Patient oriented to: Present: person (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 Absent: place, time Speech: Present: expressive aphasia Cerebellar function: ataxic gait Course Vital Signs Temperature 98.7 F 01/25/17 20:55 Pulse Rate 104 H 01/25/17 20:55 Respiratory Rate 16 01/25/17 20:55 Blood Pressure 190/112 H 01/25/17 20:55 Pulse Oximetry 100 01/25/17 20:55 Temperature 98.7 F 01/25/17 20:55 Pulse Rate 104 H 01/25/17 20:55 Respiratory Rate 16 01/25/17 20:55 Blood Pressure 190/112 H 01/25/17 20:55 Pulse Oximetry 100 01/25/17 20:55 Altered Mental Status - MDM Narrative Medical decision making narrative: Labs, EKG, CT, and CXR reviewed. Findings discussed with pts son. Pt to be admitted and then son will want to take him home to care for him. Pt has had no change in verbal or motor abilities since arrival. Pt mumbling to himself and not interactive with environment. There is no obvious cause for leukocytosis. Admission per Dr Snyder - Differential Diagnosis Likely: altered mental status, delirium, dementia, hyponatremia, subarachnoid hemorrhage - Lab Data Attestation: I reviewed the patient's lab results. Result diagrams: 01/25/17 21:44 01/25/17 21:44 - Radiology Data Attestation: I reviewed the patient's radiology results. Disposition Clinical Impression: Altered mental status Qualifiers: Altered mental status type: delirium Qualified Code(s): R41.0 - Disorientation , unspecified Leukocytosis Qualifiers: Leukocytosis type: unspecified Qualified Code(s): D72.829 - Elevated white blood cell count, unspecified [place]position: [place] [facility] Condition: Stable Prescriptions: Continue Cyanocobalamin (Vitamin B-12) [Vitamin B-12] 1,000 mcg PO DAILY #0 tab Levothyroxine Sodium 50 mcg PO ACB #30 tab Aspirin 81 mg PO DAILY Duloxetine [Cymbalta] 90 mg PO DAILY Pravastatin Sodium 80 mg PO HS Coenzyme Q-10 [Co Q-10] 200 mg PO DAILY Acidoph/L.bulg/Bif.b/S.thermop [Bacid Caplet] 2 cap PO TIDWM tablet Calcitonin Nasal [place] [Miacalcin [place]] 1 spray NS DAILY bottle Dronabinol [Marinol] 5 mg PO BID #60 cap Fludrocortisone [Florinef] 0.1 mg PO DAILY #30 tab Midodrine [Proamatine] 2.5 mg PO 0700,1100,1500 #90 tab Potassium Chloride [K-Dur] 20 meq PO TIDWM #90 tab Acetaminophen [Tylenol] 325 - 650 mg PO Q5H PRN tablet PRN Reason: Discomfort Insulin Regular, Human [Novolin R] 10 unit SQ TIDWM Referrals: Chantel Paz DO [Family Provider] - Time of Disposition: 23:16 - Seen By: midlevel
[2017-01-25] MEDS: SALINE FLUSH 10ml SYRINGE IVF PRN (21:38)
[2017-01-26] MEDS ORDERED: Bisacodyl EC TAB 5 MG TABLET PO PRN (02:11)
[2017-01-26] MEDS ORDERED: ONDANSETRON 4 MG/2 ML INJECTION IVP PRN (02:11)
--- NOTE | 2017-01-26 02:23 | History & Physical Report ---
<Jamarcus Snyder I - Last Filed: 01/26/17 02:18> History of Present Illness Date: 01/26/17 Chief complaint: Altered Mental Status, R side weak HPI: Lorie is a pleasant 81 year old R hand dominant man who lives with his son, who provides the history that he seemed a little disoriented about 5 pm but was easily reoriented at that time. His son took his daughter to a soccer game, and when he returned an hour or so later, he found Lorie very confused, unable to speak, and not moving his R side very well. He was brought to the ER where initial workup was unremarkable except for ongoing expressive aphasia (save a couple of words), and RUE and RLE weakness. CT brain was WNL. It was felt he was outside the window for TPA considerations. He took all of his home medications this morning including aspirin and statin. He had a recent hospitalizaiton for C. Diff colitis, and just finished his flagyl this Monday. His son related that he has complained of "feeling like crap" since he left the hospital about two weeks ago, but tonight was a dramatic departure from his baseline which is ambulatory and modified independant. 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 Absent: chills, headache(s) - EENMT Eyes: Absent: change in vision Mouth/Throat: Absent: changes in swallowing - Cardiovascular Cardiovascular: Absent: chest pain, palpitations, syncope, dyspnea on exertion - Respiratory Respiratory: Absent: cough, dyspnea - Gastrointestinal Gastrointestinal: Present: vomiting (He did vomit since arrival to the ER). Absent: abdominal pain [facility] Patient Stated Medical History Cerebrovascular Accident Yes Cataracts Yes Coronary Artery Disease Yes Hypertension Yes Diabetes Mellitus Type 2 Yes Hx Urinary Tract Infection Yes Clostridium Difficile Yes Depression Yes Surgical History: CABG 4 in 2010. Previous coronary stents 2 at proceeded his CABG no previous MS - Social History Smoking status: Never smoker Medications Home Medications Medication Instructions Recorded Confirmed Type Cyanocobalamin (Vitamin B-12) 1,000 mcg PO DAILY #0 tab 05/04/16 01/25/17 History [Vitamin B-12] Aspirin 81 mg PO DAILY 01/02/17 01/25/17 History Coenzyme Q-10 [Co Q-10] 200 mg PO DAILY 01/02/17 01/25/17 History Duloxetine [Cymbalta] 90 mg PO DAILY 01/02/17 01/25/17 History Pravastatin Sodium 80 mg PO HS 01/02/17 01/25/17 History Insulin Regular, Human [Novolin R] 10 unit SQ TIDWM 01/25/17 01/25/17 History Allergies Allergy/AdvReac Type Severity Reaction Status Date / Time hydrochlorothiazide Allergy Intermediate SWELLING Verified 01/25/17 22:40 Penicillins Allergy Unknown Verified 01/25/17 22:40 losartan potassium Allergy Intermediate SWELLING Uncoded 01/25/17 22:40 pioglitazone HCl Allergy Mild FLUID Uncoded 01/25/17 22:40 RETENTION midazolam HCl Allergy Unknown Uncoded 01/25/17 22:40 Exam Vital Signs: Temperature 98.2 F 01/25/17 23:00 Pulse Rate 104 H 01/26/17 00:52 Respiratory Rate 18 01/26/17 00:52 Blood Pressure 190/100 H 01/26/17 00:52 Pulse Oximetry 97 01/26/17 00:52 Telemetry Rhythm: Sinus Rhythm - Constitutional Present: no acute distress - Routine HEENT Exam Head: Present: normocephalic, atraumatic Eye: Present: EOMI ENT: Present: mucous membranes moist - Routine Neck Exam Present: supple - Routine Cardiovascular Exam Present: RRR, no murmur - Routine Abdominal Exam Present: soft, normoactive bowel sounds. Absent: tenderness - Routine Extremities Exam Absent: cyanosis, clubbing, edema - Routine Skin Exam Present: intact. Absent: rash - Routine Neurological Exam Present: alert. Absent: oriented X3 Detailed examination limited but he seems to have a fairly dense aphasia, saying "yeah" to almost all queries. He did not reliably follow commands, suggesting receptive deficit as well, though he seemed responsive to other aspects in the conversation (for example, when his son suggested he was stubborn he turned and looked at him and made a dismissive verbal sound). 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 RLE also appears much weaker as compared to the L. - Routine Psychiatric Exam Present: unable to assess - Additional findings Additional findings: examination performed using telemedicine equipment with the assistance of the bedside nurse Results - Labs CBC & Chem 7: 01/25/17 21:44 01/25/17 21:44 - Imaging and Cardiology CT scan - head Additional comments: reported to show an old scar, no acute changes Assessment and Plan (1) Delirium Problem details: Suspect Current visit: No Status: Acute 01/26/17 02:33 Maximize environmental cues (2) CAD (coronary artery disease) Current visit: No Status: Acute 01/26/17 02:34 continue home regimen (3) CVA (cerebral vascular accident) Current visit: Yes Status: Acute he is admitted to telemetry for serial neurologic examination. He is already on baby dose aspirin, will graduate to full strength aspirin in the morning if he passes bedside swallow examination. We will have physical occupational and speech therapy work with him. MRI of the brain is ordered for the morning to further elucidate. Continue statin, use Lovenox for DVT prophylaxis, and continue the remainder of his home medications if he is able to take by mouth. 01/26/17 02:32 DVT Prophylaxis: Lovenox ( plan of care was discussed with the patient and his son at the bedside at the time of my evaluation and they expressed understanding and desired to proceed. Will provide further symptomatic supportive and diagnostic cares as the current workup or changes in his clinical scenario indicate.) Hospital Course Summary Disclaimer: The visit summary below is not to be considered part of the above Progress Note. <Cyrus Kirkpatrick - Last Filed: 01/26/17 15:36> History of Present Illness Date: 01/26/17 [facility] Patient Stated Medical History Cerebrovascular Accident Yes Cataracts Yes Coronary Artery Disease Yes Hypertension Yes Diabetes Mellitus Type 2 Yes Hx Urinary Tract Infection Yes Clostridium Difficile Yes Depression Yes Exam Vital Signs: Temperature 98.6 F 01/26/17 08:04 Pulse Rate 66 01/26/17 14:04 Respiratory Rate 16 01/26/17 09:30 Blood Pressure 152/71 H 01/26/17 14:04 Pulse Oximetry 100 01/26/17 09:30 Height/Weight/BMI: Height 1.73 m Weight 57.153 kg Body Mass Index 19.1 Results - Labs CBC & Chem 7: 01/25/17 21:44 01/25/17 21:44 Assessment and Plan (1) CVA (cerebral vascular accident) Current visit: Yes Status: Acute (2) Delirium Problem details: Suspect Current visit: No Status: Acute (3) CAD (coronary artery disease) Current visit: No Status: Acute Resuscitation Status: Full Code Assessment and Plan: I have independently interviewed and examined pt. Chart reviewed. Case discussed with CM and patient's son. Reviewed above note and concur. CC: Right sided weakness, expressive dysarthria HPI: 81 y/o male with CAD, orthostatic hypotension, and diabetes presents to ED secondary to right sided weakness and difficulty communicating. Since last discharger patient has been doing fair. Stools have decreased in frequency and are forms. Not having ab pain. Oral drive still decreased and variable-at times will eat and at times won't. Family has been cautious with use of insulin to minimize potential hypoglycemia - reporting sugars in the 180 range (which is quite acceptable). Breathing stable. Afternoon of admission, son noted patient more weak in general-needed more help to get up and not moving as well on his own. When family returned from [facility], they found him with increased confusion and difficulty getting his words out. Patient was not moving the right side of his body well. Presents to ED for evaluation. Lab showing WBC with elevation at 12. Potassium slightly high at 5.1 (had significant hypokalemia during prior hospitalization). CXR showing no acute infiltrate. UA unremarkable for infection. Patient place in inpatient admission for further evaluation and treatment. PHMx: CAD, HDL, HTN, Orthostatic hypotension dysautonomic syndrome, Type II DM, Diabetic peripheral neuropathy, Anorexia, MDD, Hypothyroidism ALL: HCTZ, Pen, losartan, Meds: See MAR SHx: resides with family members who provide care. No smoke. Dr Paz for PCP. FHx: Non contributory - unable to obtain information from patient. ROS: as in HPI - unobtainable from patient. ROS obtained from family members. EXAM GEN: WD thin elderly male. Somnolent. HEENT: NC/AT MM slightly dry Neck: supple, midline Lungs: decreased bilaterally. No crackles or wheezes. No distress on RA. AB: soft nt/nd BS decreased Ext: thin, no edema MS: decreased muscle mass to upper/lower ext Neuro: difficult to assess as patient very somnolent during interview and examination. Psych: somnolent Skin: warm and dry Lab: reviewed - potassium 5.1. Assessment Right hemiparesis Expressive dysarthria Encephalopathy Hyperkalemia (POA) - mild Leukocytosis Recent C diff colitis CAD HDL HTN Orthostatic hypotension dysautonomic syndrome Anorexia Hypothyroidism MDD Plan Inpatient admission for concern of acute CVA. With patients new onset of severe neurological findings of hemiplegia, weakness, aphasia and altered mental status further evaluation is prudent. Anticipate greater than 2 midnight of care needed. PT/OT/Speech to evaluate and treat his functional deficits. Hold oral intake until cleared by speech. Obtain MRI of brain in light of neurological changes. Monitor blood sugars secondary to DM. SCD for DVT prevention. Full code as per his requests. Care to return to Dr Navarro at time of discharge from [facility]. MRI showing no acute changes. Patient still showing right sided weakness and expressive aphagia and somnolence /confusion. Not improved to the point where discharge would be feasible. Will start NS at 75cc/hr for hydration. Continue ProAmatine due to orthostatic hypotension; will have nursing monitor orthostatic vitals. Check prealbumin to assess nutritional status due to decreased weight and muscle mass. Continue therapy to maximize functional status. Recheck CBC in am due to Leukocytosis. Repeat CMP and Mg in am due to medication use. Case discussed with family and CM. Time spent with patient care greater that 70 minutes. - Time spent with patient Time with patient PN: 70 minutes Hospital Course Summary Disclaimer: The visit summary below is not to be considered part of the above Progress Note. Hospital Course: 01/25/17 Assessment Right hemiparesis Expressive dysarthria Encephalopathy Hyperkalemia (POA) - mild Leukocytosis Recent C diff colitis CAD HDL HTN Orthostatic hypotension dysautonomic syndrome Anorexia Hypothyroidism MDD Plan Inpatient admission for concern of acute CVA. With patients new onset of severe neurological findings of hemiplegia, weakness, aphasia and altered mental status further evaluation is prudent. Anticipate greater than 2 midnight of care needed. PT/OT/Speech to evaluate and treat his functional deficits. Hold oral intake until cleared by speech. Obtain MRI of brain in light of neurological changes. Monitor blood sugars secondary to DM. SCD for DVT prevention. Full code as per his requests. Care to return to Dr Navarro at time of discharge from [facility]. 01/26/17 MRI showing no acute changes. Patient still showing right sided weakness and expressive aphagia and somnolence /confusion. Not improved to the point where discharge would be feasible. Will start NS at 75cc/hr for hydration. Continue ProAmatine due to orthostatic hypotension; will have nursing monitor orthostatic vitals. Check prealbumin to assess nutritional status due to decreased weight and muscle mass. Continue therapy to maximize functional status. Recheck CBC in am due to Leukocytosis. Repeat CMP and Mg in am due to medication use.
[2017-01-26] MEDS: --POM--LEVOTHYROXINE 50 MCG TABLET PO SCH (06:19)
--- NOTE | 2017-01-26 08:02 | XRay Report ---
Indication: altered mental status leukocytosis PROCEDURE: XR chest 1V: Encounter: Initial Comparison: January 04, 2017 Findings: The lungs are stable in appearance without new focal airspace consolidation. There is no pleural effusion or pneumothorax. The heart size, pulmonary vascularity and mediastinal contours are unchanged. Prior CABG. IMPRESSION: Stable appearance of the chest without acute cardiopulmonary disease. .
--- NOTE | 2017-01-26 08:04 | CT Scan Report ---
Indication: altered loc cva history PROCEDURE: CT head/brain wo con: Encounter: Initial Comparison: January 02, 2017 Technique: Axial CT images through the head were performed without contrast. Iterative Reconstruction dose reducing technique was utilized. FINDINGS: Mild atrophy. The ventricles are dilated but unchanged. There are scattered areas of low attenuation in the white matter which most likely represent changes from chronic microvascular ischemia. The brainstem, cerebellum, and cerebral hemispheres otherwise have a normal morphology and CT attenuation. There is no evidence of midline displacement. No hemorrhage, signs of acute territorial stroke, mass effect, mass lesions, or edema is evident. The visualized portions of the skull base, midface, and calvarium demonstrate no abnormality. Left sphenoid sinus disease. The tympanic and mastoid cavities appear normal. IMPRESSION: No acute intracranial abnormality or hemorrhage. There is a preliminary report by [facility]. .
[2017-01-26] MEDS: ENOXAPARIN 40 MG/0.4 ML INJECTION SQ SCH (10:40)
[2017-01-26] MEDS: INSULIN REGULAR HUMAN 100 UNIT/ML SQ SCH ×3 (11:03→18:37)
[2017-01-26] MEDS: DULOXETINE 30 MG PO SCH (11:04)
[2017-01-26] MEDS: FLUDROCORTISONE 0.1 MG PO SCH (11:04)
[2017-01-26] MEDS: ASPIRIN 325 MG TABLET PO SCH (11:04)
--- NOTE | 2017-01-26 11:31 | Ultrasound Report ---
Indication: CVA PROCEDURE: US carotid doppler BI: TECHNIQUE: Grayscale, color and duplex Doppler imaging was performed of the carotid systems bilaterally. Velocities in cm/sec - validated velocity measurements with angiographic measurements, velocity criteria are extrapolated from diameter data as defined by the Society of Radiologists in Ultrasound Consensus Conference Radiology 2003; 229;340-346. RIGHT: PSV ICA 59 EDV ICA 15 PSV CCA 95 EDV CCA 21 SVR 0.6 PSV ECA 108 ICA Diameter reduction 10%-30% (1.0-1.2 PSV<110)% LEFT: PSV ICA 89 EDV ICA 30 PSV CCA 77 EDV CCA 16 SVR 1.1 PSV ECA 82 ICA Diameter reduction 10%-30% (1.0-1.2 PSV<110)% The right vertebral artery is patent with cephalic flow. The left vertebral artery is patent with cephalic flow. Diffuse atherosclerotic plaque in the common carotid arteries, carotid bulbs and proximal ICAs. No areas of velocity elevation seen. IMPRESSION: No hemodynamically significant carotid stenosis. .
[2017-01-26] MEDS ORDERED: SALINE FLUSH 10ml SYRINGE ONE (11:59)
--- NOTE | 2017-01-26 13:21 | Magnetic Resonance Report ---
Indication: Suspect L MCA CVA; aphasia, R side weak PROCEDURE: MR head/brain wo/w con: Encounter: Initial Comparisons: Head CT dated January 25, 2017 Technique: Multiplanar, multisequence, MR imaging of the head with and without contrast was acquired. Contrast: 11 mL of ProHance FINDINGS: The ventricles are prominent but stable. There are small nonspecific punctate areas of T2-weighted and T2 FLAIR weighted signal abnormality in the deep frontoparietal white matter that most likely represent small vessel ischemic disease. This is of a degree that is considered to be normal for the patient's age. The brain stem, cerebellum, and cerebral hemispheres otherwise have a normal morphologic appearance as well as MR signal intensity on all pulse sequences. Following intravenous administration of contrast, no areas of abnormal enhancement are evident. There are no areas of restricted diffusion to suggest an acute infarct. There is no evidence of an intracranial mass lesion, intracranial hemorrhage, or hydrocephalus. The visualized portions of the orbits, calvarium, and skull base demonstrate no significant abnormality. Left sphenoid sinus disease. IMPRESSION: No acute intracranial abnormality. No evidence of acute infarct. .
[2017-01-26] MEDS ORDERED: ACETAMINOPHEN 325 MG TABLET PO PRN (13:50)
[2017-01-26] MEDS: ASPIRIN 81 MG CHEWABLE TABLET PO SCH (16:10)
[2017-01-26] MEDS: NS 1,000 ML IV SCH (16:11)
[2017-01-26] MEDS: SALINE FLUSH 10ml SYRINGE IVF PRN (16:11)
[2017-01-26] MEDS ORDERED: GADOTERIDOL 279.3mg/ml - 17ml SYRINGE IVP ONE (18:00)
[2017-01-26] MEDS: LACTOBACILLUS (15B cfu) CAPSULE PO SCH (18:27)
[2017-01-26] MEDS: PRAVASTATIN 80 MG PO SCH (20:10)
[2017-01-26] MEDS ORDERED: PRAVASTATIN SODIUM 80 MG PO SCH (21:00)
[2017-01-27] MEDS: NS 1,000 ML IV SCH ×2 (05:24→19:12)
[2017-01-27] MEDS: --POM--LEVOTHYROXINE 50 MCG TABLET PO SCH (05:46)
[2017-01-27] MEDS: MIDODRINE 2.5 MG TABLET PO SCH ×3 (06:09→18:13)
[2017-01-27] MEDS: INSULIN REGULAR HUMAN 100 UNIT/ML SQ SCH ×3 (09:46→18:13)
[2017-01-27] MEDS: LACTOBACILLUS (15B cfu) CAPSULE PO SCH ×3 (09:47→18:13)
[2017-01-27] MEDS: COENZYME Q10 200 MG PO SCH (09:48)
[2017-01-27] MEDS: CALCITONIN NASAL SPRAY 3.7ml NS SCH (09:48)
[2017-01-27] MEDS: DULOXETINE 30 MG PO SCH (09:50)
[2017-01-27] MEDS: CYANOCOBALAMIN 1000 MCG PO SCH (09:50)
[2017-01-27] MEDS: ENOXAPARIN 40 MG/0.4 ML INJECTION SQ SCH (09:51)
[2017-01-27] MEDS: FLUDROCORTISONE 0.1 MG PO SCH (09:51)
--- NOTE | 2017-01-27 10:39 | Echocardiogram ---
DATE 01/26/2017 INDICATION Stroke, assess for cardiac source of embolus. TECHNICAL QUALITY Technically excellent 2-D, M-mode, Doppler echocardiographic images were submitted for interpretation. FINDINGS 1. CARDIAC CHAMBERS. All cardiac chamber measurements are normal. Aortic root diameter is normal. RV size and contractility appear normal. 2. LEFT VENTRICLE. Wall thickness appears upper-normal range, by my measurement about it is about 10 mm. The rv repair technician measured 13 mm. Wall motion analysis is normal. Systolic function is normal, EF of about 60%. Diastolic function assessment shows E/A ratio of 0.4, E/E' ratio of 8.2. 3. VALVES. Aortic, mitral and tricuspid valve structure and motion appear normal. Normal valve excursion. 4. DOPPLER. Analysis revealed trace tricuspid regurgitation with estimated systolic PA pressure of 15 mmHg, trace mitral regurgitation, normal flow velocities throughout. 5. No evidence of pericardial effusion, intracardiac masses, thrombi, vegetations or shunts. IMPRESSION 1. Normal LV size and systolic function, EF of 60%. 2. No significant valvular dysfunction. 3. Mild calcification in the posterior mitral annulus and anterior tricuspid valve annulus. 4. No evidence of intracardiac masses, thrombi, vegetations or shunts. 5. Patient is in sinus rhythm with PACs during the study. 6. No evidence of interatrial septal aneurysm or demonstrable shunt. Bubble study was not performed. [facility]
[2017-01-27] MEDS: ASPIRIN 325 MG TABLET PO SCH (12:26)
[2017-01-27] MEDS: INSULIN ASPART 100unit/ml INJECTION SQ PRN ×2 (12:27→18:12)
[2017-01-27 15:00] VITALS: BMI 19.5
[2017-01-27] MEDS: ASPIRIN 81 MG CHEWABLE TABLET PO SCH (16:50)
--- NOTE | 2017-01-27 17:02 | Progress Note ---
Subjective: F/U: Right hemiparesis, expressive dysarthria, encephalopathy. Resting in bed this evening. Not verbally interactive. Did work with therapy. Ate 25% of lunch today. Not reporting nausea or ab pain. Breathing well. Son at bedside, case discussed with him. Objective Vital signs: Temperature 97.3 F 01/27/17 16:17 Pulse Rate 62 01/27/17 16:17 Respiratory Rate 20 01/27/17 16:17 Blood Pressure 178/79 H 01/27/17 16:17 Pulse Oximetry 100 01/27/17 16:17 Height/Weight/BMI: Height 1.73 m Weight 58.3 kg Body Mass Index 19.5 - Constitutional Present: well nourished, well developed, average body habitus, thin. Absent: combative, agitated - Routine HEENT Exam Head: Present: normocephalic, atraumatic Eye: Present: EOMI, PERRL ENT: Present: mucous membranes moist - Routine Respiratory Exam Present: CTA bilaterally. Absent: rales, respiratory distress, rhonchi, wheezes - Routine Cardiovascular Exam Present: RRR, no murmur - Routine Abdominal Exam Present: soft, non distended, non tender. Absent: normoactive bowel sounds - Routine Extremities Exam Present: no edema, pulses intact. Absent: cyanosis, clubbing - Routine Musculoskeletal Exam Musculoskeletal: Present: no clubbing or cyanosis. Absent: normal strength - Routine Skin Exam Present: dry, warm - Routine Neurological Exam Present: alert, CN II-XII intact, vision grossly intact, hearing grossly intact - Routine Psychiatric Exam Present: normal affect. Absent: anxious, agitated Results - Labs CBC & Chem 7: 01/27/17 03:54 01/27/17 03:54 Assessment and Plan (1) CVA (cerebral vascular accident) Current visit: Yes Status: Acute he is admitted to telemetry for serial neurologic examination. He is already on baby dose aspirin, will graduate to full strength aspirin in the morning if he passes bedside swallow examination. We will have physical occupational and speech therapy work with him. MRI of the brain is ordered for the morning to further elucidate. Continue statin, use Lovenox for DVT prophylaxis, and continue the remainder of his home medications if he is able to take by mouth. 01/26/17 02:32 (2) Delirium Problem details: Suspect Current visit: No Status: Acute 01/26/17 02:33 Maximize environmental cues (3) CAD (coronary artery disease) Current visit: No Status: Acute 01/26/17 02:34 continue home regimen DVT Prophylaxis: SCD's, Lovenox Resuscitation Status: Full Code Assessment and Plan: Assessment Right hemiparesis Expressive dysarthria Encephalopathy Hyperkalemia (POA) - mild Leukocytosis Recent C diff colitis CAD HDL HTN Orthostatic hypotension dysautonomic syndrome Anorexia Hypothyroidism MDD Plan Will check CT scan of ab/pelvis due to decreased oral drive and decline to exclude occult pathology. Continue low flow IVF as oral drive decreased. Continue cautious use of insulin-significant hypoglycemia at previous admission. Work to improve strength and functional status. Will recheck BMP in am to monitor potassium and recheck renal status post CT. Case discussed with family and CM. Time spent with patient care greater that 25 minutes. Hospital Course Summary Disclaimer: The visit summary below is not to be considered part of the above Progress Note. Hospital Course: 01/25/17 Assessment Right hemiparesis Expressive dysarthria Encephalopathy Hyperkalemia (POA) - mild Leukocytosis Recent C diff colitis CAD HDL HTN Orthostatic hypotension dysautonomic syndrome Anorexia Hypothyroidism MDD Plan Inpatient admission for concern of acute CVA. With patients new onset of severe neurological findings of hemiplegia, weakness, aphasia and altered mental status further evaluation is prudent. Anticipate greater than 2 midnight of care needed. PT/OT/Speech to evaluate and treat his functional deficits. Hold oral intake until cleared by speech. Obtain MRI of brain in light of neurological changes. Monitor blood sugars secondary to DM. SCD for DVT prevention. Full code as per his requests. Care to return to Dr Navarro at time of discharge from [facility]. 01/26/17 MRI showing no acute changes. Patient still showing right sided weakness and expressive aphagia and somnolence /confusion. Not improved to the point where discharge would be feasible. Will start NS at 75cc/hr for hydration. Continue ProAmatine due to orthostatic hypotension; will have nursing monitor orthostatic vitals. Check prealbumin to assess nutritional status due to decreased weight and muscle mass. Continue therapy to maximize functional status. Recheck CBC in am due to Leukocytosis. Repeat CMP and Mg in am due to medication use. 01/27/[address] scan of ab/pelvis due to decreased oral drive and decline to exclude occult pathology. Continue low flow IVF as oral drive decreased. Continue cautious use of insulin-significant hypoglycemia at previous admission. Work to improve strength and functional status. Will recheck BMP in am to monitor potassium and recheck renal status post CT.
[2017-01-27] MEDS ORDERED: NS 100 ML ONE (17:11)
[2017-01-27] MEDS ORDERED: IOHEXOL 300mg/ml 75ml INJECTION ONE (17:11)
[2017-01-27] MEDS ORDERED: SALINE FLUSH 10ml SYRINGE ONE (17:11)
[2017-01-27] MEDS: PRAVASTATIN 80 MG PO SCH (20:05)
[2017-01-27 23:23] VITALS: RESP 16; O2SAT 98
[2017-01-28] MEDS: --POM--LEVOTHYROXINE 50 MCG TABLET PO SCH (06:03)
[2017-01-28] MEDS: MIDODRINE 2.5 MG TABLET PO SCH ×2 (06:03→11:29)
[2017-01-28] MEDS: NS 1,000 ML IV SCH (07:56)
[2017-01-28 08:14] VITALS: BP 183/97; PULSE 89; TEMP 97
[2017-01-28] MEDS: ASPIRIN 325 MG TABLET PO SCH (08:58)
[2017-01-28] MEDS: CALCITONIN NASAL SPRAY 3.7ml NS SCH (08:58)
[2017-01-28] MEDS: ENOXAPARIN 40 MG/0.4 ML INJECTION SQ SCH (08:58)
[2017-01-28] MEDS: LACTOBACILLUS (15B cfu) CAPSULE PO SCH ×2 (08:58→14:07)
[2017-01-28] MEDS: INSULIN REGULAR HUMAN 100 UNIT/ML SQ SCH ×2 (08:59→13:17)
[2017-01-28] MEDS: COENZYME Q10 200 MG PO SCH (08:59)
[2017-01-28] MEDS: CYANOCOBALAMIN 1000 MCG PO SCH (09:00)
[2017-01-28] MEDS: FLUDROCORTISONE 0.1 MG PO SCH (09:00)
[2017-01-28] MEDS: DULOXETINE 30 MG PO SCH (09:00)
[2017-01-28] MEDS: ASPIRIN 81 MG CHEWABLE TABLET PO SCH (09:01)
--- NOTE | 2017-01-28 14:03 | Progress Note ---
Subjective: F/U: Right hemiparesis, expressive dysarthria, encephalopathy. Doing better today. Much more awake and alert. Family brought in [place] food he likes and he ate it very well. Did see patient and his son when patient was walking to bathroom-the two of them did very well with the transfers (and this is with pt having IV tubing to work around). Ambulated very slowly and cautiously. Patient reports is feeling well-breathing well, no nausea or ab pain. Objective Vital signs: Temperature 97 F 01/28/17 08:13 Pulse Rate 89 01/28/17 08:13 Respiratory Rate 16 01/28/17 08:13 Blood Pressure 183/97 H 01/28/17 08:13 Pulse Oximetry 98 01/28/17 08:13 Height/Weight/BMI: Height 1.73 m Weight 58.3 kg Body Mass Index 19.5 - Constitutional Present: no acute distress, well developed, thin, cooperative. Absent: combative, agitated, somnolent - Routine HEENT Exam Head: Present: normocephalic, atraumatic Eye: Present: EOMI, PERRL ENT: Present: mucous membranes moist - Routine Respiratory Exam Present: CTA bilaterally. Absent: rales, respiratory distress, rhonchi, wheezes , crackles - Routine Cardiovascular Exam Present: RRR, no murmur - Routine Abdominal Exam Present: soft, normoactive bowel sounds, non distended, non tender - Routine Extremities Exam Present: no edema, pulses intact. Absent: cyanosis, clubbing - Routine Musculoskeletal Exam Musculoskeletal: Present: no clubbing or cyanosis. Absent: normal gait ( Unsteady-ambulated well with son's assistance ) - Routine Skin Exam Present: intact, dry, warm - Routine Neurological Exam Present: alert, CN II-XII intact, moving all extremities. Absent: altered mental status, vision grossly intact, hearing grossly intact - Routine Psychiatric Exam Present: normal affect, cooperative. Absent: anxious, agitated, paranoid Results - Labs CBC & Chem 7: 01/28/17 04:35 01/28/17 04:35 Assessment and Plan (1) CVA (cerebral vascular accident) Current visit: Yes Status: Acute (2) Delirium Problem details: Suspect Current visit: No Status: Acute (3) CAD (coronary artery disease) Current visit: No Status: Acute DVT Prophylaxis: SCD's, Lovenox Resuscitation Status: Full Code Assessment and Plan: Assessment Right hemiparesis - improved Expressive dysarthria - improved Encephalopathy - resolved Hyperkalemia (POA) - mild Leukocytosis Recent C diff colitis CAD HDL HTN Orthostatic hypotension dysautonomic syndrome Anorexia Hypothyroidism MDD Plan CT scan showing some mild inflammation of diverticula - likely from resolving C diff. No evidence of metastatic disease. With oral drive improving, weakness resolved, and lab stable will discharge to home. Continue chronic home mediations. Encourage oral intake for food/liquids. Continue cautious activities as family is doing. F/U with Dr Paz in 1 week for evaluation. See orders for details. Case discussed with family and nursing. Time spent with patient care and discharge greater that 30 minutes. Hospital Course Summary Disclaimer: The visit summary below is not to be considered part of the above Progress Note. Hospital Course: 01/25/17 Assessment Right hemiparesis Expressive dysarthria Encephalopathy Hyperkalemia (POA) - mild Leukocytosis Recent C diff colitis CAD HDL HTN Orthostatic hypotension dysautonomic syndrome Anorexia Hypothyroidism MDD Plan Inpatient admission for concern of acute CVA. With patients new onset of severe neurological findings of hemiplegia, weakness, aphasia and altered mental status further evaluation is prudent. Anticipate greater than 2 midnight of care needed. PT/OT/Speech to evaluate and treat his functional deficits. Hold oral intake until cleared by speech. Obtain MRI of brain in light of neurological changes. Monitor blood sugars secondary to DM. SCD for DVT prevention. Full code as per his requests. Care to return to Dr Navarro [place] [facility] [place]17 MRI showing no acute changes. Patient still showing right sided weakness and expressive aphagia and somnolence /confusion. Not improved to the point where discharge would be feasible. Will start NS at 75cc/hr for hydration. Continue ProAmatine due to orthostatic hypotension; will have nursing monitor orthostatic vitals. Check prealbumin to assess nutritional status due to decreased weight and muscle mass. Continue therapy to maximize functional status. Recheck CBC in am due to Leukocytosis. Repeat CMP and Mg in am due to medication use. 01/27/[address] scan of ab/pelvis due to decreased oral drive and decline to exclude occult pathology. Continue low flow IVF as oral drive decreased. Continue cautious use of insulin-significant hypoglycemia at previous admission. Work to improve strength and functional status. Will recheck BMP in am to monitor potassium and recheck renal status post CT. 01/28/17 CT scan showing some mild inflammation of diverticula - likely from resolving C diff. No evidence of metastatic disease. With oral drive improving, weakness resolved, and lab stable will discharge to home. Continue chronic home mediations. Encourage oral intake for food/liquids. Continue cautious activities as family is doing. F/U with Dr Paz in 1 week for evaluation. See orders for details.
--- NOTE | 2017-01-28 14:13 | Discharge Summary ---
Discharge Information Date of admission: 01/26/17 02:11 Anticipated date of discharge: 01/28/17 Attending Physician: Cyrus Kirkpatrick MD Primary care physician: Chantel Paz DO Consults: PT/OT/Speech - Discharge Diagnosis (1) CVA (cerebral vascular accident) Status: Suspected (2) Delirium Status: Acute (3) CAD (coronary artery disease) Status: Acute Discharge Diagnosis: Discharge diagnosis TIA Right hemiparesis - improved Expressive dysarthria - improved MRI with no evidence of CVA Associated conditions and complications Encephalopathy - resolved Hyperkalemia (POA) - mild, resolved Leukocytosis - resolved Recent C diff colitis CAD HDL HTN Orthostatic hypotension dysautonomic syndrome Anorexia Hypothyroidism MDD - Procedures Procedures: Date of Exam: 01/26/17 Type of Exam: US echo doppler complete FINDINGS 1. CARDIAC CHAMBERS. All cardiac chamber measurements are normal. Aortic root diameter is normal. RV size and contractility appear normal. 2. LEFT VENTRICLE. Wall thickness appears upper-normal range, by my measurement about it is about 10 mm. The paint laboratory technician measured 13 mm. Wall motion analysis is normal. Systolic function is normal, EF of about 60%. Diastolic function assessment shows E/A ratio of 0.4, E/E' ratio of 8.2. 3. VALVES. Aortic, mitral and tricuspid valve structure and motion appear normal. Normal valve excursion. 4. DOPPLER. Analysis revealed trace tricuspid regurgitation with estimated systolic PA pressure of 15 mmHg, trace mitral regurgitation, normal flow velocities throughout. 5. No evidence of pericardial effusion, intracardiac masses, thrombi, vegetations or shunts. IMPRESSION 1. Normal LV size and systolic function, EF of 60%. 2. No significant valvular dysfunction. 3. Mild calcification in the posterior mitral annulus and anterior tricuspid valve annulus. 4. No evidence of intracardiac masses, thrombi, vegetations or shunts. 5. Patient is in sinus rhythm with PACs during the study. 6. No evidence of interatrial septal aneurysm or demonstrable shunt. Bubble study was not performed. - Laboratory Labs: Admit Lab 01/25/17 21:44 WBC 12.5 H Hgb 13.1 L Hct 40.3 L MCV 90.4 Plt Count 317 Neut % (Auto) 82.6 H Lymph % (Auto) 12.4 L Admit Lab 01/25/17 01/25/17 21:44 21:44 Sodium 141 Potassium 5.1 H Chloride 100 Carbon Dioxide 24 Anion Gap 17 H BUN 12.0 Creatinine 0.8 GFR Calculation 93 BUN/Creatinine Ratio 15 Glucose 262 H Hemoglobin A1c 7.2 Calculated Osmolality 280 Total Bilirubin 0.80 Conjugated Bilirubin 0.00 Unconjugated Bilirubin 0.50 AST 25 ALT 34 Total Protein 7.7 Albumin 4.2 Albumin/Globulin Ratio 1.2 Prealbumin 28.0 TSH 2.06 01/28/17 04:35 01/28/17 04:35 Pending Lab 01/28/17 04:35 Prostate Specific Ag Pending - Radiology Radiology: Date of Exam: 01/25/17 PROCEDURE: XR chest 1V Findings: The lungs are stable in appearance without new focal airspace consolidation. There is no pleural effusion or pneumothorax. The heart size, pulmonary vascularity and mediastinal contours are unchanged. Prior CABG. IMPRESSION: Stable appearance of the chest without acute cardiopulmonary disease. -- Date of Exam: 01/25/17 PROCEDURE: CT head/brain wo con FINDINGS: Mild atrophy. The ventricles are dilated but unchanged. There are scattered areas of low attenuation in the white matter which most likely represent changes from chronic microvascular ischemia. The brainstem, cerebellum , and cerebral hemispheres otherwise have a normal morphology and CT attenuation. There is no evidence of midline displacement. No hemorrhage, signs of acute territorial stroke, mass effect, mass lesions, or edema is evident. The visualized portions of the skull base, midface, and calvarium demonstrate no abnormality. Left sphenoid sinus disease. The tympanic and mastoid cavities appear normal. IMPRESSION: No acute intracranial abnormality or hemorrhage. --- Date of Exam: 01/26/17 Type of Exam: MR head/brain wo/w con IMPRESSION: No acute intracranial abnormality. No evidence of acute infarct. Addendum: Comparison was also made to head CT dated December 28, 2011. This demonstrates the ventricular dilatation is stable dating back to at least 2011. At that time normal pressure hydrocephalus was discussed as a possibility. Recommend clinical correlation for signs and symptoms of this entity. If there is continued clinical concern a nuclear medicine ventricular study could be performed. ---- Date of Exam: 01/26/17 PROCEDURE: US carotid doppler BI Diffuse atherosclerotic plaque in the common carotid arteries, carotid bulbs and proximal ICAs. No areas of velocity elevation seen. IMPRESSION: No hemodynamically significant carotid stenosis. History of Present Illness HPI: Lorie is a pleasant 81 year old R hand dominant man who lives with his son, who provides the history that he seemed a little disoriented about 5 pm but was easily reoriented at that time. His son took his daughter to a soccer game, and when he returned an hour or so later, he found Lorie very confused, unable to speak, and not moving his R side very well. He was brought to the ER where initial workup was unremarkable except for ongoing expressive aphasia (save a couple of words), and RUE and RLE weakness. CT brain was WNL. It was felt he was outside the window for TPA considerations. He took all of his home medications this morning including aspirin and statin. He had a recent hospitalizaiton for C. Diff colitis, and just finished his flagyl this Monday. His son related that he has complained of "feeling like crap" since he left the hospital about two weeks ago, but tonight was a dramatic departure from his baseline which is ambulatory and modified independant. 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 For more details refer to the complete medical record. Hospital course: 01/25/17 Assessment Right hemiparesis Expressive dysarthria Encephalopathy Hyperkalemia (POA) - mild Leukocytosis Recent C diff colitis CAD HDL HTN Orthostatic hypotension dysautonomic syndrome Anorexia Hypothyroidism MDD Plan Inpatient admission for concern of acute CVA. With patients new onset of severe neurological findings of hemiplegia, weakness, aphasia and altered mental status further evaluation is prudent. Anticipate greater than 2 midnight of care needed. PT/OT/Speech to evaluate and treat his functional deficits. Hold oral intake until cleared by speech. Obtain MRI of brain in light of neurological changes. Monitor blood sugars secondary to DM. SCD for DVT prevention. Full code as per his requests. Care to return to Dr Navarro at time of discharge from [facility] [place]. 01/26/17 MRI showing no acute changes. Patient still showing right sided weakness and expressive aphagia and somnolence /confusion. Not improved to the point where discharge would be feasible. Will start NS at 75cc/hr for hydration. Continue ProAmatine due to orthostatic hypotension; will have nursing monitor orthostatic vitals. Check prealbumin to assess nutritional status due to decreased weight and muscle mass. Continue therapy to maximize functional status. Recheck CBC in am due to Leukocytosis. Repeat CMP and Mg in am due to medication use. 01/27/[address] scan of ab/pelvis due to decreased oral drive and decline to exclude occult pathology. Continue low flow IVF as oral drive decreased. Continue cautious use of insulin-significant hypoglycemia at previous admission. Work to improve strength and functional status. Will recheck BMP in am to monitor potassium and recheck renal status post CT. 01/28/17 CT scan showing some mild inflammation of diverticula - likely from resolving C diff. No evidence of metastatic disease. With oral drive improving, weakness resolved, and lab stable will discharge to home. Continue chronic home mediations. Encourage oral intake for food/liquids. Continue cautious activities as family is doing. F/U with Dr Paz in 1 week for evaluation. See orders for details. Time spent with patient: discharge greater than 30 minutes DVT Prophylaxis: SCD's, Lovenox Discharge Plan - Med Rec/Dispo Referrals/Follow Up: Chantel Paz DO [Family Provider] - 1 Week (Hospital follow up ) Prescriptions: Continue Cyanocobalamin (Vitamin B-12) [Vitamin B-12] 1,000 mcg PO DAILY #0 tab Levothyroxine Sodium 50 mcg PO ACB #30 tab Aspirin 81 mg PO DAILY Duloxetine [Cymbalta] 90 mg PO DAILY Pravastatin Sodium 80 mg PO HS Coenzyme Q-10 [Co Q-10] 200 mg PO DAILY Acidoph/L.bulg/Bif.b/S.thermop [Bacid Caplet] 2 cap PO TIDWM tablet Calcitonin Nasal Barton [Miacalcin Barton] 1 spray NS DAILY bottle Dronabinol [Marinol] 5 mg PO BID #60 cap Fludrocortisone [Florinef] 0.1 mg PO DAILY #30 tab Midodrine [Proamatine] 2.5 mg PO 0700,1100,1500 #90 tab Potassium Chloride [K-Dur] 20 meq PO TIDWM #90 tab Acetaminophen [Tylenol] 325 - 650 mg PO Q5H PRN tablet PRN Reason: Discomfort Insulin Regular, Human [Novolin R] 10 unit SQ TIDWM Discharge Instructions/Outpatient Orders: Provider Discharge Instructions Location: Determined By Patient - Disposition 01 Discharged Home, Self-Care - Attestation Attestation Narrative: 01/28/17 14:25 I have independently interviewed and examined patient prior to discharge. See my progress note from today for details. Medically stable for discharge to home.
--- NOTE | 2017-01-29 10:23 | CT Scan Report ---
Indication: Anorexia, ? Cancer PROCEDURE: CT abdomen pelvis w con: Encounter: Initial Comparison: None Technique: Axial CT images were performed through the abdomen and pelvis after the administration of intravenous contrast. Coronal and sagittal two-dimensional reformats. Automated Exposure Control and Iterative Reconstruction dose reducing techniques were utilized. Contrast: Omnipaque 300 70 mL Findings: The lung bases are clear. The liver is unremarkable. The gallbladder is grossly normal. The spleen, pancreas and adrenal glands are within normal limits. Bilateral renal cysts. No abdominal or pelvic lymphadenopathy. Bladder appears normal. Uterus is surgically absent. There is wall thickening in the mid sigmoid colon with slight surrounding inflammation. No evidence of a bowel obstruction. Bone windows show degenerative change in the spine with demineralization. Impression: Mild wall thickening and inflammation in the sigmoid colon suggesting acute diverticulitis. Colonoscopy may be helpful for further evaluation to exclude any underlying lesion or neoplasm. There is a preliminary report by [facility] .
== END 2017-01-28 15:49 | disposition home health service (06) | DRG 64 ==
LOC: MED 20:53 → ED 20:53 → MED 01-26 00:50
PROVIDERS: ADMIT Internal Medicine; ATTEND Hospitalist

== ENCOUNTER 2017-04-05 22:57 | Inpatient (IN) ==
--- NOTE | 2017-04-05 23:48 | Emergency Department Report ---
SOB HPI - General Chief Complaint: Shortness of Breath/Dyspnea <RichardLaney Antonio Crawford 04/05/17 23 :52> Stated Complaint: Congestive heart failure, swollen from abd down <Jaylakaila Laney Antonio Crawford 04/05/17 23:52> Time Seen by Provider: 04/05/17 23:25 <RichardLaneyrao Crawford 04/05/17 23:52> Source: family <KimaddieLaneyrao Crawford 04/05/17 23:52> Mode of arrival: wheelchair <RichardLaneyrao Crawford 04/05/17 23:52> Limitations: no limitations <RichardLaneyrao Crawford 04/05/17 23:52> - History of Present Illness Pt presents with a complaint of increased bilateral lower extremity edema and increased SOA. Pt has been on hospice for about 5 months for CHF and stage 4 dementia. Pt is living at home with daughter and son in law who is his primary child day care center worker. THis evening son in law took pt dinner and pt had difficulty ambulating to the diner 2/2 SOA. Pt has not needed supplemental O2 yet but family has been prepared to use it however has not needed to until this evening and did not have it while out. Once home pt had SpO2 of 70% on room air, son in law was able to get SpO2 to 90% on 3.5 liters while pt was at rest. Family had notified hospice nurse who came from [place] to evaluate patient who was concerned pt has had a severe increase in his LE edema up to an including his abdomen in the last 24 hours. Per son in law hospice nurse informed them that any medications should could give would not work fast enough and that the patient would be in 2-3 days. <Laney Ramos 04/05/17 23:52> MD Complaint: shortness of breath <Laney Ramos 04/05/17 23:52> Onset (ago): day(s) <Laney Ramos 04/05/17 23:52> Context: occurred during exertion <Laney Ramos 04/05/17 23:52> Severity: mild <Laney Ramos 04/05/17 23:52> Consistency/Duration: intermittent <Laney Ramos 04/05/17 23:52> Relieving factors: oxygen, rest <Laney Ramos 04/05/17 23:52> Exacerbating factors: exertion <Laney Ramos 04/05/17 23:52> Known history of: congestive heart failure, diabetes <Laney Ramos 23:52> Associated symptoms: denies other symptoms <Laney Ramos 04/05/17 23: 52> Treatment prior to arrival: oxygen <Laney Ramos 04/05/17 23:52> - Related Data Home Medications Medication Instructions Recorded Confirmed Cyanocobalamin (Vitamin B-12) 1,000 mcg PO DAILY #0 tab 05/04/16 01/25/17 [Vitamin B-12] Aspirin 81 mg PO DAILY 01/02/17 01/25/17 Coenzyme Q-10 [Co Q-10] 200 mg PO DAILY 01/02/17 01/25/17 Duloxetine [Cymbalta] 90 mg PO DAILY 01/02/17 01/25/17 Pravastatin Sodium 80 mg PO HS 01/02/17 01/25/17 Insulin Regular, Human [Novolin R] 10 unit SQ TIDWM 01/25/17 01/25/17 Previous Rx's Medication Instructions Recorded Levothyroxine Sodium 50 mcg PO ACB #30 tab 05/09/16 Acetaminophen [Tylenol] 325 - 650 mg PO Q5H PRN tab 01/13/17 Acidoph/L.bulg/Bif.b/S.thermop 2 cap PO TIDWM tab 01/13/17 [Bacid Caplet] Calcitonin Nasal [place] [Miacalcin 1 spray NS DAILY bottle 01/13/17 [place]] Dronabinol [Marinol] 5 mg PO BID #60 cap 01/13/17 Fludrocortisone [Florinef] 0.1 mg PO DAILY #30 tab 01/13/17 Midodrine [Proamatine] 2.5 mg PO 0700,1100,1500 #90 tab 01/13/17 Potassium Chloride [K-Dur] 20 meq PO TIDWM #90 tab 01/13/17 <Laney Ramos Antonio 04/05/17 23:52> Allergies Allergy/AdvReac Type Severity Reaction Status Date / Time hydrochlorothiazide Allergy Intermediate SWELLING Verified 01/25/17 22:40 Penicillins Allergy Unknown Verified 01/25/17 22:40 losartan potassium Allergy Intermediate SWELLING Uncoded 01/25/17 22:40 pioglitazone HCl Allergy Mild FLUID Uncoded 01/25/17 22:40 RETENTION midazolam HCl Allergy Unknown Uncoded 01/25/17 22:40 <Laney Ramos 04/05/17 23:52> Review of Systems All systems: reviewed and negative except as stated <Laney Ramos 23:52> Constitutional: Reports: as per HPI <Laney Ramos 04/05/17 23:52> Cardiovascular: Reports: as per HPI <Laney Ramos 04/05/17 23:52> Respiratory: Reports: as per HPI <Laney Ramos 04/05/17 23:52> Musculoskeletal: Reports: as per HPI <Laney Ramos 04/05/17 23:52> Neurological: Reports: as per HPI <Laney Ramos 04/05/17 23:52> Psychiatric: Reports: as per HPI <Laney Ramos 04/05/17 23:52> FOR[facility]LY [facility] Patient Stated Medical History Cerebrovascular Accident Yes Cataracts Yes Coronary Artery Disease Yes Hypertension Yes Diabetes Mellitus Type 2 Yes Hx Urinary Tract Infection Yes Clostridium Difficile Yes Depression Yes <Laney Ramos 04/05/17 23:52> Surgical History: CABG 4 in 2010. Previous coronary stents 2 at proceeded his CABG no previous [place] <Laney Ramos 04/05/17 23:52> - Social History Current residence: Apartment/Private Home <Laney Ramos 04/05/17 23:52 > Physical Exam - Limitations Limitations: no limitations <Laney Ramos 04/05/17 23:52> - General General appearance: alert, in no apparent distress <Laney Ramos 04/05 23:52> - Normal Exams: Head:: Normocephalic without trauma <Laney Ramos 04/05/17 23:52> Eyes:: Pupils are PERRLA w/ EOMI <Laney Ramos 04/05/17 23:52> Neck:: Full range of motion, without adenopathy <Laney Ramos 23:52> Chest/Respirations:: Clear all brewer, with good airflow, and symmetry bilaterally (non labored) <JaylakailaLaney R 04/05/17 23:52> Cardiovascular:: Regular rate and rhythm (1= pitting edema to leticia LE), without murmur or gallop <Laney Ramos 04/05/17 23:52> Abdomen:: Bowel sounds positive, soft, non-tender, non-distended <Laney Ramos 04/05/17 23:52> Musculoskeletal:: No tenderness, or deformity noted, good range of motion, all extremities <Laney Ramos 04/05/17 23:52> Integumentary:: No rashes <Laney Ramos 04/05/17 23:52> Neurological:: Patient is alert (pt has dementia but currently answering questions appropirately) <Laney Ramos 04/05/17 23:52> Psychiatric:: Patient exhibits, appropriate attention, emotion and affect < Laney Ramos 04/05/17 23:52> Course - Consultations Consultation #1: Dr Osuna <RichardLaney R 04/06/17 01:18> Time: 12:50 (pt to be admitted for CHF ) <Laney Ramos 04/06/17 01:18> Vital Signs Temperature 97.5 F 04/05/17 22:58 Pulse Rate 87 04/05/17 22:58 Respiratory Rate 22 04/05/17 22:58 Blood Pressure 152/81 H 04/05/17 22:58 Pulse Oximetry 99 04/05/17 22:58 Temperature 97.5 F 04/05/17 22:58 Pulse Rate 87 04/05/17 22:58 Respiratory Rate 22 04/05/17 22:58 Blood Pressure 152/81 H 04/05/17 22:58 Pulse Oximetry 99 04/05/17 22:58 <AugustMustapha M - 04/06/17 00:31> Vital Signs Temperature 97.5 F 04/05/17 22:58 Pulse Rate 87 04/05/17 22:58 Respiratory Rate 22 04/05/17 22:58 Blood Pressure 152/81 H 04/05/17 22:58 Pulse Oximetry 99 04/05/17 22:58 Temperature 97.5 F 04/05/17 22:58 Pulse Rate 87 04/05/17 22:58 Respiratory Rate 22 04/05/17 22:58 Blood Pressure 152/81 H 04/05/17 22:58 Pulse Oximetry 99 04/05/17 22:58 <Laney Ramos 04/06/17 01:18> Shortness of Breath/Dyspnea - [facility] Narrative Medical decision making narrative: Labs and x ray reviewed. Pt has known history of end stage CHF and xray reveals bilateral pleural effusions. Family reports pt is currently a full code per his request. IV Lasix initiated. Summers placed. Pt to be admitted per Dr Osuna. <Laney Ramos 04/06/17 01:18> - Differential Diagnosis Likely: acute exacerbation of chronic obstructive airways disease, congestive heart failure, community acquired pneumonia, asthma with exacerbation < Laney Ramos 04/05/17 23:52> - Lab Data Attestation: I reviewed the patient's lab results. <Laney Ramos 04/06 01:18> Result diagrams: 04/06/17 00:02 04/06/17 00:02 <Laney Ramos 04/05/17 23:52> Lab Results 04/06/17 04/06/17 Range/Units 00:02 00:02 WBC 5.3 (4.5-11.0) T/MM3 RBC 3.51 L (4.50-5.90) M/MM3 Hgb 10.4 L (13.5-17.5) GM/DL Hct 33.6 L (41-53) % MCV 95.7 (80-100) UM3 MCH 29.6 (26-34) UUG MCHC 31.0 (31-37) GM/DL RDW Std Deviation 53.5 H (36.9-50.2) FL Plt Count 221 (130-400) T/MM3 MPV 10.1 (9.4-12.4) UM3 Immature Gran % (Auto) 0.0 (0.0-0.5) % Neut % (Auto) 67.2 H (33-66) % Lymph % (Auto) 22.8 L (23-45) % [place] % (Auto) 8.1 (0-9.0) % Eos % (Auto) 1.3 (0-4) % Baso % (Auto) 0.6 (0-2) % Neut # (Auto) 3.6 (1.8-7.7) T/MM3 Lymph # (Auto) 1.2 (1-4.8) T/MM3 [place] # (Auto) 0.4 (0-0.8) T/MM3 Eos # (Auto) 0.1 (0-0.5) T/MM3 Baso # (Auto) 0.0 (0-0.2) T/MM3 Abs Immat Gran (auto) 0.00 (0.00-0.03) T/MM3 Turbidity < 20 (0-20) Sodium 145 H (134-144) MEQ/L Potassium 3.9 (3.6-5) MEQ/L Chloride 112 H (98-107) MEQ/L Carbon Dioxide 23 (22-30) MEQ/L Anion Gap 10 (5-15) MEQ/L BUN 18.0 (9-20) MG/DL Creatinine 1.0 (0.8-1.5) MG/DL GFR Calculation 71 BUN/Creatinine Ratio 18 (6-26) RATIO Glucose 191 H (75-110) MG/DL Calculated Osmolality 286 H (261-280) MOSM/KG Calcium 8.6 (8.4-10.2) MG/DL Total Bilirubin 0.30 (0.20-1.30) MG/DL Icterus Index < 2 (0-7) AST 31 (17-59) U/L ALT 48 (21-72) U/L Alkaline Phosphatase 127 H (38-126) U/L B-Natriuretic Peptide 46264 H (0-175) pg/mL Total Protein 6.1 L (6.3-8.2) G/DL Albumin 3.2 L (3.5-5.0) G/DL Globulin 2.9 (2.4-3.6) G/DL Albumin/Globulin Ratio 1.1 (1.1-2.2) RATIO Specimen Hemolysis < 15 (0-25) <Laney Ramos R 04/06/17 01:18> - Radiology Data Attestation: I reviewed the patient's radiology results. (read per Dr Parekh, bilateral pleural effusions) <Laney Ramos 04/06/17 01:18> - EKG Data EKG #1 EKG attestation: Yes: I reviewed and interpreted this EKG. <August,Mustapha 00:32> EKG shows normal: sinus rhythm, axis, QRS complexes <eb 04/06/17 00 :32> Rate: normal <August,Mustapha 04/06/17 00:32> Rhythm: PVC's <eb 04/06/17 00:32> Heart block present: 1st Degree <eb 04/06/17 00:32> Interpretation: nonspecific ST-T wave changes <eb 04/06/17 00:32> Disposition Clinical Impression: Congestive heart failure Qualifiers: Congestive heart failure type: combined Congestive heart failure chronicity: acute on chronic Qualified Code(s): I50.43 - Acute on chronic combined systolic (congestive) and diastolic (congestive) heart failure <Laney Ramos 04/06/17 01:18> Disposition: 02 To [facility] <Laney Ramos 04/06/17 01:18> Condition: Stable <Laney Ramos 04/06/17 01:18> Instructions: <Laney Ramos 04/06/17 01:18> Prescriptions: No Action Cyanocobalamin (Vitamin B-12) [Vitamin B-12] 1,000 mcg PO DAILY #0 tab Levothyroxine Sodium 50 mcg PO ACB #30 tab Aspirin 81 mg PO DAILY Duloxetine [Cymbalta] 90 mg PO DAILY Pravastatin Sodium 80 mg PO HS Coenzyme Q-10 [Co Q-10] 200 mg PO DAILY Acidoph/L.bulg/Bif.b/S.thermop [Bacid Caplet] 2 cap PO TIDWM tab Calcitonin Nasal [place] [Miacalcin [place]] 1 spray NS DAILY bottle Dronabinol [Marinol] 5 mg PO BID #60 cap Fludrocortisone [Florinef] 0.1 mg PO DAILY #30 tab Midodrine [Proamatine] 2.5 mg PO 0700,1100,1500 #90 tab Potassium Chloride [K-Dur] 20 meq PO TIDWM #90 tab Acetaminophen [Tylenol] 325 - 650 mg PO Q5H PRN tab PRN Reason: Discomfort Insulin Regular, Human [Novolin R] 10 unit SQ TIDWM <Laney Ramos 04/05/17 23:52> Referrals: Chantel Paz, DO [Family Provider] - <Laney Ramos 23:52> Forms: <Laney Ramos 04/05/17 23:52> Time of Disposition: 01:17 <Laney Ramos 04/06/17 01:18> - Seen By: midlevel <Laney Ramos 04/06/17 01:18>
[2017-04-06] MEDS ORDERED: FUROSEMIDE 20 MG/2 ML INJECTION IVP ONE (00:37)
[2017-04-06] MEDS: SALINE FLUSH 10ml SYRINGE IVF PRN ×2 (00:47→02:46)
[2017-04-06] MEDS ORDERED: HYDROCODONE/APAP 5mg/325mg TABLET PO PRN (01:40)
[2017-04-06] MEDS ORDERED: MORPHINE SULFATE 4mg INJECTION IVP PRN (01:40)
[2017-04-06] MEDS ORDERED: ONDANSETRON 4 MG/2 ML INJECTION IVP PRN (01:40)
[2017-04-06] MEDS ORDERED: DOCUSATE SODIUM 100 MG CAPSULE PO PRN (01:40)
[2017-04-06 02:17] VITALS: BMI 27.3
--- NOTE | 2017-04-06 03:25 | History & Physical Report ---
History of Present Illness Date: 04/06/17 Chief complaint: dyspnea HPI: This is a 82 y/o male who has been under the care of hospice for the past 5 months for ongoing worsening dementia with congestive heart failure. the patient was out with family today and had increased dyspnea. The patient returns home and his oxygen saturation is noted to be 70's%. Hospice was contacted who arrived and assessed the patient. Apparently the patient has had increased edema over the past 2 days. From almost no edema to feet edema 24 hours ago to edema that extends to his abdomen wall. The patient has had no real change in diet. no change in his home medications. Hospice had prepared for this eventuality that he would need oxygen therapy at home. Patient had acces to oxygen at home. Regardless Hospice discussed with family and they were not ready to let their loved one transition. They felt like he was having some very good days and they wanted this increased edema treated. Hospice had advised the family that if he didn't get therapy he would probably in the next 3 days. Thus the patient is brought to the ED where CXR demonstrates pleural effusion left greater than right with relatively stable labs. Of note old records are reviewed and demonstrate a preserved LV function of 83% recently. This is not systolic failure. There is note made of leaking "3 valves" ED discussed with dptyron who is the son in law and he recommended that the patient be a full code and that he be treated for worsening edema. The patient is thus admitted a full code to be treated with diuretic therapy as indicated. Review of Systems All systems PM: 10-point ROS was reviewed, no additional remarkable complaints except PFSH Patient Stated Medical History Cerebrovascular Accident Yes Cataracts Yes Coronary Artery Disease Yes Hypertension Yes Diabetes Mellitus Type 2 Yes Hx Incontinence Yes Hx Urinary Tract Infection Yes Clostridium Difficile Yes Depression Yes Surgical History: CABG 4 in 2010. Previous coronary stents 2 at proceeded his CABG no previous [place] - Social History Smoking status: Never smoker Medications Home Medications Medication Instructions Recorded Confirmed Type Aspirin 81 mg PO DAILY 01/02/17 01/25/17 History Insulin Regular, Human [Novolin R] See Protocol SQ TIDWM 01/25/17 04/06/17 History Cholestyramine/Aspartame 4 gm PO 04/06/17 History [Cholestyramine Light Packet] Gabapentin 300 mg PO BID 04/06/17 04/06/17 History Quetiapine Fumarate [Seroquel] 25 mg PO DAILY 04/06/17 04/06/17 History Sennosides [Senna] 8.6 mg PO BID 04/06/17 04/06/17 History fentaNYL [Fentanyl] 50 mcg TD Q3D 04/06/17 04/06/17 History Allergies Allergy/AdvReac Type Severity Reaction Status Date / Time hydrochlorothiazide Allergy Intermediate SWELLING Verified 01/25/17 22:40 Penicillins Allergy Unknown Verified 01/25/17 22:40 losartan potassium Allergy Intermediate SWELLING Uncoded 01/25/17 22:40 pioglitazone HCl Allergy Mild FLUID Uncoded 01/25/17 22:40 RETENTION midazolam HCl Allergy Unknown Uncoded 01/25/17 22:40 Exam Vital Signs: Temperature 96.1 F L 04/06/17 02:01 Pulse Rate 86 04/06/17 02:01 Respiratory Rate 16 04/06/17 02:01 Blood Pressure 136/75 04/06/17 02:01 Pulse Oximetry 97 04/06/17 02:01 Telemetry Rhythm: Sinus Rhythm Height/Weight/BMI: Height 1.73 m Weight 81.6 kg Body Mass Index 27.3 - Constitutional Present: mild distress, well nourished, well developed, average body habitus, cooperative - Routine HEENT Exam Head: Present: normocephalic, atraumatic Eye: Present: EOMI, conjunctivae pink ENT: Present: mucous membranes moist - Routine Neck Exam Present: supple, full ROM - Routine Respiratory Exam Comments: rhonchi in bases bilateral with diminished breath sounds in general - Routine Cardiovascular Exam Present: RRR, S3 - Routine Abdominal Exam Present: soft, normoactive bowel sounds, non distended, non tender - Routine Extremities Exam Present: edema, full ROM, normal capillary refill - Routine Skin Exam Present: intact - Routine Neurological Exam Present: alert, CN II-XII intact, altered mental status, moving all extremities , normal tone, normal speech. Absent: motor deficit, facial asymmetry - Routine Psychiatric Exam Present: cooperative. Absent: normal affect, normal thought process, good insight, good judgment, agitated Results - Labs CBC & Chem 7: 04/06/17 00:02 04/06/17 00:02 - Imaging and Cardiology Chest x-ray Additional comments: compression atelectasis right lung with effusion greater than left lung. mild cardiomegaly, changes of previous CABG Assessment and Plan (1) Anasarca Current visit: Yes Status: Acute (2) Heart failure Current visit: Yes Status: Acute (3) Dementia Current visit: Yes Status: Acute (4) CAD (coronary artery disease) Current visit: No Status: Acute Assessment and Plan: 1. anasarca acute POA: etiology not completely clear. patient had echo recent with preserved systolic funciton. not clear if diastolic dysfunction. patient not on diuretics at home. see HPI discussion. Patient on hospice for "heart failure" currently the family wants agressive evaluation. DNR rescinded. Patient given diuretic in ED with ramón. Will monitor I and O and make further considerations. Need pallative care team to engage to assist with expectations of family. Currently patient does not appear to be actively dying. 2. dementia type unspecified acute POA: currently able to carry a conversation. is aware of his family in room. able to answer questions easily. 3. dm 2 chronic POA: they have been treating at home. will do correctional plan acutely 4. CAD chronic POA: s/p CABG. currently denies any chest pain. EKG isnon ischemic. will follow, will not place on tele acutely extremely challenging case. presents as a "hospice" failure from home and on exam not in great distress with obvious new edema. Family rescinded hospice and is a full code currently. workup as outlined above. DVT Prophylaxis: SCD's Resuscitation Status: Full Code - Physician Narrative Narrative: Date: 04/06/17 Time: 0320 Hospital Course Summary Disclaimer: The visit summary below is not to be considered part of the above Progress Note.
[2017-04-06] MEDS ORDERED: MORPHINE SULFATE 2mg INJECTION IVP PRN (07:30)
--- NOTE | 2017-04-06 08:11 | XRay Report ---
Indication: incrased SOA hx CHF PROCEDURE: XR chest 1V: Encounter: Initial Comparison: January 25, 2017 Findings: New bilateral pleural effusions left greater than right with bibasilar airspace consolidation. Hazy airspace opacities in both mid to lower lung brewer. No pneumothorax. Cardiac silhouette is moderately enlarged. Poststernotomy changes. Pulmonary vascularity is prominent with cephalization. Impression: Moderate to severe CHF. .
[2017-04-06] MEDS: SENNOSIDES 8.6 MG TABLET PO SCH ×2 (11:12→22:06)
[2017-04-06] MEDS: GABAPENTIN 300 MG CAPSULE PO SCH ×2 (11:16→22:05)
[2017-04-06] MEDS: QUETIAPINE 25 MG TABLET PO SCH (11:16)
[2017-04-06] MEDS: MIDODRINE 2.5 MG TABLET PO SCH ×2 (11:16→17:22)
[2017-04-06] MEDS: FUROSEMIDE 40 MG/4 ML INJECTION IVP SCH ×2 (11:23→22:04)
[2017-04-06] MEDS: ASPIRIN 81 MG CHEWABLE TABLET PO SCH (11:23)
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
[2017-04-06] MEDS: INSULIN ASPART 100unit/ml INJECTION SQ PRN ×2 (17:23→22:05)
[2017-04-06] MEDS: ENOXAPARIN 40 MG/0.4 ML INJECTION SQ SCH (17:23)
[2017-04-07] MEDS ORDERED: FALL RISK - PHARMACY CONSULT MC ONE (02:35)
[2017-04-07] MEDS: LEVOTHYROXINE 50 MCG TABLET PO SCH (06:25)
[2017-04-07] MEDS: MIDODRINE 2.5 MG TABLET PO SCH ×3 (06:25→15:01)
[2017-04-07] MEDS: ENOXAPARIN 40 MG/0.4 ML INJECTION SQ SCH (09:29)
[2017-04-07] MEDS: FUROSEMIDE 40 MG/4 ML INJECTION IVP SCH ×2 (09:30→22:44)
[2017-04-07] MEDS: GABAPENTIN 300 MG CAPSULE PO SCH ×2 (09:41→22:44)
[2017-04-07] MEDS: QUETIAPINE 25 MG TABLET PO SCH (09:42)
[2017-04-07] MEDS: SENNOSIDES 8.6 MG TABLET PO SCH ×2 (09:42→22:44)
[2017-04-07] MEDS: ASPIRIN 81 MG CHEWABLE TABLET PO SCH (09:42)
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
--- NOTE | 2017-04-07 15:44 | Echocardiogram ---
DATE OF PROCEDURE April 06, 2017 REFERRING PHYSICIAN Franco Amaya MD This is a two-dimensional echo with spectral Doppler, color-flow and M-mode. It was obtained in a patient with congestive heart failure. Left atrium is dilated. Left ventricular end-diastolic dimension is normal. Left ventricular wall thickness is normal. Severe global hypokinesia is present with ejection fraction no more than 20%. Right atrium is dilated. Right ventricle is normal. Mitral annulus is calcified. Mitral valve leaflets are normal with mild mitral regurgitation. Aortic valve is a trileaflet structure with fibrocalcific changes with no stenosis or insufficiency. Tricuspid valve shows moderate tricuspid regurgitation with gomzpnhd-ac-vjimza pulmonary hypertension with estimated pulmonary artery systolic pressure of 58-63. Pulmonary valve shows mild pulmonary insufficiency. There is no pericardial effusion. Large pleural effusion is present. IMPRESSION 1. Biatrial dilation. 2. Global hypokinesia with ejection fraction no more than 20%. 3. Large pleural effusion present. 4. Mitral annulus calcification with mild mitral regurgitation. 5. Aortic sclerosis. 6. Moderate tricuspid regurgitation with [id number] pulmonary hypertension with estimated pulmonary artery systolic pressure of 58-63. 7. Mild pulmonary insufficiency. MTDD
[2017-04-07] MEDS: CARVEDILOL 3.125 MG TABLET PO SCH (17:34)
[2017-04-08] MEDS: LEVOTHYROXINE 50 MCG TABLET PO SCH (07:06)
[2017-04-08] MEDS: ENOXAPARIN 40 MG/0.4 ML INJECTION SQ SCH (09:00)
[2017-04-08] MEDS: FUROSEMIDE 40 MG/4 ML INJECTION IVP SCH ×2 (09:00→21:45)
[2017-04-08] MEDS: SALINE FLUSH 10ml SYRINGE IVF PRN (09:00)
[2017-04-08] MEDS: MIDODRINE 2.5 MG TABLET PO SCH ×4 (09:01→16:14)
[2017-04-08] MEDS: GABAPENTIN 300 MG CAPSULE PO SCH ×2 (09:01→21:45)
[2017-04-08] MEDS: SENNOSIDES 8.6 MG TABLET PO SCH ×3 (09:01→21:47)
[2017-04-08] MEDS: QUETIAPINE 25 MG TABLET PO SCH (09:01)
[2017-04-08] MEDS: ASPIRIN 81 MG CHEWABLE TABLET PO SCH (09:01)
[2017-04-08] MEDS: CARVEDILOL 3.125 MG TABLET PO SCH (09:01)
[2017-04-08] MEDS: INSULIN ASPART 100unit/ml INJECTION SQ PRN (11:21)
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
[2017-04-09] MEDS: LEVOTHYROXINE 50 MCG TABLET PO SCH (06:04)
[2017-04-09 07:43] VITALS: BP 165/95; RESP 12; TEMP 96.5
[2017-04-09] MEDS: QUETIAPINE 25 MG TABLET PO SCH (08:18)
[2017-04-09] MEDS: GABAPENTIN 300 MG CAPSULE PO SCH (08:18)
[2017-04-09] MEDS: ASPIRIN 81 MG CHEWABLE TABLET PO SCH (08:18)
[2017-04-09] MEDS: SENNOSIDES 8.6 MG TABLET PO SCH (08:18)
[2017-04-09] MEDS: ENOXAPARIN 40 MG/0.4 ML INJECTION SQ SCH (08:19)
[2017-04-09] MEDS: FUROSEMIDE 40 MG/4 ML INJECTION IVP SCH (08:19)
[2017-04-09] MEDS: MIDODRINE 2.5 MG TABLET PO SCH ×2 (08:19→12:03)
--- NOTE | 2017-04-09 10:46 | Extended Care Facility Orders ---
<Sandy Lau V - Last Filed: 04/09/17 10:45> Admission Orders Admit to:: Jail Allergies/Adverse Reactions: Allergies hydrochlorothiazide Allergy (Intermediate, Verified 01/25/17 22:40) SWELLING WHOLE BODY "WENT NUTS" Penicillins Allergy (Unknown, Verified 01/25/17 22:40) losartan potassium Allergy (Intermediate, Uncoded 01/25/17 22:40) SWELLING WHOLE BODY "WENT NUTS" pioglitazone HCl Allergy (Mild, Uncoded 01/25/17 22:40) FLUID RETENTION midazolam HCl Allergy (Unknown, Uncoded 01/25/17 22:40) Admitting Diagnosis: Anasarca Admitting Physician: Franco Amaya MD Attending Physician: Franco Amaya MD Code Status: Full Code Anticiapted Length of Stay: 30 days or less Rehab Potential: fair Rehab Prognosis: fair May use Facility Protocol or Standing Orders: Yes May have flu vaccine: Yes Evaluations/Treatment: Speech, PT, OT Jail Certification: I certify that SNF services are required to be given on an Inpatient basis because of the patients need for fdc care on a continuing basis for the condition(s) for which he/she received inpatient hospital services prior to his/her transfer to the SNF. SNF inpatient care is necessary for the following reasons Indication for Jail: Other (PT,OT,Speech) - Additional Information Referrals: Chantel Paz DO [Family Provider] - (Follow up in 1 week ) Additional Orders: Montior Accu-Cheks fasting and 2 hours postprandial. Use sliding scale insulin as ordered. Oxygen to keep sats greater than 90%. Patient will need a BMP in 1 week with primary care provider <Franco Amaya - Last Filed: 04/09/17 12:17> Admission Orders Admitting Diagnosis: Anasarca Admitting Physician: Franco Amaya MD Attending Physician: Franco Amaya MD Code Status: Full Code Jail Certification: I certify that SNF services are required to be given on an Inpatient basis because of the patients need for fdc care on a continuing basis for the condition(s) for which he/she received inpatient hospital services prior to his/her transfer to the SNF. SNF inpatient care is necessary for the following reasons
[2017-04-09 11:43] VITALS: PULSE 65; O2SAT 99
[2017-04-09] MEDS: INSULIN ASPART 100unit/ml INJECTION SQ PRN (12:03)
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
[2017-04-09] MEDS ORDERED: FUROSEMIDE 20 MG TABLET PO SCH (14:00)
== END 2017-04-09 13:20 | DRG 293 ==
LOC: ED 22:57 → MED 04-06 01:19 → SUATTDRO 04-06 01:19 → MED 04-06 01:55
PROVIDERS: ADMIT Emergency Medicine; ATTEND Internal Medicine